=== PATIENT | female | born 1945 | race Caucasian/White ===

== ENCOUNTER 2022-07-05 17:54 | Emergency (ER) | payer MEDICARE, OTHER ==
[2022-07-05 18:08] VITALS: PULSE 96; RESP 18; TEMP 97.8
[2022-07-05] MEDS ORDERED: LORazepam 2 MG/ML INJ IV STA (18:43)
[2022-07-05 18:49] LABS: Appearance,Urine Clear (Clear); Bacteria,Urine Few /hpf; Bilirubin,Urine Negative (Negative); Blood,Urine Negative (Negative); Color,Urine Colorless; Glucose,Urine (UA) Negative (Negative); Ketones,Urine 1+ (Negative); Leukocyte Esterase,Urine Small (Negative); Mucus,Urine Rare /hpf; Nitrite,Urine Negative (Negative); Protein,Urine Negative (Negative); RBC,Urine 1 /hpf (0-5); Specific Gravity,Urine 1.003 (1.001-1.035); Urobilinogen,Urine <2.0 mg/dL (<2.0); WBC,Urine 6 /hpf (0-5)
[2022-07-05 19:01] LABS: Amphetamine Screen,Urine Not Detected (NotDetected); Barbiturate Screen,Urine Not Detected (NotDetected); Benzodiazepines Screen,Urine Detected (NotDetected); Cocaine Screen,Urine Not Detected (NotDetected); Methadone Screen, Urine Not Detected (NotDetected); Opiate Screen,Urine Not Detected (NotDetected); Oxycodone Screen, Urine Not Detected (NotDetected); Phencyclidine Screen,Urine Not Detected (NotDetected); Tricyclic Antidepressant,Urine Not Detected (NotDetected); Urn Cannabinoid Scrn Not Detected (NotDetected)
--- NOTE | 2022-07-05 19:28 | XR ---
EXAMINATION TYPE: XR ankle complete LT DATE OF EXAM: 07/05/2022 COMPARISON: NONE HISTORY: Pain TECHNIQUE: 3 views FINDINGS: Ankle mortise is anatomic. There is a single screw fusing the subtalar joint. There is mild soft tissue swelling over the lateral malleolus. There is plantar calcaneal spurring. IMPRESSION: Lateral soft tissue swelling. No fracture.
--- NOTE | 2022-07-05 19:28 | XR ---
EXAMINATION TYPE: XR foot complete LT DATE OF EXAM: 07/05/2022 COMPARISON: NONE HISTORY: Pain TECHNIQUE: 3 views FINDINGS: There is a single screw fusing the subtalar joint. Metatarsals are intact. There is narrowi ng and spurring at the first MP joint. No fracture nor dislocation. There is plantar calcaneal spurri ng. IMPRESSION: No acute abnormality of the left foot. No fracture.
--- NOTE | 2022-07-05 19:29 | XR ---
EXAMINATION TYPE: XR tibia fibula LT DATE OF EXAM: 07/05/2022 COMPARISON: NONE HISTORY: Pain TECHNIQUE: 3 views FINDINGS: The tibia and fibula appear intact. There is left knee prosthesis. Components appear in angelique tomic position. There is some mild vascular calcification. IMPRESSION: No acute abnormality of the left tibia and fibula.
--- NOTE | 2022-07-05 20:07 | ED ---
Overdose HPI - General Chief Complaint: Overdose Stated Complaint: overdose Time Seen by Provider: 07/05/22 18:00 Source: EMS Mode of arrival: EMS Limitations: no limitations - History of Present Illness Initial Comments: 77-year-old female past medical history of hypertension who presents to the emergency department reporting overdosed on the medication. Patient reports that she has been having some left leg pain since she sustained a fall last week. She was supposed to see her primary care and have an x-ray performed today. She was having pain in the lower extremity and therefore she took her tramadol. She thought she was due for another dose however ended up taking two 50 mg tramadol only 3 hours apart instead of 6 hours apart. Patient arrives extremely anxious. She takes 1 mg of Xanax 3 times daily however has been out for the past 4 days because the pharmacy has been out of the medication. was able to successfully picker / packer the medication today however patient called EMS for her symptoms prior to him coming. No reported confusion. She denies chest pain or shortness of breath. No numbness, tingling or weakness in her arteries. No alleviating, precipitating or modifying factors - Related Data Allergies Allergy/AdvReac Type Severity Reaction Status Date / Time Unable to Assess Allergy Verified 07/05/22 18:09 Review of Systems ROS Statement: Those systems with pertinent positive or pertinent negative responses have been documented in the HPI. ROS Other: All systems not noted in ROS Statement are negative. Past Medical History Past Medical History: Hypertension, Thyroid Disorder Additional Past Medical History / Comment(s): "smell disorder" (unknown name) Smoking Status: Former smoker Past Alcohol Use History: None Reported Past Drug Use History: None Reported General Exam Limitations: no limitations General appearance: alert, anxious Head exam: Present: atraumatic, normocephalic, normal inspection Eye exam: Present: normal appearance, PERRL, EOMI. Absent: scleral icterus, conjunctival injection, periorbital swelling ENT exam: Present: normal exam, mucous membranes moist Neck exam: Present: normal inspection. Absent: tenderness, meningismus, lymphadenopathy Respiratory exam: Present: normal lung sounds bilaterally. Absent: respiratory distress, wheezes, rales, rhonchi, stridor Cardiovascular Exam: Present: regular rate, normal rhythm, normal heart sounds. Absent: systolic murmur, diastolic murmur, rubs, gallop, clicks GI/Abdominal exam: Present: soft, normal bowel sounds. Absent: distended, tenderness, guarding, rebound, rigid Extremities exam: Present: normal inspection, full ROM, normal capillary refill. Absent: tenderness, pedal edema, joint swelling, calf tenderness Back exam: Present: normal inspection Neurological exam: Present: alert, oriented X3, CN II-XII intact Psychiatric exam: Present: normal affect, normal mood Skin exam: Present: warm, dry, intact, normal color. Absent: rash Course Vital Signs 07/05/22 07/05/22 17:58 20:29 Temperature 97.8 F Pulse Rate 96 96 Respiratory 18 18 Rate Blood Pressure 126/75 138/81 O2 Sat by Pulse 98 98 Oximetry Medical Decision Making - Medical Decision Making Was pt. sent in by a medical professional or institution (GILMER Yoder, [employer] M[employer]ING [employer]IVER, urgent care, hospital, or assisted...) When possible be specific @ -No Did you speak to anyone other than the patient for history (EMS, parent, family, police, friend...)? What history was obtained from this source @ -EMS Did you review nursing and triage notes (agree or disagree)? Why? @ -I reviewed and agree with nursing and triage notes Were old charts reviewed (outside hosp., previous admission, EMS record, old EKG, old radiological studies, urgent care reports/EKG's, assisted records)? Report findings @ -No old charts were reviewed Differential Diagnosis (chest pain, altered mental status, abdominal pain women, abdominal pain men, vaginal bleeding, weakness, fever, dyspnea, syncope, headache, dizziness, GI bleed, back pain, seizure, CVA, palpatations, mental health, musculoskeletal)? @ -anxiety attack, SVT, ACS EKG interpreted by me (3pts min.). @ -yes X-rays interpreted by me (1pt min.). @ -yes CT interpreted by me (1pt min.). @ -None done U/S interpreted by me (1pt. min.). @ -None done What testing was considered but not performed or refused? (CT, X-rays, U/S, labs)? Why? @ -None What meds were considered but not given or refused? Why? @ -No Did you discuss the management of the patient with other professionals (professionals i.e. GILMER Yoder, B[employer] MIXING TRUCK DRIVER, lab, RT, psych nurse, social media coordinator, gate manager, teacher, financial compliance officer, casework specialist)? Give summary @ -No Was smoking cessation discussed for >3mins.? @ -No Was critical care preformed (if so, how long)? @ -No Were there social determinants of health that impacted care today? How? (Homelessness, low income, unemployed, alcoholism, drug addiction, transportation, low edu. Level, literacy, decrease access to med. care, custodial, rehab)? @ -None Was there de-escalation of care discussed even if they declined (Discuss DNR or withdrawal of care, Hospice)? DNR status @ -No What co-morbidities impacted this encounter? (DM, HTN, Smoking, COPD, CAD, C ancer, CVA, ARF, Chemo, Hep., AIDS, mental health diagnosis, sleep apnea, morbid obesity)? @ -anxiety Was patient admitted / discharged? Hospital course, mention meds given and route, prescriptions, significant lab abnormalities, going to OR and other pertinent info. @ -Upon arrival patient placed in room 23. Thorough history and physical exam was performed. Patient is provided with a dose of Ativan as there is concern for benzo withdrawal at this time. She is sent for x-ray of her left foot, ankle and tib-fib which demonstrates no acute fractures. Patient resting more comfortably in bed. Discussed diagnosis, differential treatment options. Patient stable for discharge home at this time and instructed to follow up with primary care doctor. Resume taking her pain and anxiety medications as directed. Return for new symptoms. Patient discharged home in stable condition Undiagnosed new problem with uncertain prognosis? @ -yes Drug Therapy requiring intensive monitoring for toxicity (Heparin, Nitro, Insulin, Cardizem)? @ -No Were any procedures done? @ -No Diagnosis/symptom? @ -acute anxiety, benzo withdrawal, left leg pain Acute, or Chronic, or Acute on Chronic? @ -default Uncomplicated (without systemic symptoms) or Complicated (systemic symptoms)? @ -complicated Side effects of treatment? @ -No Exacerbation, Progression, or Severe Exacerbation? @ -No Poses a threat to life or bodily function? How? (Chest pain, [place], [place], pneumonia, PE, COPD, DKA, ARF, appy, cholecystitis, CVA, Diverticulitis, Homicidal, Suicidal, threat to staff... and all critical care pts) @ -yes - Lab Data Lab Results 07/05/22 Range/Units 18:13 Urine Color Colorless Urine Appearance Clear (Clear) Urine pH 7.0 (5.0-8.0) Ur Specific [place] 1.003 (1.001-1.035) Urine Protein Negative (Negative) Urine Glucose (UA) Negative (Negative) Urine Ketones 1+ H (Negative) Urine Blood Negative (Negative) Urine Nitrite Negative (Negative) Urine Bilirubin Negative (Negative) Urine Urobilinogen <2.0 (<2.0) mg/dL Ur Leukocyte Esterase Small H (Negative) Urine RBC 1 (0-5) /hpf Urine WBC 6 H (0-5) /hpf Urine Bacteria Few H (None) /hpf Urine Mucus Rare H (None) /hpf Urine Opiates Screen Not Detected (NotDetected) Ur Oxycodone Screen Not Detected (NotDetected) Urine Methadone Screen Not Detected (NotDetected) Ur Propoxyphene Screen Not Detected (NotDetected) Ur Barbiturates Screen Not Detected (NotDetected) U Tricyclic Antidepress Not Detected (NotDetected) Ur Phencyclidine Scrn Not Detected (NotDetected) Ur Amphetamines Screen Not Detected (NotDetected) U Methamphetamines Scrn Not Detected (NotDetected) U Benzodiazepines Scrn Detected H (NotDetected) Urine Cocaine Screen Not Detected (NotDetected) U Marijuana (THC) Screen Not Detected (NotDetected) - EKG Data EKG Comments: EKG demonstrates sinus rhythm with a rate of 82. OH interval 181. QRS 82. QTC of 408. No acute ST segment elevations or depressions Disposition Clinical Impression: Misuse of medication, Benzodiazepine withdrawal, Leg pain Disposition: HOME SELF-CARE Condition: Stable Instructions (If sedation given, give patient instructions): Leg Pain (ED) Additional Instructions: Begin taking your medications as directed. You can take another dose of your Xanax tonight. Follow-up with your doctor and return for any new or worsening symptoms Is patient prescribed a controlled substance at d/c from ED?: No Referrals: Curt Glass DO [Primary Care Provider] - 1-2 days Madi Selby MD [STAFF PHYSICIAN] - 1-2 days Time of Disposition: 20:06
[2022-07-05 20:31] VITALS: BP 138/81
== END 2022-07-05 20:39 | disposition home or self-care (01) ==
LOC: EC 17:54
DX: T40.421A Poisoning by tramadol, accidental (unintentional), initial encounter (principal); F13.239 Sedative, hypnotic or anxiolytic dependence with withdrawal, unspecified; M79.605 Pain in left leg; I10 Essential (primary) hypertension; Z87.891 Personal history of nicotine dependence; W19.XXXA Unspecified fall, initial encounter
CPT/HCPCS: 93005; 81001; 80306; 73590; 73610; 73630; 99285; 96374; J2060

== ENCOUNTER → 2023-03-13 | Outpatient (CLI) | payer MEDICARE, OTHER ==
--- NOTE | 2023-03-15 16:21 | CT ---
EXAMINATION TYPE: CT chest wo con DATE OF EXAM: 03/13/2023 COMPARISON: None available HISTORY: 78-year-old female S25.41, pain, sprain of ribs, fall TECHNIQUE: Contiguous axial scanning of the chest without IV contrast. Coronal/sagittal reconstructio ns performed. CT DLP: 393mGycm. Automatic exposure control utilized for a dose reduction. FINDINGS: There are asymmetrically increased densities along the upper outer quadrant right breast extending in to the right axilla. Suspect some surgical clips in the left breast. The heart is upper limits of normal in size without pericardial effusion. Scattered three-vessel ronel nary calcifications are present. Aorta normal caliber with mild atherosclerotic calcifications and conventional arch vessel branching anatomy. No thoracic lymphadenopathy by CT size criteria. Borderline caliber to the main right and left pulmonary arteries measuring up to 2.5 cm may reflect u nderlying pulmonary hypertension. Minimal emphysematous change. Some strandy atelectasis at the left base. No consolidation or pleural effusion. Visualized upper abdomen shows nephrolithiasis bilaterally measuring up to 1.7 cm. Accentuated mid thoracic kyphosis and moderate degenerative disc disease. No acute rib fracture ident ified. IMPRESSION: 1. COPD with minimal emphysema. 2. Coronary artery disease with scattered three-vessel coronary artery calcifications. 3. Asymmetrically increased densities along the upper outer quadrant of the right breast extending in to the right axilla. Unclear if this represents injury and bruising related to the patient's reported fall or if there was previous surgery/post treatment change here. Clinically correlate as to the nee d for further diagnostic mammogram and ultrasound evaluation. 4. There appears to be some surgical clips in the left breast. Again, clinically correlate.
== END | disposition home or self-care (01) ==
LOC: RADCTMAIN 12:23
PROVIDERS: ATTEND Internal Medicine
DX: S23.41XA Sprain of ribs, initial encounter (principal); J43.9 Emphysema, unspecified; J44.9 Chronic obstructive pulmonary disease, unspecified; J98.4 Other disorders of lung
CPT/HCPCS: 71250

== ENCOUNTER → 2023-04-26 | Outpatient (CLI) | payer MEDICARE, OTHER ==
--- NOTE | 2023-04-26 14:33 | MM ---
Reason for Exam: Additional evaluation requested from prior study. Last mammogram was performed 1 year(s) and 6 month(s) ago. Patient History: Menarche at age 9. First Full-Term at age 32. Late child-bearing (after 30). Left ovary removed at age 43. Right ovary removed at age 43. Hysterectomy at age 43. Postmenopausal. Breast cancer, left, under age 50. Breast cancer, right, at or over age 50. Maternal cousin had ovarian cancer under age 50. Sister had breast cancer, bilateral, under age 50. Prior Study Comparison: 06/30/2019 Bilateral Diagnostic Mammogram, [facility]. 07/22/2020 Bilateral Diagnostic Mammogram, [facility]. 11/16/2021 Bilateral Screening Mammogram, [facility]. Tissue Density: The breast tissue is heterogeneously dense. This may lower the sensitivity of mammography. Findings: Analyzed By CAD. Pattern appears stable. Multiple surgical clips are within the left breast. Some breast distortion is on the right or prior scar marker. Benign vascular calcifications on the right. No suspicious groups of microcalcifications, spiculated or lobular masses, architectural distortion or other secondary signs of malignancy are mammographically apparent. Overall Assessment: Benign, BI-RAD 2 Management: Diagnostic Mammogram of both breasts in 1 year. A negative mammogram report should not preclude additional follow up of suspicious palpable abnormalities. Patient should continue monthly self breast exam. A clinical breast exam by your physician is recommended on an annual basis and results should be correlated with mammographic findings. Electronically signed and approved by: Kirt Jeter D.O. Radiologis
--- NOTE | 2023-04-26 17:42 | USB ---
Reason for Exam: Follow-up at short interval from prior study. Patient History: Menarche at age 9. First Full-Term at age 32. Late child-bearing (after 28). Left ovary removed at age 43. Right ovary removed at age 43. Hysterectomy at age 43. Postmenopausal. Breast cancer, left, under age 50. Breast cancer, right, at or over age 50. Maternal cousin had ovarian cancer under age 50. Sister had breast cancer, bilateral, under age 50. Technique: Method: Targeted. Prior Study Comparison: 06/30/2019 Bilateral Diagnostic Mammogram, [facility]. 07/22/2020 Bilateral [facility] M[facility], [facility]. 07/22/2020 Right Diagnostic Ultrasound, [facility]. 11/16/2021 Bilateral Screening Mammogram, [facility]. 11/16/2021 Right Diagnostic Ultrasound, [facility]. Findings: The axilla of the right breast was scanned. No solid or cystic masses are identified.. Right axilla appears unremarkable. Overall Assessment: Negative, BI-RAD 1 Management: Diagnostic Mammogram of both breasts in 1 year. A clinical breast exam by your physician is recommended on an annual basis and results should be correlated with mammographic findings. This exam should not preclude additional follow-up of suspicious palpable abnormalities. Results were given to the patient verbally at the time of exam. Electronically signed and approved by: Kirt Jeter D.O. Radiologis
== END | disposition home or self-care (01) ==
LOC: RADMAMWWP 13:45
PROVIDERS: ATTEND Internal Medicine
DX: C50.919 Malignant neoplasm of unspecified site of unspecified female breast (principal); R92.333 Mammographic heterogeneous density, bilateral breasts; Z80.3 Family history of malignant neoplasm of breast; Z78.0 Asymptomatic menopausal state
CPT/HCPCS: 77066; 76642; G0279; 77062

== ENCOUNTER → 2023-05-18 | Outpatient (CLI) | payer MEDICARE, OTHER ==
--- NOTE | 2023-05-18 16:20 | CT ---
EXAMINATION TYPE: CT abdomen pelvis wo con DATE OF EXAM: 05/18/2023 COMPARISON: None HISTORY: left flank pain CT DLP: 361.9 mGycm Automated exposure control for dose reduction was used. TECHNIQUE: Helical acquisition of images was performed from the lung bases through the pelvis. FINDINGS: Lung bases are clear. There are 3 nonobstructing calcifications in the right kidney the largest of which measures 6.3 mm. T here are multiple clusters of calcifications in the left kidney which appears moderately atrophic. Th e largest cluster of calcifications in the left upper pole and measures 19 mm. There is no definite h ydronephrosis but the proximal ureter is mildly dilated and there is a 5 mm calculus in the proximal left ureter. Caliber of the abdominal aorta is normal and there is no retroperitoneal adenopathy. Gallbladder is normal. There is no biliary ductal dilatation. There is no organomegaly of the solid v isceral organs of the upper abdomen. The bowel loops are normal and there is no obstruction or inflammation. There is no free intraperiton eal air-fluid. There is no pelvic mass or adenopathy. The osseous structures are intact. IMPRESSION: 1. Multiple large clusters of calcifications within the left kidney which appears moderately atrophic . There is no dilatation of the pelvicalyceal system but the proximal left ureter is mildly dilated a nd there is a 5 mm proximal left ureteral calculus. 2. 3 nonobstructing calcifications the right kidney the largest of which is 6.2 mm.
== END | disposition home or self-care (01) ==
LOC: RADCTMAIN 13:58
PROVIDERS: ATTEND Urology
DX: N20.2 Calculus of kidney with calculus of ureter (principal); N28.89 Other specified disorders of kidney and ureter
CPT/HCPCS: 74176

== ENCOUNTER 2023-10-26 19:05 | Emergency (ER) | payer MEDICARE, OTHER ==
[2023-10-26 19:15] VITALS: BP 140/81; PULSE 66; RESP 18; TEMP 97.9
--- NOTE | 2023-10-26 19:35 | ED ---
General Adult HPI - General Chief complaint: Recheck/Abnormal Lab/Rx Stated complaint: Allergic Reaction Time Seen by Provider: 10/26/23 19:19 Source: patient, EMS Mode of arrival: EMS - History of Present Illness Initial comments: 78-year-old female presenting with chief complaint of burning in the nose and mouth. Patient reports that she is very sensitive to scents. She had someone come over today to help her clean who was wearing perfume. Since then she has had worsening burning in the nose and mouth. She is having no difficulty breathing or swallowing. No nausea vomiting or abdominal pain. No swelling of the lips or face. - Related Data Home Medications Medication Instructions Recorded Confirmed ALPRAZolam [Xanax] 1 mg PO BID 06/15/23 06/19/23 Atorvastatin [Lipitor] 40 mg PO HS 06/15/23 06/19/23 Cyanocobalamin [Vitamin B-12] 500 mcg PO DAILY 06/15/23 06/15/23 Ezetimibe [Zetia] 10 mg PO 1600 06/15/23 06/19/23 Levocetirizine Dihydrochloride 5 mg PO QAM 06/15/23 06/19/23 [Xyzal] Levothyroxine Sodium [Synthroid] 25 mcg PO DAILY 06/15/23 06/19/23 Losartan Potassium 50 mg PO 1600 06/15/23 06/19/23 Magnesium Oxide [Mag-Ox] 500 mg PO HS 06/15/23 06/15/23 Pyridoxine [Vitamin B-6] 25 mg PO QAM 06/15/23 06/15/23 Tromethamine Unknown Dose 1 dose PO Q10D 06/15/23 06/19/23 Venlafaxine HCl [Effexor] 37.5 mg PO QAM 06/15/23 06/19/23 atenoloL [Tenormin] 25 mg PO BID 06/15/23 06/19/23 cefUROXime axetiL [Ceftin] 500 mg PO BID 06/18/23 06/19/23 traMADol HCl [Ultram] 50 mg PO BID PRN 06/18/23 06/19/23 Previous Rx's Medication Instructions Recorded Ketorolac [Toradol] 10 mg PO Q6HR PRN #15 tab 06/19/23 Allergies Allergy/AdvReac Type Severity Reaction Status Date / Time amoxicillin AdvReac "I had Verified 10/26/23 19:16 diarrheafor 4 days." Review of Systems ROS Statement: Those systems with pertinent positive or pertinent negative responses have been documented in the HPI. ROS Other: All systems not noted in ROS Statement are negative. Past Medical History Past Medical History: Hypertension, Thyroid Disorder Additional Past Medical History / Comment(s): "smell disorder" (unknown name) History of Any Multi-Drug Resistant Organisms: None Reported Additional Past Surgical History / Comment(s): Lt breast mastectomy, lt and rt breast bx. "Blocked small intestine 2 years ago.", kidney stones removed 08/2023 Past Anesthesia/Blood Transfusion Reactions: No Reported Reaction Past Psychological History: Anxiety Smoking Status: Former smoker Past Alcohol Use History: None Reported Past Drug Use History: None Reported - Past Family History Mother Family Medical History: No Reported History General Exam General appearance: alert, in no apparent distress Head exam: Present: atraumatic, normocephalic Eye exam: Present: normal appearance, EOMI. Absent: periorbital swelling ENT exam: Present: normal oropharynx, mucous membranes moist Expanded Mouth exam: Present: normal external inspection Neck exam: Present: normal inspection. Absent: meningismus Respiratory exam: Present: normal lung sounds bilaterally. Absent: respiratory distress, wheezes, rales, rhonchi, stridor Cardiovascular Exam: Present: regular rate, normal rhythm, normal heart sounds. Absent: systolic murmur, diastolic murmur, rubs, gallop, clicks Neurological exam: Present: alert, oriented X3 Psychiatric exam: Present: normal affect, normal mood Skin exam: Present: warm, dry Course Vital Signs 10/26/23 19:07 Temperature 97.9 F Pulse Rate 66 Respiratory 18 Rate Blood Pressure 140/81 O2 Sat by Pulse 99 Oximetry Medical Decision Making - Medical Decision Making Was pt. sent in by a medical professional or institution (, PA, NO EXPERIENCE, urgent care, hospital, or longterm...) When possible be specific @ -No Did you speak to anyone other than the patient for history (EMS, parent, family, police, friend...)? What history was obtained from this source @ -No Did you review nursing and triage notes (agree or disagree)? Why? @ -I reviewed and agree with nursing and triage notes Were old charts reviewed (outside hosp., previous admission, EMS record, old EKG, old radiological studies, urgent care reports/EKG's, longterm records)? Report findings @ -No old charts were reviewed Differential Diagnosis (chest pain, altered mental status, abdominal pain women, abdominal pain men, vaginal bleeding, weakness, fever, dyspnea, syncope, headache, dizziness, GI bleed, back pain, seizure, CVA, palpatations, mental health, musculoskeletal)? @ -Differential includes general allergic reaction, anaphylaxis, general irritation, this is not an all-inclusive list EKG interpreted by me (3pts min.). @ -As above X-rays interpreted by me (1pt min.). @ -None done CT interpreted by me (1pt min.). @ -None done U/S interpreted by me (1pt. min.). @ -None done What testing was considered but not performed or refused? (CT, X-rays, U/S, labs )? Why? @ -None What meds were considered but not given or refused? Why? @ -None Did you discuss the management of the patient with other professionals (professionals i.e. , PA, NO EXPERIENCE, lab, RT, psych nurse, health care social worker, release and technical records clerk, teacher, court collections officer, outsole caser)? Give summary @ -No Was smoking cessation discussed for >3mins.? @ -No Was critical care preformed (if so, how long)? @ -No Were there social determinants of health that impacted care today? How? (Homelessness, low income, unemployed, alcoholism, drug addiction, transportation, low edu. Level, literacy, decrease access to med. care, correction, rehab)? @ -No Was there de-escalation of care discussed even if they declined (Discuss DNR or withdrawal of care, Hospice)? DNR status @ -No What co-morbidities impacted this encounter? (DM, HTN, Smoking, COPD, CAD, Cancer, CVA, ARF, Chemo, Hep., AIDS, mental health diagnosis, sleep apnea, morbid obesity)? @ -None Was patient admitted / discharged? Hospital course, mention meds given and route, prescriptions, significant lab abnormalities, going to OR and other pertinent info. @ -78-year-old female presenting with chief complaint of burning in the nose and mouth after smelling perfume while at home. States that she is very sensitive to strong scents. On exam there are no signs of angioedema, heart and lungs are clear to auscultation. She shows no acute signs of distress. She is treated with hydroxyzine and Pepcid. On reassessment she does report some continued burning in the nostrils. Patient previously denied abdominal pain, now is complaining of burning abdominal pain. States that she regularly has this after taking her Lipitor and has been ongoing for several weeks. No changes. No nausea or vomiting. No chest pain or difficulty breathing. Basic labs were obtained which show no leukocytosis or anemia. Amylase and lipase are WNL. AST 38. Patient was given a GI cocktail. She is resting showing no acute signs of distress. Considering symptoms have been ongoing for quite some time she may follow-up with her PCP. Discharged home. Follow-up with PCP. Report back to ER with any new or worsening symptoms. Discussed return parameters and answered all questions. Patient conveyed verbal understanding and agreed to the plan. I discussed this case in detail with my attending Dr. Prieto Undiagnosed new problem with uncertain prognosis? @ -No Drug Therapy requiring intensive monitoring for toxicity (Heparin, Nitro, Insulin, Cardizem)? @ -No Were any procedures done? @ -No Diagnosis/symptom? @ -Increase sensitivity to smell, gastritis Acute, or Chronic, or Acute on Chronic? @ -Acute Uncomplicated (without systemic symptoms) or Complicated (systemic symptoms)? @ -Uncomplicated Side effects of treatment? @ -No Exacerbation, Progression, or Severe Exacerbation? @ -No Poses a threat to life or bodily function? How? (Chest pain, [place], [place], pneumonia, PE, COPD, DKA, ARF, appy, cholecystitis, CVA, Diverticulitis, Homicidal, Suici cecy, threat to staff... and all critical care pts) @ -Low likelihood - Lab Data Result diagrams: 10/26/23 22:22 10/26/23 22:22 Lab Results 10/26/23 10/26/23 Range/Units 22:22 22:22 WBC 7.9 (3.8-10.6) k/uL RBC 4.48 (3.80-5.40) m/uL Hgb 13.7 (11.4-16.0) gm/dL Hct 42.8 (34.0-46.0) % MCV 95.5 (80.0-100.0) fL MCH 30.5 (25.0-35.0) pg MCHC 31.9 (31.0-37.0) g/dL RDW 12.3 (11.5-15.5) % Plt Count 197 (150-450) k/uL MPV 8.4 Neutrophils % 54 % Lymphocytes % 36 % Monocytes % 5 % Eosinophils % 3 % Basophils % 0 % Neutrophils # 4.2 (1.3-7.7) k/uL Lymphocytes # 2.8 (1.0-4.8) k/uL Monocytes # 0.4 (0-1.0) k/uL Eosinophils # 0.2 (0-0.7) k/uL Basophils # 0.0 (0-0.2) k/uL Sodium 141 (137-145) mmol/L Potassium 4.0 (3.5-5.1) mmol/L Chloride 111 H (98-107) mmol/L Carbon Dioxide 23 (22-30) mmol/L Anion Gap 7 mmol/L BUN 10 (7-17) mg/dL Creatinine 0.54 (0.52-1.04) mg/dL Est GFR (CKD-EPI)AfAm >90 (>60 ml/min/1.73 sqM) Est GFR (CKD-EPI)NonAf 89 (>60 ml/min/1.73 sqM) Glucose 97 (74-99) mg/dL Calcium 9.5 (8.4-10.2) mg/dL Total Bilirubin 1.1 (0.2-1.3) mg/dL AST 38 H (14-36) U/L ALT 26 (4-34) U/L Alkaline Phosphatase 81 (38-126) U/L Total Protein 7.3 (6.3-8.2) g/dL Albumin 4.7 (3.5-5.0) g/dL Amylase 39 (30-110) U/L Lipase 261 (23-300) U/L Disposition Clinical Impression: Increased sensitivity of smell, Gastritis Disposition: HOME SELF-CARE Condition: Fair Instructions (If sedation given, give patient instructions): Gastritis (ED) Additional Instructions: Follow-up with your PCP. Report back to ER with any new or worsening symptoms. Is patient prescribed a controlled substance at d/c from ED?: No Referrals: Khushboo Mtz MD [Primary Care Provider] - 1-2 days Time of Disposition: 23:02
[2023-10-26] MEDS: hydrOXYzine pamoate 25 MG CAP PO STA (20:07)
[2023-10-26] MEDS: FAMOTIDINE 20 MG TAB PO STA (20:08)
[2023-10-26] MEDS: MAG HYDROX/AL HYDROX/SIMETH 30 ML, HYOSCYAMINE ELIXIR 10 ML, LIDOCAINE VISCOUS 2% 10 ML PO STA (21:46)
[2023-10-26] MEDS: FAMOTIDINE 20 MG/2 ML VIAL IV STA (22:19)
[2023-10-26 22:38] LABS: Basophils % (A) 0 %; Eosinophils # (A) 0.2 k/uL (0-0.7); Eosinophils % (A) 3 %; HCT 42.8 % (34.0-46.0); HGB 13.7 gm/dL (11.4-16.0); Lymphocytes # (A) 2.8 k/uL (1.0-4.8); Lymphocytes % (A) 36 %; MCH 30.5 pg (25.0-35.0); MCHC 31.9 g/dL (31.0-37.0); MCV 95.5 fL (80.0-100.0); Mean Platelet Volume 8.4; Monocytes # (A) 0.4 k/uL (0-1.0); Monocytes % (A) 5 %; Neutrophils # (A) 4.2 k/uL (1.3-7.7); Neutrophils % (A) 54 %; Platelet Count 197 k/uL (150-450); RBC 4.48 m/uL (3.80-5.40); RDW 12.3 % (11.5-15.5); WBC 7.9 k/uL (3.8-10.6)
[2023-10-26 22:51] LABS: ALT 26 U/L (4-34); AST 38 U/L (14-36); African American GFR (CKD) >90 (>60 ml/min/1.73 sqM); Albumin 4.7 g/dL (3.5-5.0); Alkaline Phosphatase 81 U/L (38-126); Amylase 39 U/L (30-110); Anion Gap 7 mmol/L; Blood Urea Nitrogen 10 mg/dL (7-17); Calcium 9.5 mg/dL (8.4-10.2); Carbon Dioxide 23 mmol/L (22-30); Chloride 111 mmol/L (98-107); Glucose 97 mg/dL (74-99); Lipase 261 U/L (23-300); Non-African American GFR(CKD) 89 (>60 ml/min/1.73 sqM); Sodium 141 mmol/L (137-145); Total Bilirubin 1.1 mg/dL (0.2-1.3); Total Protein 7.3 g/dL (6.3-8.2)
== END 2023-10-26 23:09 | disposition home or self-care (01) ==
LOC: EC 19:05 → SUPCPDRO 19:05 → EC 23:09
DX: K29.70 Gastritis, unspecified, without bleeding (principal); R43.8 Other disturbances of smell and taste; Z88.0 Allergy status to penicillin; Z87.891 Personal history of nicotine dependence
CPT/HCPCS: 36415; 80053; 82150; 83690; 85025; 99283

== ENCOUNTER 2023-12-26 17:07 | Emergency (ER) | payer MEDICARE, OTHER ==
--- NOTE | 2023-12-26 18:08 | ED ---
General Adult HPI - General Chief complaint: Fall Stated complaint: Abdominal Pain Time Seen by Provider: 12/26/23 17:25 Source: patient, RN notes reviewed, old records reviewed Mode of arrival: ambulatory Limitations: no limitations - History of Present Illness Initial comments: This an 78-year-old female who presents to the emergency department stating that 2 weeks ago she fell down the bleachers and hit her right side on the bleacher steps also hit her head right side of the head on a pole. Patient states she did not lose consciousness and was not dazed. Patient denies any neck pain. Patient complains of right flank pain and right proximal humerus pain. Patient also complains of a mild headache. Patient denies any lower extremity pain pa tient has any hip pain. Patient denies abdominal pain. - Related Data Home Medications Medication Instructions Recorded Confirmed ALPRAZolam [Xanax] 1 mg PO BID 06/15/23 06/19/23 Atorvastatin [Lipitor] 40 mg PO HS 06/15/23 06/19/23 Cyanocobalamin [Vitamin B-12] 500 mcg PO DAILY 06/15/23 06/15/23 Ezetimibe [Zetia] 10 mg PO 1600 06/15/23 06/19/23 Levocetirizine Dihydrochloride 5 mg PO QAM 06/15/23 06/19/23 [Xyzal] Levothyroxine Sodium [Synthroid] 25 mcg PO DAILY 06/15/23 06/19/23 Losartan Potassium 50 mg PO 1600 06/15/23 06/19/23 Magnesium Oxide [Mag-Ox] 500 mg PO HS 06/15/23 06/15/23 Pyridoxine [Vitamin B-6] 25 mg PO QAM 06/15/23 06/15/23 Tromethamine Unknown Dose 1 dose PO Q10D 06/15/23 06/19/23 Venlafaxine HCl [Effexor] 37.5 mg PO QAM 06/15/23 06/19/23 atenoloL [Tenormin] 25 mg PO BID 06/15/23 06/19/23 cefUROXime axetiL [Ceftin] 500 mg PO BID 06/18/23 06/19/23 traMADol HCl [Ultram] 50 mg PO BID PRN 06/18/23 06/19/23 Previous Rx's Medication Instructions Recorded Ketorolac [Toradol] 10 mg PO Q6HR PRN #15 tab 06/19/23 Ketorolac [Toradol] 10 mg PO Q8HR #15 tab 12/26/23 Nitrofurantoin Monohyd/M-Cryst 100 mg PO Q12HR #14 cap 12/26/23 [Macrobid] Allergies Allergy/AdvReac Type Severity Reaction Status Date / Time amoxicillin AdvReac "I had Verified 12/26/23 17:24 diarrheafor 4 days." Review of Systems ROS Statement: Those systems with pertinent positive or pertinent negative responses have been documented in the HPI. ROS Other: All systems not noted in ROS Statement are negative. Past Medical History Past Medical History: Hypertension, Thyroid Disorder Additional Past Medical History / Comment(s): "smell disorder" (unknown name) History of Any Multi-Drug Resistant Organisms: None Reported Additional Past Surgical History / Comment(s): Lt breast mastectomy, lt and rt breast bx. "Blocked small intestine 2 years ago.", kidney stones removed 08/2023 Past Anesthesia/Blood Transfusion Reactions: No Reported Reaction Past Psychological History: Anxiety Smoking Status: Former smoker Past Alcohol Use History: None Reported Past Drug Use History: None Reported - Past Family History Mother Family Medical History: No Reported History General Exam - General Exam Comments Initial Comments: GENERAL: Patient is well-developed and well-nourished. Patient is nontoxic and well- hydrated and is in mild distress. ENT: Neck is soft and supple. No significant lymphadenopathy is noted. Oropharynx is clear. Moist mucous membranes. Neck has full range of motion without eliciting any pain. EYES: The sclera were anicteric and conjunctiva were pink and moist. Extraocular movements were intact and pupils were equal round and reactive to light. Eyelids were unremarkable. PULMONARY: Unlabored respirations. Good breath sounds bilaterally. No audible rales rhonchi or wheezing was noted. CARDIOVASCULAR: There is a regular rate and rhythm without any murmurs gallops or rubs. Patient's right lateral ribs are tender to palpation and right anterior ribs are tender as well. No no sternal tenderness ABDOMEN: Soft and nontender with normal bowel sounds. SKIN: Skin is clear with no lesions or rashes and otherwise unremarkable. NEUROLOGIC: Patient is alert and oriented x3. Cranial nerves II through XII are grossly intact. Motor and sensory are also intact. Normal speech, volume and content. Symmetrical smile. MUSCULOSKELETAL: Normal extremities with adequate strength and full range of motion. LYMPHATICS: No significant lymphadenopathy is noted PSYCHIATRIC: Normal psychiatric evaluation. Limitations: no limitations Course Vital Signs 12/26/23 17:21 Temperature 98.5 F Pulse Rate 74 Respiratory 18 Rate Blood Pressure 153/94 O2 Sat by Pulse 99 Oximetry Medical Decision Making - Medical Decision Making Was pt. sent in by a medical professional or institution (, GILMER, CUTTER OPERATOR HELPER, urgent care, hospital, or detention...) When possible be specific @ -No Did you speak to anyone other than the patient for history (EMS, parent, family, police, friend...)? What history was obtained from this source @ -No Did you review nursing and triage notes (agree or disagree)? Why? @ -I reviewed and agree with nursing and triage notes Were old charts reviewed (outside hosp., previous admission, EMS record, old EKG, old radiological studies, urgent care reports/EKG's, detention records)? Report findings @ -No old charts were reviewed Differential Diagnosis? @ -Differential Musculoskeletal Muscular strain, contusion, ligament sprain, fracture, arthritis, septic arthritis, bursitis, cellulitis, muscle spasm, nerve compression, DVT, arterial occlusion, herpes zoster, electrolyte abnormality, tumor.... This is not meant to be in all inclusive list EKG interpreted by me (3pts min.). @ -As above X-rays interpreted by me (1pt min.). @ -Chest x-ray shows no rib fractures no pneumothorax. X-ray of the humerus shows no fracture CT interpreted by me (1pt min.). @ -CT of the brain shows no acute abnormality U/S interpreted by me (1pt. min.). @ -None done What testing was considered but not performed or refused? (CT, X-rays, U/S, labs)? Why? @ -None What meds were considered but not given or refused? Why? @ -None Did you discuss the management of the patient with other professionals (professionals i.e. GILMER Yoder, CUTTER OPERATOR HELPER, lab, RT, psych nurse, social media marketing specialist, well puller, teacher, senior compliance officer, caser shoe parts)? Give summary @ -No Was smoking cessation discussed for >3mins.? @ -No Was critical care preformed (if so, how long)? @ -No Were there social determinants of health that impacted care today? How? (Homelessness, low income, unemployed, alcoholism, drug addiction, transportation, low edu. Level, literacy, decrease access to med. care, detention, rehab)? @ -No Was there de-escalation of care discussed even if they declined (Discuss DNR or withdrawal of care, Hospice)? DNR status @ -No What co-morbidities impacted this encounter? (DM, HTN, Smoking, COPD, CAD, Cancer, CVA, ARF, Chemo, Hep., AIDS, mental health diagnosis, sleep apnea, morbid obesity)? @ -None Was patient admitted / discharged? Hospital course, mention meds given and route, prescriptions, significant lab abnormalities, going to OR and other pertinent info. @ -Patient's x-rays and CAT scan showed no acute abnormality. Patient was complaining of dysuria so urine was sent patient's urine did show an infection patient was given a gram of Rocephin IM and will be sent home on antibiotics Undiagnosed new problem with uncertain prognosis? @ -No Drug Therapy requiring intensive monitoring for toxicity (Heparin, Nitro, Insulin, Cardizem)? @ -No Were any procedures done? @ -No Diagnosis/symptom? @ -Urinary tract infection Acute, or Chronic, or Acute on Chronic? @ -Acute Uncomplicated (without systemic symptoms) or Complicated (systemic symptoms)? @ -Acute uncomplicated Side effects of treatment? @ -No Exacerbation, Progression, or Severe Exacerbation? @ -No Poses a threat to life or bodily function? How? (Chest pain, [place], [place], pneumonia, PE, COPD, DKA, ARF, appy, cholecystitis, CVA, Diverticulitis, Homicidal, Suicidal, threat to staff... and all critical care pts) @ -No Diagnosis/symptom? @ -Chest contusion right-sided Acute, or Chronic, or Acute on Chronic? @ -Acute Uncomplicated (without systemic symptoms) or Complicated (systemic symptoms)? @ -Uncomplicated Side effects of treatment? @ -None Exacerbation, Progression, or Severe Exacerbation] @ -No Poses a threat to life or bodily function? @ -No Diagnosis/symptom? @ -Arm contusion Acute, or Chronic, or Acute on Chronic? @ -Acute Uncomplicated (without systemic symptoms) or Complicated (systemic symptoms)? @ -Uncomplicated Side effects of treatment? @ -None Exacerbation, Progression, or Severe Exacerbation] @ -No Poses a threat to life or bodily function? @ -No - Lab Data Lab Results 12/26/23 Range/Units 18:57 Urine Color Colorless Urine Appearance Clear (Clear) Urine pH 6.5 (5.0-8.0) Ur Specific [place] 1.006 (1.001-1.035) Urine Protein Negative (Negative) Urine Glucose (UA) Negative (Negative) Urine Ketones Negative (Negative) Urine Blood Trace H (Negative) Urine Nitrite Negative (Negative) Urine Bilirubin Negative (Negative) Urine Urobilinogen <2.0 (<2.0) mg/dL Ur Leukocyte Esterase Large H (Negative) Urine RBC 2 (0-5) /hpf Urine WBC 113 H (0-5) /hpf Ur Squamous Epith Cells <1 (0-4) /hpf Urine Bacteria Many H (None) /hpf Urine Mucus Rare H (None) /hpf Disposition Clinical Impression: Contusion of arm, Fall, Chest wall contusion, Urinary tract infection Disposition: HOME SELF-CARE Condition: Good Instructions (If sedation given, give patient instructions): Fall Prevention for Older Adults (ED), Urinary Tract Infection in Women (ED) Prescriptions: Nitrofurantoin Monohyd/M-Cryst [Macrobid] 100 mg PO Q12HR #14 cap Ketorolac [Toradol] 10 mg PO Q8HR #15 tab Is patient prescribed a controlled substance at d/c from ED?: No Referrals: Khushboo Mtz MD [Primary Care Provider] - 1-2 days Time of Disposition: 19:39
--- NOTE | 2023-12-26 18:20 | CT ---
EXAMINATION TYPE: CT brain wo con DATE OF EXAM: 12/26/2023 COMPARISON: INDICATION: fall, dizziness DLP: 1168.5 mGycm, Automated exposure control for dose reduction was used. CONTRAST: None CT of the brain is performed utilizing 3 mm thick sections through the posterior fossa and 3 mm thick sections through the remaining calvarium. Study is performed within 24 hours of arrival to the hosp ital. No abnormal hyperdensity is present to suggest an acute intracranial hemorrhage. No mass lesion is evident. No acute infarcts are evident. There is some hypodensity adjacent to the right caudate head in the an terior right basal ganglia. Chronic white matter ischemic change could be considered. Indeterminant a ge Lacunar infarct is within the differential. Severe follow-up with MRI. There is additional perive ntricular white matter and deep white matter hypodensity likely on the basis of chronic white matter ischemic changes. Ventricles and sulci are prominent for the patient age. Paranasal sinuses and mastoid air cells within the [id number] are clear. IMPRESSION: 1. Periventricular white matter ischemic type changes with some age-related atrophy. 2. Some focal hypodensity is within the anterior right basal ganglion. Lacunar infarct of indetermin ate age could be present. This could be related to chronic white matter ischemic change. Consider fol low-up with MRI.
[2023-12-26] MEDS: HYDROmorphone 0.5 MG/0.5 ML SYRINGE IM STA (18:21)
--- NOTE | 2023-12-26 18:22 | XR ---
EXAMINATION TYPE: XR chest 2V DATE OF EXAM: 12/26/2023 COMPARISON: None INDICATION: Trauma, pain, fall TECHNIQUE: Frontal and lateral views of the chest are obtained. FINDINGS: The heart size is normal. The pulmonary vasculature is normal. The lungs are clear. No pneumothorax is evident. No displaced rib fractures are identified. IMPRESSION: 1. No acute pulmonary process. 2. No acute posttraumatic changes.
--- NOTE | 2023-12-26 18:22 | XR ---
EXAMINATION TYPE: XR humerus RT DATE OF EXAM: 12/26/2023 COMPARISON: None HISTORY: Trauma, pain, fall TECHNIQUE: 2 view right humerus FINDINGS: No acute fracture evident. Humeral head articulates with the glenoid. Acromioclavicular magaly ction is upper limit for normal without displacement. Follow-up can be performed 7-10 days from acute trauma for continued pain. IMPRESSION: 1. No acute osseous abnormality. Follow-up as clinically indicated.
[2023-12-26 19:28] LABS: Appearance,Urine Clear (Clear); Bacteria,Urine Many /hpf; Bilirubin,Urine Negative (Negative); Blood,Urine Trace (Negative); Color,Urine Colorless; Glucose,Urine (UA) Negative (Negative); Ketones,Urine Negative (Negative); Leukocyte Esterase,Urine Large (Negative); Mucus,Urine Rare /hpf; Nitrite,Urine Negative (Negative); PH, Urine 6.5 (5.0-8.0); Protein,Urine Negative (Negative); RBC,Urine 2 /hpf (0-5); Specific Gravity,Urine 1.006 (1.001-1.035); Squamous Epithelial Cell,Urine <1 /hpf (0-4); Urobilinogen,Urine <2.0 mg/dL (<2.0); WBC,Urine 113 /hpf (0-5)
[2023-12-26] MEDS: ACET/COD 300 MG/30 MG STARTER PACK 6 TAB BTL PO STA (19:54)
[2023-12-26] MEDS: cefTRIAXone 1,000 MG VIAL (IM USE) IM STA (19:58)
[2023-12-26 20:05] VITALS: BP 143/72; PULSE 52; RESP 16; TEMP 98
== END 2023-12-26 20:05 | disposition home or self-care (01) ==
LOC: EC 17:07
CPT/HCPCS: 70450; 71046; 81001; 96372; 99284

== ENCOUNTER → 2024-01-02 | Outpatient (CLI) | payer MEDICARE, OTHER ==
--- NOTE | 2024-01-02 08:31 | MM ---
Reason for Exam: Clinical finding. Last screening mammogram was performed 8 month(s) ago. Indicated Problems: Lump or thickening of the left side for 2 Month(s). Patient History: Menarche at age 9. First Full-Term at age 32. Late child-bearing (after 28). Left ovary removed at age 43. Right ovary removed at age 43. Hysterectomy at age 43. Postmenopausal. Breast cancer, left, under age 50. Breast cancer, right, at or over age 50. Previous chest radiation therapy. Maternal cousin had ovarian cancer under age 50. Sister had breast cancer, bilateral, under age 50. Prior Study Comparison: 06/30/2019 Bilateral Diagnostic Mammogram, [facility]an[facility]reet[facility]. 07/22/2020 Bilateral Diagnostic Mammogram, [facility]anPreet[facility]. 11/16/2021 Bilateral Screening Mammogram, [facility] Preeti. 04/26/2023 Bilateral MG 3D diag mammo w/cad [facility], [facility]. Tissue Density: Left: There are scattered areas of fibroglandular density. Findings: Analyzed By CAD. At the site of clinical concern there is a 15 x 13 mm nodular density. Ultrasound is recommended. No additional masses seen. Overall Assessment: Incomplete: need additional imaging evaluation, BI-RAD 0 Management: Diagnostic Breast Ultrasound of the left breast. . Results were given to the patient verbally at the time of exam. Patient should continue monthly self-breast exams. A clinical breast exam by your physician is recommended on an annual basis. This exam should not preclude additional follow-up of suspicious palpable abnormalities. Note on Jasmyn scores and lifetime risk: 1. A Jasmyn score greater than 3% is considered moderate risk. If this is the case, consider specialist referral to assess eligibility for a risk reducing agent. 2. If overall lifetime risk for the development of breast cancer is 20% or higher, the patient may qualify for future screening with alternating mammogram and breast MRI. Electronically signed and approved by: Dipesh Hansen M.D. Radiologis
--- NOTE | 2024-01-02 08:47 | USB ---
Reason for Exam: Clinical finding. Patient History: Menarche at age 9. First Full-Term at age 32. Late child-bearing (after 30). Left ovary removed at age 43. Right ovary removed at age 43. Hysterectomy at age 43. Postmenopausal. Breast cancer, left, under age 50. Breast cancer, right, at or over age 50. Previous chest radiation therapy. Maternal cousin had ovarian cancer under age 50. Sister had breast cancer, bilateral, under age 50. Technique: Method: Targeted. Prior Study Comparison: 07/22/2020 Bilateral Diagnostic Mammogram, [facility]. 11/16/2021 Bilateral Screening Mammogram, [facility]. 04/26/2023 Bilateral MG 3D diag mammo w/cad ARRON, [facility]. Findings: The upper outer quadrant of the left breast, the area of palpable concern of the left breast, the axilla of the left breast and the retroareolar of the left breast were scanned. Ultrasound of the site of clinical concern as well as the left axilla was normal. There is a spiculated mass with posterior acoustic shadowing which is taller than wide and measures 1.6 x 1.0 cm at the left 2:00 position 3 cm from the nipple. The findings are highly suggestive of malignancy. The left axilla is free of adenopathy. Overall Assessment: Highly suggestive of malignancy, BI-RAD 5 Management: Ultrasound Core Biopsy of the left breast. A clinical breast exam by your physician is recommended on an annual basis and results should be correlated with mammographic findings. This exam should not preclude additional follow-up of suspicious palpable abnormalities. Results were given to the patient verbally at the time of exam. Electronically signed and approved by: Dipesh Hansen M.D. Radiologis
== END | disposition home or self-care (01) ==
LOC: RADMAMWWP 07:53
PROVIDERS: ATTEND Internal Medicine
DX: N63.21 Unspecified lump in the left breast, upper outer quadrant
CPT/HCPCS: 77061; 77065

== ENCOUNTER → 2024-01-17 | Day surgery (SDC) | payer MEDICARE, OTHER ==
--- NOTE | 2024-01-20 07:35 | MM ---
Reason for Exam: Post Procedure Mammogram. Last screening mammogram was performed 8 month(s) ago. Patient History: Menarche at age 9. First Full-Term at age 32. Late child-bearing (after 30). Left ovary removed at age 43. Right ovary removed at age 43. Hysterectomy at age 43. Postmenopausal. Breast cancer, left, under age 50. Breast cancer, right, at or over age 50. Previous chest radiation therapy. Maternal cousin had ovarian cancer under age 50. Sister had breast cancer, bilateral, under age 50. Tissue Density: Left: There are scattered areas of fibroglandular density. Findings: Pattern appears stable Multiple surgical clips are present. Biopsy clip is at a nodular density within the upper outer left breast. Overall Assessment: Probably benign, BI-RAD 3 Management: Diagnostic Mammogram of the left breast in 3 months. Screening Mammogram of the right breast in 3 months. A negative mammogram report should not preclude additional follow up of suspicious palpable abnormalities. Patient should continue monthly self breast exam. A clinical breast exam by your physician is recommended on an annual basis and results should be correlated with mammographic findings. Note on Jasmyn scores and lifetime risk: 1. A Jasmyn score greater than 3% is considered moderate risk. If this is the case, consider specialist referral to assess eligibility for a risk reducing agent. 2. If overall lifetime risk for the development of breast cancer is 20% or higher, the patient may qualify for future screening with alternating mammogram and breast MRI. [facility], , 01/20/2024 7:32 AM. Electronically signed and approved by: Kirt Jeter D.O. Radiologis
--- NOTE | 2024-01-25 12:49 | USB ---
Prior Study Comparison: 11/16/2021 Bilateral Screening Mammogram, [facility]. 04/26/2023 Bilateral MG 3D diag mammo w/cad ARRON, [facility]. 01/02/2024 Left MG 3D diag mammo w/cad LT, [facility]. Pathology Description: Location: 2 o'clock. Marker Left Behind. Needle Type: Mammotome Cores: 4 Skin Nicks: 1 Gauge: 13 The procedure of ultrasound guided core biopsy was explained to the patient. Benefits, alternatives, and risks were discussed. An informed consent was then obtained. A timeout was performed. The patient was placed in supine positioning for imaging and for the procedure. The overlying skin was prepped and draped in usual sterile fashion. Lidocaine was used as anesthetic into the skin and subcutaneous tissue up to area of concern in the left breast. A small skin lionel was made with surgical scalpel. Under ultrasound guidance, a 12-gauge vacuum assisted biopsy gun device was used to obtain 4 core samples. A biopsy clip was left in lesion. Hydromark butterfly core marker was placed. The patient tolerated the procedure well without any immediate complication. The patient was kept in the radiology department for short stay after the procedure and then discharged home in stable condition. Postprocedure mammogram: The patient was transferred to mammography for physician ordered post procedure mammogram for clip placement verification. Clip appears appropriate for the biopsy site. Impression: Successful ultrasound guided core biopsy of area of concern in the left breast, full pathology results to follow. Recommendations: 1. Recommendations are pending pathology results. [facility], , 01/18/2024 4:10 PM. Pathology Results: Result: Malignant, Invasive ductal carcinoma. Pathology and radiology were reviewed. Findings are concordant. LEFT BREAST, 2:00, ULTRASOUND GUIDED CORE BIOPSY: Invasive ductal carcinoma, preliminarily Grade 1 (see Surgical Pathology Cancer Case Summary and comment). Overall Assessment: Malignant Management: Surgical Consultation of the left breast. Electronically signed and approved by: Kirt Jeter D.O. Radiologis
== END ==
LOC: RADUSWWP 12:40
PROVIDERS: ATTEND Surgery
DX: R92.8 Other abnormal and inconclusive findings on diagnostic imaging of breast
CPT/HCPCS: 77065; 88305; 88341; 88342

== ENCOUNTER → 2024-02-21 | Outpatient (CLI) | payer MEDICARE, OTHER ==
--- NOTE | 2024-02-21 08:13 | MM ---
Reason for Exam: Clinical finding. Last screening mammogram was performed 9 month(s) ago. Indicated Problems: Other indicated problem of the right side. Patient History: Menarche at age 9. First Full-Term at age 32. Late child-bearing (after 30). Left ovary removed at age 43. Right ovary removed at age 43. Hysterectomy at age 43. Postmenopausal. Breast cancer, left, under age 50. Breast cancer, right, at or over age 50. Breast cancer, left, age 78. Previous chest radiation therapy. 01/17/2024, Malignant US biopsy breast VAD LT on the left side. Maternal cousin had ovarian cancer under age 50. Sister had breast cancer, bilateral, under age 50. Prior Study Comparison: 04/26/2023 Bilateral MG 3D diag mammo w/cad ARRON, [facility]. 01/02/2024 Left MG 3D diag mammo w/cad LT, [facility]. 01/17/2024 Left MG diagnostic mammo LT wo CAD., [facility]. Tissue Density: Right: The breasts are heterogeneously dense, which may obscure small masses. Findings: Analyzed By CAD. Postsurgical and posttreatment changes right breast. Benign vascular and a couple tiny round calcifications redemonstrated. Lateral central asymmetric density on the CC view has been variably seen on prior studies. On spot compression, the area spreads out compatible with superimposition shadow and/or scar. No significant change. Overall Assessment: Incomplete: need additional imaging evaluation, BI-RAD 0 Management: Diagnostic Breast Ultrasound of the right breast. As ordered. [facility], , 02/21/2024 8:09 AM. Electronically signed and approved by: Lilo Crowder M.D. Radiologist
--- NOTE | 2024-02-21 08:15 | USB ---
Reason for Exam: Clinical finding. Patient History: Menarche at age 9. First Full-Term at age 32. Late child-bearing (after 30). Left ovary removed at age 43. Right ovary removed at age 43. Hysterectomy at age 43. Postmenopausal. Breast cancer, left, under age 50. Breast cancer, right, at or over age 50. Breast cancer, left, age 78. Previous chest radiation therapy. 01/17/2024, Malignant US biopsy breast VAD LT on the left side. Maternal cousin had ovarian cancer under age 50. Sister had breast cancer, bilateral, under age 50. Technique: Method: Whole Breast Handheld. Prior Study Comparison: 04/26/2023 Bilateral MG 3D diag mammo w/cad ARRON, [facility]. 01/02/2024 Left MG 3D diag mammo w/cad LT, [facility]. 01/17/2024 Left MG diagnostic mammo LT wo CAD., [facility]. Findings: The whole breast of the right breast, the axilla of the right breast and the retroareolar of the right breast were scanned. A complete US of all four quadrants of the breast, axilla, and retro-areolar region were reviewed. Postsurgical scar noted at the 10:00 position, 4 cm from the nipple. No solid or cystic masses are identified. No axillary lymphadenopathy. Overall Assessment: Known biopsy proven malignancy, BI-RAD 6 Management: Surgical Consultation of the left breast. Appropriate surgical and oncologic management for biopsy-proven left breast cancer. Results were given to the patient verbally at the time of exam. Results were given to the patient verbally at the time of exam. [facility], , 02/21/2024 8:12 AM. Electronically signed and approved by: Lilo Crowder M.D. Radiologist
== END | disposition home or self-care (01) ==
LOC: RADMAMWWP 06:53
PROVIDERS: ATTEND Surgery
CPT/HCPCS: 77061; 77065

== ENCOUNTER 2024-03-31 09:56 | Day surgery (SDC) | payer MEDICARE, OTHER ==
[~2024-03-31 09:56] MED LIST: fentaNYL (PF) 50 MCG/ML 2 ML AMP IV PRN
[2024-03-31] MEDS: IV FLUID CONTINUATION 1,000 ML IV ONE (10:22)
[2024-03-31] MEDS: LACTATED RINGERS 1,000 ML IV SCH (10:34)
[2024-03-31] MEDS: SODIUM BICARB 8.4% 10 ML VIAL (1 MEQ/ML) MISCELLANE ONE (11:46)
[2024-03-31] MEDS: LIDOCAINE 1% INJ 10MG/ML (20 ML MDV) SQ ONE (11:46)
[2024-03-31] MEDS: ACETAMINOPHEN TAB 500 MG TAB PO PRN (12:10)
[2024-03-31] MEDS: ONDANSETRON 4 MG/2 ML VIAL IVP ONE (12:12)
[2024-03-31] MEDS: HEPARIN SODIUM,PORCINE 5,000 UNIT/ML 1 ML VIAL SQ PRN (12:12)
[2024-03-31] MEDS: DEXAMETHASONE SOD PHOSPHATE 4 MG/ML 1 ML VIAL IV ONE (12:12)
[2024-03-31] MEDS ORDERED: PROPOFOL 10 MG/ML 20 ML VIAL IV ONE (13:15)
[2024-03-31] MEDS ORDERED: ePHEDrine 50 MG/ML 1 ML VIAL ONE (13:15)
[2024-03-31] MEDS ORDERED: SUCCINYLCHOLINE CHLORIDE 200 MG/10 ML VIAL IV ONE (13:15)
[2024-03-31] MEDS ORDERED: fentaNYL (PF) 50 MCG/ML 2 ML AMP ONE (13:15)
[2024-03-31] MEDS ORDERED: GLYCOPYRROLATE 0.2 MG/ML 2 ML VIAL ONE (13:15)
[2024-03-31] MEDS ORDERED: LIDOCAINE 1% INJ 10MG/ML (20 ML MDV) ONE (13:15)
[2024-03-31] MEDS: BUPIVACAINE (PF) 0.25% 30 ML VIAL SQ ONE (14:01)
--- NOTE | 2024-03-31 14:16 | P.NAPBC ---
NAPBC Queries - NAPBC Queries Was patient's case review presented at [facility] tumor board? If no, comment.: Yes Was patient's pathology reviewed at [facility]? If no, comment.: Yes Was breast conservation surgery offered? If no, comment.: Yes Was sentinel node biopsy offered? If no, comment.: Yes Was diagnosis confirmed by percutaneous core biopsy? If no, comment.: Yes Is patient mastectomy patient?: No Was a preop referral to reconstructive surgeon offered?: Yes Clinical Stage: 1
--- NOTE | 2024-03-31 14:19 | P.OP ---
Date of Procedure: 03/31/24 Procedure(s) Performed: PREOPERATIVE DIAGNOSIS: Left breast cancer POSTOPERATIVE DIAGNOSIS: Same PROCEDURE: Left breast wire localization lumpectomy SURGEON: Coby EBL: 5 cc ANESTHESIA: General COMPLICATIONS: None OPERATIVE PROCEDURE: Patient was placed on the operating room table in the supine position. The breast was prepped and draped in usual sterile fashion. The wire entrance site was then addressed. This was present at the 2:00 location. A curvilinear incision was made adjacent to the wire entrance site. I followed the wire down into the breast tissue. An adequate lumpectomy specimen then took place around the wire. Margins of 1.5-2 cm worth attempted to be achieved. The patient's cancer was palpable. The dissection took place very closely anteriorly just beneath the dermis. The anterior margin was painted later during the procedure however if the margin is positive would require excising the skin in that area. The specimen was then painted the appropriate 6 colors. Clips were used to identify the lumpectomy cavity. It should be noted that prior clips were noted from a previous biopsy deep in the breast close to the chest wall. The clip was confirmed to be within the lumpectomy specimen by radiology. The subcutaneous tissues were closed using 3- 0 Vicryl sutures. The skin was closed using a running 4-0 Monocryl stitch. Skin glue and sterile dressings was then applied. DISPOSITION: Stable to recovery room
[2024-03-31 14:20] VITALS: RESP 16; TEMP 97.1
[2024-03-31] MEDS: Acetaminophen-Codeine 300-30mg TAB PO STA (15:01)
[2024-03-31 15:12] VITALS: BP 125/79; PULSE 74
[2024-03-31] MEDS ORDERED: ACETAMINOPHEN TAB 325 MG TAB PO SCH (18:00)
[2024-04-02] MEDS ORDERED: MELOXICAM 7.5 MG TAB PO SCH (09:00)
--- NOTE | 2024-04-09 08:38 | MM ---
Pathology Description: Approach: Lateral to Medial Needle Type: 5 cm Kopan The needle localization procedure with wire placement for surgical excision was explained to the patient. Benefits, alternatives, and risks were discussed. An informed consent was then obtained. A timeout was performed. The overlying skin was prepped in usual sterile fashion. Lidocaine was used as anesthetic into the skin and subcutaneous tissue up to the level of area of concern. A 5 cm needle was used. It was placed using a lateral approach under mammographic guidance. Subsequent 90 degrees mammogram show the needle to be in satisfactory position relative to the targeted area. The wire was placed and the needle was withdrawn. The wire was fixed to patient's skin. Images were marked for surgeon. The patient tolerated the procedure well without any immediate complication. The patient was kept in the radiology department for short stay after the procedure and then taken to surgery for surgical excision. Specimen: Biopsy marker, targeted density and wire are identified in specimen mammogram. Impression: 1. Successful needle localization with wire placement and surgical excision of biopsy marker. [facility], Workstation: [id number], 03/31/2024 4:03 PM. Pathology Results: Result: Malignant, Invasive ductal carcinoma. Pathology and radiology were reviewed. Findings are concordant. LEFT BREAST, LUMPECTOMY: Invasive ductal carcinoma, Grade 1, with focal ductal carcinoma in situ (DCIS). See Surgical Pathology Cancer Case Summary and Comment. All margins negative for in situ and invasive carcinoma. Overall Assessment: Malignant Management: Diagnostic Mammogram of the left breast in 6 months. Surgical Consultation of the left breast. Electronically signed and approved by: Kirt Jeter D.O. Radiologis
== END 2024-03-31 15:32 | disposition home or self-care (01) ==
LOC: OR 09:56
PROVIDERS: ATTEND Surgery
DX: D05.12 Intraductal carcinoma in situ of left breast (principal); I10 Essential (primary) hypertension; E78.5 Hyperlipidemia, unspecified; E07.9 Disorder of thyroid, unspecified; M19.90 Unspecified osteoarthritis, unspecified site; F41.9 Anxiety disorder, unspecified; F32.A Depression, unspecified; K21.9 Gastro-esophageal reflux disease without esophagitis; Z85.3 Personal history of malignant neoplasm of breast; Z88.5 Allergy status to narcotic agent; Z79.890 Hormone replacement therapy; Z79.899 Other long term (current) drug therapy
CPT/HCPCS: 19301; 88307; 76098; 19281; C1819; J0330; J1644; J1100; J0690; J2405; J2003; J3010; J2704; J0665; J1596

== ENCOUNTER → 2024-05-27 | Outpatient (CLI) | payer MEDICARE, OTHER ==
--- NOTE | 2024-05-27 11:21 | XR ---
EXAMINATION TYPE: XR abdomen 2V DATE OF EXAM: 05/27/2024 10:56 AM COMPARISON: 06/19/2023 CLINICAL INDICATION: Female, 79 years old with history of R1084 GEN ABD PAIN; [facility] TECHNIQUE: Two views of the abdomen were obtained. FINDINGS: Moderate amount stool throughout the colon. The bowel gas pattern is nonspecific without di lated loops of small or large bowel. There is no evidence for organomegaly or pneumoperitoneum. The osseous structures are intact. No abnormal calcifications are present. Fecal material and gas are de monstrated throughout the colon and rectum. Multiple bilateral renal calculi.r measuring up to 14 mm in the left and 5 mm on the right. IMPRESSION: 1. Nonspecific bowel gas pattern without radiographic evidence for acute process. 2. Bilateral renal calculi. [facility], , 05/27/2024 11:19 AM
== END | disposition home or self-care (01) ==
LOC: RADXRYALE 10:41
PROVIDERS: ATTEND Internal Medicine
DX: N20.0 Calculus of kidney (principal)
CPT/HCPCS: 74019

== ENCOUNTER → 2024-07-10 | Outpatient (CLI) | payer MEDICARE, OTHER ==
--- NOTE | 2024-07-10 10:05 | XR ---
EXAMINATION TYPE: XR abdomen 2V DATE OF EXAM: 07/10/2024 9:49 AM COMPARISON: None. CLINICAL INDICATION: Female, 79 years old with history of R10.9 Abdominal discomfort, TECHNIQUE: Single view of the abdomen. FINDINGS: Small bowel demonstrates no evidence for dilatation or air fluid levels. Gas and fecal material is seen in non-distended colon. No convincing evidence for pneumoperitoneum. Multiple radiopaque calcific densities overlie the left kidney which may reflect underlying nephrolit hiasis. Postoperative changes left upper quadrant. The lung bases are clear. The osseous structures are intact. IMPRESSION: 1. Overall nonobstructive bowel gas pattern. [facility], , 07/10/2024 10:03 AM
== END | disposition home or self-care (01) ==
LOC: RADXRMAIN 09:26
PROVIDERS: ATTEND Internal Medicine
DX: R10.9 Unspecified abdominal pain (principal)
CPT/HCPCS: 74019

== ENCOUNTER → 2024-07-29 | Outpatient (CLI) | payer MEDICARE, OTHER ==
--- NOTE | 2024-07-29 12:14 | XR ---
EXAMINATION TYPE: XR foot complete LT DATE OF EXAM: 07/29/2024 CLINICAL INDICATION: Female, 79 years old with history of M79.672 PAIN IN LEFT FOOT, pain TECHNIQUE: Frontal, lateral, and oblique images of the left foot are obtained. COMPARISON: Prior left foot x-ray July 05, 2022 FINDINGS: Demineralization is redemonstrated. There is no acute fracture/dislocation evident in the left foot. Persistent moderate to severe narrowing and moderate spurring at the first metatarsophalan geal joint. Persistent flexion in varus positioning of the distal fourth and fifth toes. Persistent t alocalcaneal surgical change and ossific fusion. Moderate size inferior calcaneal spur redemonstrated . Mild to moderate hindfoot and midfoot spurring again seen. Overlying soft tissue is unremarkable. IMPRESSION: As above. No significant change from prior. [facility], , 07/29/2024 12:12 PM
== END | disposition home or self-care (01) ==
LOC: RADXRMAIN 11:48
PROVIDERS: ATTEND Internal Medicine
DX: M77.32 Calcaneal spur, left foot (principal); M19.072 Primary osteoarthritis, left ankle and foot

== ENCOUNTER 2024-09-29 12:59 | Emergency (ER) | payer MEDICARE, OTHER ==
--- NOTE | 2024-09-29 13:53 | ED ---
General Adult HPI - General Chief complaint: Recheck/Abnormal Lab/Rx Stated complaint: Medication RXN Time Seen by Provider: 09/29/24 13:31 Source: patient Mode of arrival: wheelchair Limitations: no limitations - History of Present Illness Initial comments: Dictation was produced using [employer] dictation software. please excuse any grammatical, word or spelling errors. Chief Complaint: 79-year-old female presents with anxiolytic medication discrepancy History of Present Illness: Patient is 79-year-old female presents to the emergency department for medication discrepancy. She was prescribed her usual alprazolam medication which is 1 mg. She states that she took 1 yesterday and felt like the pills were off. States that the label did not seem to be like her usual medications. States that her stool was orange. Patient otherwise has no other complaints. The ROS documented in this emergency department record has been reviewed and confirmed by me. Those systems with pertinent positive or negative responses have been documented in the HPI. All other systems are other negative and/or noncontributory. - Related Data Home Medications Medication Instructions Recorded Confirmed ALPRAZolam [Xanax] 1 mg PO BID 06/15/23 03/31/24 Atorvastatin [Lipitor] 40 mg PO HS 06/15/23 03/31/24 Cyanocobalamin [Vitamin B-12] 500 mcg PO DAILY 06/15/23 03/27/24 Ezetimibe [Zetia] 10 mg PO HS 06/15/23 03/31/24 Levothyroxine Sodium [Synthroid] 25 mcg PO DAILY 06/15/23 03/31/24 Losartan Potassium 50 mg PO DAILY 06/15/23 03/31/24 Venlafaxine HCl [Effexor] 37.5 mg PO QAM 06/15/23 03/31/24 atenoloL [Tenormin] 50 mg PO DAILY 06/15/23 03/31/24 Otc Nexium 1 tab PO DIRECTED PRN 03/27/24 03/27/24 atenoloL [Atenolol] 25 mg PO HS 03/27/24 03/31/24 Previous Rx's Medication Instructions Recorded Acetaminophen-Codeine 300-30mg 1 tab PO Q4H PRN 3 Days #6 tablet 03/31/24 [Tylenol w/codeine #3] ALPRAZolam [Xanax] 1 mg PO BID 3 Days #6 tab 09/29/24 Allergies Allergy/AdvReac Type Severity Reaction Status Date / Time morphine AdvReac Nausea & Verified 09/29/24 13:29 Vomiting Review of Systems ROS Statement: Those systems with pertinent positive or pertinent negative responses have been documented in the HPI. ROS Other: All systems not noted in ROS Statement are negative. Past Medical History Past Medical History: Cancer, Hyperlipidemia, Hypertension, Thyroid Disorder Additional Past Medical History / Comment(s): "smell disorder" (unknown name), cant tolerate string smells. Bilat Breast cancer, Right 1998, Radiation. Left 2012 ?, surgery done, no other treatment, pt declined tx History of Any Multi-Drug Resistant Organisms: None Reported Past Surgical History: Breast Surgery Additional Past Surgical History / Comment(s): "Blocked small intestine 2 years ago.", kidney stones removed 08/2023, multiple lithotripsy procedures. Bilat breast cancer lumpectomy. Past Anesthesia/Blood Transfusion Reactions: No Reported Reaction Additional Past Anesthesia/Blood Transfusion Reaction / Comment(s): heart stopped during kidney surgery- had kidney infection Past Psychological History: Anxiety, Depression Smoking Status: Former smoker - Past Family History Mother Family Medical History: No Reported History Father Family Medical History: Cancer, Myocardial Infarction ([place]) Additional Family Medical History / Comment(s): pancreatic cancer General Exam - General Exam Comments Initial Comments: General: Well-appearing, nontoxic, no acute distress. Head: Normocephalic, atraumatic Eyes: PERRLA, EOMI ENT: Airway patent Chest: Nonlabored breathing Skin: No visual rash, normal skin tone Neuro: Alert and oriented 3 Musculoskeletal: No gross abnormalities Limitations: no limitations Course Vital Signs 09/29/24 13:20 Temperature 98.1 F Pulse Rate 67 Respiratory 17 Rate Blood Pressure 153/82 O2 Sat by Pulse 99 Oximetry Medical Decision Making - Medical Decision Making Was pt. sent in by a medical professional or institution (, PA, EMERGENCY MEDICINE PHYSICIAN ASSISTANT, urgent care, hospital, or senior care...) When possible be specific @ -No Did you speak to anyone other than the patient for history (EMS, parent, family, police, friend...)? What history was obtained from this source @ -No Did you review nursing and triage notes (agree or disagree)? Why? @ -I reviewed and agree with nursing and triage notes Were old charts reviewed (outside hosp., previous admission, EMS record, old EKG, old radiological studies, urgent care reports/EKG's, senior care records)? Report findings @ -No old charts were reviewed Differential Diagnosis (chest pain, altered mental status, abdominal pain women, abdominal pain men, vaginal bleeding, musculoskeletal, weakness, fever, dyspnea, syncope, headache, dizziness, GI bleed, back pain, seizure, CVA, palpatations, mental health)? @ -Not applicable EKG interpreted by me (3pts min.). @ -None done X-rays interpreted by me (1pt min.). @ -None done CT interpreted by me (1pt min.). @ -None done U/S interpreted by me (1pt. min.). @ -None done What testing was considered but not performed or refused? (CT, X-rays, U/S, labs)? Why? @ -None What meds were considered but not given or refused? Why? @ -None Was smoking cessation discussed for >3mins.? @ -No Were there social determinants of health that impacted care today? How? (Homelessness, low income, unemployed, alcoholism, drug addiction, transportation, low edu. Level, literacy, decrease access to med. care, skilled nursing, rehab)? @ -No Was there de-escalation of care discussed even if they declined (Discuss DNR or withdrawal of care, Hospice)? DNR status @ -No What co-morbidities impacted this encounter? (DM, HTN, Smoking, COPD, CAD, Cancer, CVA, ARF, Chemo, Hep., AIDS, mental health diagnosis, sleep apnea, morbid obesity)? @ -None Was patient admitted / discharged? Hospital course, mention meds given and route, prescriptions, significant lab abnormalities, going to OR and other pertinent info. @ -79-year-old female concerned about her alprazolam prescription. Vital signs stable. Patient a little anxious. Physical examination otherwise benign. I did have hospital pharmacy technician review patient's medications and apparently it is Xanax however it is from a different manufacture according to medication index. Patient feels that she is having a reaction to the ones that she was recently prescribed which were from the mechanical systems control engineer [employer]. Patient given 2-day prescription for Xanax made by mechanical systems control engineer [employer] which she states is her usual medication Did you discuss the management of the patient with other professionals (professionals i.e. , PA, EMERGENCY MEDICINE PHYSICIAN ASSISTANT, lab, RT, psych nurse, social media assistant, sign erector, teacher, staff electronic warfare officer, patient case manager)? Give summary @ -No Was critical care preformed (if so, how long)? @ -No Undiagnosed new problem with uncertain prognosis? @ -No Drug Therapy requiring intensive monitoring for toxicity (Heparin, Nitro, Insulin, Cardizem)? @ -No Were any procedures done? @ -No Diagnosis/symptom? Acute, or Chronic, or Acute on Chronic? Uncomplicated (without systemic symptoms) or Complicated (systemic symptoms)? @ -Medication discrepancy Side effects of treatment? @ -No Exacerbation, Progression, or Severe Exacerbation? @ -No Poses a threat to life or bodily function? How? (Chest pain, [place], [place], pneumonia, PE, COPD, DKA, ARF, appy, cholecystitis, CVA, Diverticulitis, Homicidal, Suicidal, threat to staff... and all critical care pts) @ -No Disposition Clinical Impression: Encounter for medication refill Disposition: HOME SELF-CARE Condition: Fair Instructions (If sedation given, give patient instructions): Anxiety (ED) Prescriptions: ALPRAZolam [Xanax] 1 mg PO BID 3 Days #6 tab Is patient prescribed a controlled substance at d/c from ED?: No Referrals: Khushboo Mtz MD [Primary Care Provider] - 1-2 days Time of Disposition: 14:21
[2024-09-29 14:42] VITALS: BP 148/76; PULSE 62; RESP 18; TEMP 98
== END 2024-09-29 14:41 | disposition home or self-care (01) ==
LOC: EC 12:59
DX: Z76.0 Encounter for issue of repeat prescription (principal); Z87.891 Personal history of nicotine dependence; Z88.5 Allergy status to narcotic agent
CPT/HCPCS: 99281

== ENCOUNTER 2024-10-04 19:19 | Emergency (ER) | payer MEDICARE, OTHER ==
[2024-10-04] MEDS: DEXAMETHASONE SOD PHOSPHATE 10 MG/ML 1 ML VIAL IM STA (20:12)
--- NOTE | 2024-10-04 21:29 | ED ---
Allergic Reaction HPI - General Chief complaint: Allergic Reaction Stated complaint: Numb Legs/Allergic Reaction? Time Seen by Provider: 10/04/24 20:20 Source: patient, family, RN notes reviewed Mode of arrival: wheelchair - History of Present Illness Initial Comments: 79-year-old female presenting for dry mouth. States she believes she had an allergic reaction to her Flonase today. She was prescribed Flonase and an antihistamine by her PCP for upper respiratory symptoms. States she took the Flonase for the first time this morning as well as the antihistamine and shortly after began to experience dry mouth and difficulty swallowing. States she drank water and symptoms resolved. States after she took her nighttime medications, she experienced a dry mouth again and a brief episode of left lower extremity swelling that is now resolved. No difficulty breathing or swallowing. No lip or tongue swelling. No chest pain or shortness of breath. No vision changes or focal deficits. - Related Data Home Medications Medication Instructions Recorded Confirmed ALPRAZolam [Xanax] 1 mg PO BID 06/15/23 03/31/24 Atorvastatin [Lipitor] 40 mg PO HS 06/15/23 03/31/24 Cyanocobalamin [Vitamin B-12] 500 mcg PO DAILY 06/15/23 03/27/24 Ezetimibe [Zetia] 10 mg PO HS 06/15/23 03/31/24 Levothyroxine Sodium [Synthroid] 25 mcg PO DAILY 06/15/23 03/31/24 Losartan Potassium 50 mg PO DAILY 06/15/23 03/31/24 Venlafaxine HCl [Effexor] 37.5 mg PO QAM 06/15/23 03/31/24 atenoloL [Tenormin] 50 mg PO DAILY 06/15/23 03/31/24 Otc Nexium 1 tab PO DIRECTED PRN 03/27/24 03/27/24 atenoloL [Atenolol] 25 mg PO HS 03/27/24 03/31/24 Previous Rx's Medication Instructions Recorded Acetaminophen-Codeine 300-30mg 1 tab PO Q4H PRN 3 Days #6 tablet 03/31/24 [Tylenol w/codeine #3] ALPRAZolam [Xanax] 1 mg PO BID 3 Days #6 tab 09/29/24 Allergies Allergy/AdvReac Type Severity Reaction Status Date / Time morphine AdvReac Nausea & Verified 09/29/24 13:29 Vomiting Review of Systems ROS Statement: Those systems with pertinent positive or pertinent negative responses have been documented in the HPI. ROS Other: All systems not noted in ROS Statement are negative. Past Medical History Past Medical History: Cancer, Hyperlipidemia, Hypertension, Thyroid Disorder Additional Past Medical History / Comment(s): "smell disorder" (unknown name), cant tolerate string smells. Bilat Breast cancer, Right 1998, Radiation. Left 2012 ?, surgery done, no other treatment, pt declined tx History of Any Multi-Drug Resistant Organisms: None Reported Past Surgical History: Breast Surgery Additional Past Surgical History / Comment(s): "Blocked small intestine 2 years ago.", kidney stones removed 08/2023, multiple lithotripsy procedures. Bilat breast cancer lumpectomy. Past Anesthesia/Blood Transfusion Reactions: No Reported Reaction Additional Past Anesthesia/Blood Transfusion Reaction / Comment(s): heart stopped during kidney surgery- had kidney infection Past Psychological History: Anxiety, Depression Smoking Status: Former smoker - Past Family History Mother Family Medical History: No Reported History Father Family Medical History: Cancer, Myocardial Infarction ([place]) Additional Family Medical History / Comment(s): pancreatic cancer General Exam General appearance: alert, in no apparent distress Head exam: Present: atraumatic, normocephalic, normal inspection Eye exam: Present: normal appearance, PERRL, EOMI. Absent: scleral icterus, conjunctival injection, periorbital swelling ENT exam: Present: normal exam, normal oropharynx (No lip or tongue swelling), mucous membranes moist Neck exam: Present: normal inspection. Absent: tenderness, meningismus, lymphadenopathy Respiratory exam: Present: normal lung sounds bilaterally. Absent: respiratory distress, wheezes, rales, rhonchi, stridor, accessory muscle use Cardiovascular Exam: Present: regular rate, normal rhythm, normal heart sounds. Absent: systolic murmur, diastolic murmur, rubs, gallop, clicks GI/Abdominal exam: Present: soft, normal bowel sounds. Absent: distended, tenderness, guarding, rebound, rigid Neurological exam: Present: alert, oriented X3, CN II-XII intact Psychiatric exam: Present: normal affect, normal mood Skin exam: Present: warm, dry, intact, normal color. Absent: rash Course Vital Signs 10/04/24 10/04/24 10/04/24 19:35 19:57 21:37 Temperature 98.1 F 97.9 F Pulse Rate 81 70 Respiratory 20 20 16 Rate Blood Pressure 115/83 136/76 O2 Sat by Pulse 96 98 Oximetry Medical Decision Making - Medical Decision Making Was pt. sent in by a medical professional or institution (GILMER Yoder, SOFTWARE CONFIGURATION ENGINEER, urgent care, hospital, or longterm...) When possible be specific @ -No Did you speak to anyone other than the patient for history (EMS, parent, family, police, friend...)? What history was obtained from this source @ -No Did you review nursing and triage notes (agree or disagree)? Why? @ -I reviewed and agree with nursing and triage notes Were old charts reviewed (outside hosp., previous admission, EMS record, old EKG, old radiological studies, urgent care reports/EKG's, longterm records)? Report findings @ -No old charts were reviewed Differential Diagnosis (chest pain, altered mental status, abdominal pain women, abdominal pain men, vaginal bleeding, weakness, fever, dyspnea, syncope, headache, dizziness, GI bleed, back pain, seizure, CVA, palpatations, mental health, musculoskeletal)? @ -Allergic reaction, medication side effect, angioedema, anaphylaxis EKG interpreted by me (3pts min.). @ -None X-rays interpreted by me (1pt min.). @ -None done CT interpreted by me (1pt min.). @ -None done U/S interpreted by me (1pt. min.). @ -None done What testing was considered but not performed or refused? (CT, X-rays, U/S, labs)? Why? @ -None What meds were considered but not given or refused? Why? @ -None Did you discuss the management of the patient with other professionals (professionals i.e. GILMER Yoder, SOFTWARE CONFIGURATION ENGINEER, lab, RT, psych nurse, protective services social worker, automotive glass technician, teacher, investment officer, case planner)? Give summary @ -No Was smoking cessation discussed for >3mins.? @ -No Was critical care preformed (if so, how long)? @ -No Were there social determinants of health that impacted care today? How? (Homelessness, low income, unemployed, alcoholism, drug addiction, transportation, low edu. Level, literacy, decrease access to med. care, [facility], rehab)? @ -No Was there de-escalation of care discussed even if they declined (Discuss DNR or withdrawal of care, Hospice)? DNR status @ -No What co-morbidities impacted this encounter? (DM, HTN, Smoking, COPD, CAD, Cancer, CVA, ARF, Chemo, Hep., AIDS, mental health diagnosis, sleep apnea, morbid obesity)? @ -None Was patient admitted / discharged? Hospital course, mention meds given and route, prescriptions, significant lab abnormalities, going to OR and other pertinent info. @ -Discharge. 79-year-old female presenting for dry mouth. Patient believes she had an allergic reaction after taking Flonase and antihistamine. Symptoms have since improved. Vital signs are within acceptable limits. No difficulty breathing or swallowing. No lip or tongue swelling. Patient is well-appearing, no acute distress. Provided with dose of steroid. Patient was observed in the ER for approximately 2 hours and is asymptomatic at time of reevaluation. Patient can be safely discharged home with strict return precautions and close outpatient follow-up. Patient is agreeable to plan. Case was discussed with my ED attending Dr. Singh. Undiagnosed new problem with uncertain prognosis? @ -No Drug Therapy requiring intensive monitoring for toxicity (Heparin, Nitro, Insulin, Cardizem)? @ -No Were any procedures done? @ -No Diagnosis/symptom? @ -Allergic reaction Acute, or Chronic, or Acute on Chronic? @ -Acute Uncomplicated (without systemic symptoms) or Complicated (systemic symptoms)? @ -Complicated Side effects of treatment? @ -No Exacerbation, Progression, or Severe Exacerbation? @ -No Poses a threat to life or bodily function? How? (Chest pain, [place], [place], pneumonia, PE, COPD, DKA, ARF, appy, cholecystitis, CVA, Diverticulitis, Homicidal, Suicidal, threat to staff... and all critical care pts) @ -Unlikely at this time Disposition Clinical Impression: Allergic reaction Disposition: HOME SELF-CARE Condition: Stable Additional Instructions: Discontinue Flonase and antihistamines as I believe it is causing your dry throat. Please return to the Emergency Department if symptoms worsen or any other concerns. Is patient prescribed a controlled substance at d/c from ED?: No Referrals: Khushboo Mtz MD [Primary Care Provider] - 1-2 days Time of Disposition: 21:29
[2024-10-04 21:46] VITALS: BP 136/76; PULSE 70; RESP 16; TEMP 97.9
== END 2024-10-04 21:37 | disposition home or self-care (01) ==
LOC: EC 19:19
DX: R20.0 Anesthesia of skin (principal); M79.89 Other specified soft tissue disorders; R68.2 Dry mouth, unspecified; T43.655A Adverse effect of methamphetamines, initial encounter; Z87.891 Personal history of nicotine dependence; Z88.5 Allergy status to narcotic agent
CPT/HCPCS: 99283 ×2; 96372 ×2; J1100

== ENCOUNTER 2024-10-05 19:46 | Emergency (ER) | payer MEDICARE, OTHER ==
[2024-10-05 19:53] VITALS: RESP 18; TEMP 97.5
--- NOTE | 2024-10-05 20:24 | ED ---
Allergic Reaction HPI - General Chief complaint: Allergic Reaction Stated complaint: ears ringing, dizziness Time Seen by Provider: 10/05/24 20:02 Source: patient, RN notes reviewed Mode of arrival: ambulatory Limitations: no limitations - History of Present Illness Initial Comments: This is an 79-year-old female with history of "smell disorder" presenting for reaction/edema following exposure to an odor earlier today. Patient states her son and family was over at her house today today for Father's Day when she was exposed to an odor/fragrance as they were leaving which caused the reaction that she claims is causing swelling in her legs, abdomen and left breast starting today. Patient endorses use of Xyzal with no relief. Also endorses dry throat and left wrist pain when holding a cold water bottle. Patient also expresses concern of her Xanax tablets having a different number on them than she is accustomed to. Denies swelling of her lips, tongue, throat, dyspnea/SOB, chest pain, rash, nausea/vomiting, dizziness. MD Complaint: allergic reaction Onset/Timin -: days(s) Exposure: other (Powder/fragrance) Symptoms: other (Lower extremity and torso edema, dry mouth/throat) Treatment Prior to Arrival: other (Xyzal) Previous Allergy History: prior ED visit(s) - Related Data Home Medications Medication Instructions Recorded Confirmed ALPRAZolam [Xanax] 1 mg PO BID 06/15/23 03/31/24 Atorvastatin [Lipitor] 40 mg PO HS 06/15/23 03/31/24 Cyanocobalamin [Vitamin B-12] 500 mcg PO DAILY 06/15/23 03/27/24 Ezetimibe [Zetia] 10 mg PO HS 06/15/23 03/31/24 Levothyroxine Sodium [Synthroid] 25 mcg PO DAILY 06/15/23 03/31/24 Losartan Potassium 50 mg PO DAILY 06/15/23 03/31/24 Venlafaxine HCl [Effexor] 37.5 mg PO QAM 06/15/23 03/31/24 atenoloL [Tenormin] 50 mg PO DAILY 06/15/23 03/31/24 Otc Nexium 1 tab PO DIRECTED PRN 03/27/24 03/27/24 atenoloL [Atenolol] 25 mg PO HS 03/27/24 03/31/24 Previous Rx's Medication Instructions Recorded Acetaminophen-Codeine 300-30mg 1 tab PO Q4H PRN 3 Days #6 tablet 03/31/24 [Tylenol w/codeine #3] ALPRAZolam [Xanax] 1 mg PO BID 3 Days #6 tab 09/29/24 Allergies Allergy/AdvReac Type Severity Reaction Status Date / Time morphine AdvReac Nausea & Verified 10/05/24 19:53 Vomiting Review of Systems ROS Statement: Those systems with pertinent positive or pertinent negative responses have been documented in the HPI. ROS Other: All systems not noted in ROS Statement are negative. Past Medical History Past Medical History: Cancer, Hyperlipidemia, Hypertension, Thyroid Disorder Additional Past Medical History / Comment(s): "smell disorder" (unknown name), cant tolerate string smells. Bilat Breast cancer, Right 1998, Radiation. Left 2012 ?, surgery done, no other treatment, pt declined tx History of Any Multi-Drug Resistant Organisms: None Reported Past Surgical History: Breast Surgery Additional Past Surgical History / Comment(s): "Blocked small intestine 2 years ago.", kidney stones removed 08/2023, multiple lithotripsy procedures. Bilat breast cancer lumpectomy. Past Anesthesia/Blood Transfusion Reactions: No Reported Reaction Additional Past Anesthesia/Blood Transfusion Reaction / Comment(s): heart stopped during kidney surgery- had kidney infection Past Psychological History: Anxiety, Depression Smoking Status: Former smoker Past Alcohol Use History: None Reported Past Drug Use History: None Reported - Past Family History Mother Family Medical History: No Reported History Father Family Medical History: Cancer, Myocardial Infarction ([place]) Additional Family Medical History / Comment(s): pancreatic cancer General Exam Limitations: no limitations General appearance: alert, anxious (Patient appears pressured and anxious) Head exam: Present: atraumatic, normocephalic, normal inspection Eye exam: Present: normal appearance, PERRL, EOMI. Absent: scleral icterus, conjunctival injection, periorbital swelling ENT exam: Present: normal oropharynx (Negative oropharyngeal or glossal edema), mucous membranes dry, TM's normal bilaterally (Positive bilateral TM opacity without bulging and air-fluid levels), other Neck exam: Present: normal inspection. Absent: tenderness, meningismus, lymphadenopathy Respiratory exam: Present: normal lung sounds bilaterally. Absent: respiratory distress, wheezes, rales, rhonchi, stridor, accessory muscle use, decreased breath sounds, prolonged expiratory Cardiovascular Exam: Present: regular rate, normal rhythm, normal heart sounds. Absent: systolic murmur, diastolic murmur, rubs, gallop, clicks GI/Abdominal exam: Present: soft, normal bowel sounds. Absent: distended, tenderness, guarding, rebound, rigid Extremities exam: Present: normal inspection, full ROM, normal capillary refill, pedal edema (Positive BLE pitting edema, left worse than right.), other (BLE distal neurovascular and motor function intact. Dorsalis pedis pulse +2). Absent: tenderness, joint swelling, calf tenderness Back exam: Present: normal inspection Neurological exam: Present: alert, oriented X3, CN II-XII intact Psychiatric exam: Present: normal affect, anxious Skin exam: Present: warm, dry, intact, normal color. Absent: rash Course Vital Signs 10/05/24 10/05/24 19:47 21:00 Temperature 97.5 F L Pulse Rate 77 82 Respiratory 18 18 Rate Blood Pressure 151/88 144/82 O2 Sat by Pulse 100 96 Oximetry Medical Decision Making - Medical Decision Making Was pt. sent in by a medical professional or institution (, PA, SUB ARC OPERATOR, urgent care, hospital, or correction...) When possible be specific @ -No Did you speak to anyone other than the patient for history (EMS, parent, family, police, friend...)? What history was obtained from this source @ -No Did you review nursing and triage notes (agree or disagree)? Why? @ -I reviewed and agree with nursing and triage notes Were old charts reviewed (outside hosp., previous admission, EMS record, old EKG, old radiological studies, urgent care reports/EKG's, correction records)? Report findings @ -Chart from ER visit on 10/04/2024 reviewed, indicating patient being seen due to suspected reaction to Flonase nasal spray, being provided IM Decadron prior to discharge. Differential Diagnosis (chest pain, altered mental status, abdominal pain women, abdominal pain men, vaginal bleeding, weakness, fever, dyspnea, syncope, headache, dizziness, GI bleed, back pain, seizure, CVA, palpatations, mental health, musculoskeletal)? @ -Differential Dyspnea: Coronary syndrome, arrhythmia, tamponade, asthma, COPD, pulmonary embolism, pneumonia, pneumothorax, pulmonary effusion, anaphylaxis, diabetic ketoacidosis, flailed chest, pulmonary contusion, diaphragmatic rupture, anemia, neuromuscular, this is not meant to be an all-inclusive list. EKG interpreted by me (3pts min.). @ -Not done X-rays interpreted by me (1pt min.). @ -None done CT interpreted by me (1pt min.). @ -None done U/S interpreted by me (1pt. min.). @ -None done What testing was considered but not performed or refused? (CT, X-rays, U/S, labs)? Why? @ -None What meds were considered but not given or refused? Why? @ -Patient offered diazepam for anxiety but declined. Did you discuss the management of the patient with other professionals (professionals i.e. , PA, SUB ARC OPERATOR, lab, RT, psych nurse, social work associate, internal affairs commander, teacher, commercial escrow officer, trimming caser)? Give summary @ -No Was smoking cessation discussed for >3mins.? @ -No Was critical care preformed (if so, how long)? @ -No Were there social determinants of health that impacted care today? How? (Homelessness, low income, unemployed, alcoholism, drug addiction, transportation, low edu. Level, literacy, decrease access to med. care, halfway, rehab)? @ -No Was there de-escalation of care discussed even if they declined (Discuss DNR or withdrawal of care, Hospice)? DNR status @ -No What co-morbidities impacted this encounter? (DM, HTN, Smoking, COPD, CAD, Cancer, CVA, ARF, Chemo, Hep., AIDS, mental health diagnosis, sleep apnea, morbid obesity)? @ -None Was patient admitted / discharged? Hospital course, mention meds given and route, prescriptions, significant lab abnormalities, going to OR and other per tinent info. @ -Patient provided IM Decadron. Advised follow-up with PCP for ongoing management of edema and fragrance reactions. Discussed patient with Dr. Singh. Undiagnosed new problem with uncertain prognosis? @ -No Drug Therapy requiring intensive monitoring for toxicity (Heparin, Nitro, Insulin, Cardizem)? @ -No Were any procedures done? @ -No Diagnosis/symptom? @ -Reaction to fragrance, anxiety Acute, or Chronic, or Acute on Chronic? @ -Acute Uncomplicated (without systemic symptoms) or Complicated (systemic symptoms)? @ -Uncomplicated Side effects of treatment? @ -No Exacerbation, Progression, or Severe Exacerbation? @ -No Poses a threat to life or bodily function? How? (Chest pain, [place], [place], pneumonia, PE, COPD, DKA, ARF, appy, cholecystitis, CVA, Diverticulitis, Homicidal, Juliette cidal, threat to staff... and all critical care pts) @ -No Disposition Clinical Impression: Allergic reaction, Anxiety Disposition: HOME SELF-CARE Condition: Fair Instructions (If sedation given, give patient instructions): Allergies (ED) Additional Instructions: Follow-up with PCP for ongoing evaluation management of allergic reactions and swelling. Is patient prescribed a controlled substance at d/c from ED?: No Referrals: Khushboo Mtz MD [Primary Care Provider] - 1-2 days Time of Disposition: 20:24
[2024-10-05] MEDS: DEXAMETHASONE SOD PHOSPHATE 10 MG/ML 1 ML VIAL IM STA (20:48)
[2024-10-05 21:02] VITALS: BP 144/82; PULSE 82
== END 2024-10-05 21:00 | disposition home or self-care (01) ==
LOC: EC 19:46
DX: T78.49XA Other allergy, initial encounter (principal); F41.9 Anxiety disorder, unspecified; Z87.891 Personal history of nicotine dependence; Z88.5 Allergy status to narcotic agent
CPT/HCPCS: 99282; 96372; J1100

== ENCOUNTER 2024-10-07 01:46 | Emergency (ER) | payer MEDICARE, OTHER ==
[2024-10-07] MEDS: SODIUM CHLORIDE 0.9% 1,000 ML IV ONE (02:49)
[2024-10-07] MEDS: ONDANSETRON 4 MG/2 ML VIAL IVP STA (02:52)
--- NOTE | 2024-10-07 03:21 | ED ---
Abdominal Pain HPI - General Chief Complaint: Abdominal Pain Stated Complaint: pain in rib cage, constipation Time Seen by Provider: 10/07/24 01:55 Source: patient Mode of arrival: ambulatory Limitations: no limitations - History of Present Illness Initial Comments: 79-year-old female presenting with chief complaint of abdominal pain. She states that it started this evening after eating dinner. She reports that she has not had a bowel movement in over a week. States that she is having pain in her upper abdomen underneath her ribs. She reports that this feels similar to having a previous "blockage". She denies nausea or vomiting but states that her mouth feels very dry and her tongue is burning. She denies any chest pain or difficulty breathing. No fever or chills. No urinary symptoms. She is still passing gas. She was able to eat soup tonight. - Related Data Home Medications Medication Instructions Recorded Confirmed ALPRAZolam [Xanax] 1 mg PO BID 06/15/23 03/31/24 Atorvastatin [Lipitor] 40 mg PO HS 06/15/23 03/31/24 Cyanocobalamin [Vitamin B-12] 500 mcg PO DAILY 06/15/23 03/27/24 Ezetimibe [Zetia] 10 mg PO HS 06/15/23 03/31/24 Levothyroxine Sodium [Synthroid] 25 mcg PO DAILY 06/15/23 03/31/24 Losartan Potassium 50 mg PO DAILY 06/15/23 03/31/24 Venlafaxine HCl [Effexor] 37.5 mg PO QAM 06/15/23 03/31/24 atenoloL [Tenormin] 50 mg PO DAILY 06/15/23 03/31/24 Otc Nexium 1 tab PO DIRECTED PRN 03/27/24 03/27/24 atenoloL [Atenolol] 25 mg PO HS 03/27/24 03/31/24 Previous Rx's Medication Instructions Recorded Acetaminophen-Codeine 300-30mg 1 tab PO Q4H PRN 3 Days #6 tablet 03/31/24 [Tylenol w/codeine #3] ALPRAZolam [Xanax] 1 mg PO BID 3 Days #6 tab 09/29/24 Cephalexin [Keflex] 500 mg PO Q6HR #40 cap 10/08/24 Allergies Allergy/AdvReac Type Severity Reaction Status Date / Time morphine AdvReac Nausea & Verified 10/08/24 13:22 Vomiting Review of Systems ROS Statement: Those systems with pertinent positive or pertinent negative responses have been documented in the HPI. ROS Other: All systems not noted in ROS Statement are negative. Past Medical History Past Medical History: Cancer, Hyperlipidemia, Hypertension, Thyroid Disorder Additional Past Medical History / Comment(s): "smell disorder" (unknown name), cant tolerate string smells. Bilat Breast cancer, Right 1998, Radiation. Left 2012 ?, surgery done, no other treatment, pt declined tx History of Any Multi-Drug Resistant Organisms: None Reported Past Surgical History: Breast Surgery Additional Past Surgical History / Comment(s): "Blocked small intestine 2 years ago.", kidney stones removed 08/2023, multiple lithotripsy procedures. Bilat breast cancer lumpectomy. Past Anesthesia/Blood Transfusion Reactions: No Reported Reaction Additional Past Anesthesia/Blood Transfusion Reaction / Comment(s): heart stopped during kidney surgery- had kidney infection Past Psychological History: Anxiety, Depression Smoking Status: Former smoker Past Alcohol Use History: None Reported Past Drug Use History: None Reported - Past Family History Mother Family Medical History: No Reported History Father Family Medical History: Cancer, Myocardial Infarction ([place]) Additional Family Medical History / Comment(s): pancreatic cancer General Exam Limitations: no limitations General appearance: alert, in no apparent distress Head exam: Present: atraumatic, normocephalic, normal inspection Eye exam: Present: normal appearance, EOMI. Absent: periorbital swelling Neck exam: Present: normal inspection. Absent: meningismus Respiratory exam: Present: normal lung sounds bilaterally. Absent: respiratory distress, wheezes, rales, rhonchi, stridor Cardiovascular Exam: Present: regular rate, normal rhythm, normal heart sounds. Absent: systolic murmur, diastolic murmur, rubs, gallop, clicks GI/Abdominal exam: Present: soft. Absent: distended, tenderness, guarding, rebound, rigid Neurological exam: Present: alert, oriented X3 Psychiatric exam: Present: normal affect, normal mood Skin exam: Present: warm, dry, normal color Course Vital Signs 10/07/24 10/07/24 01:47 04:00 Temperature 98.3 F 98.1 F Pulse Rate 64 59 L Respiratory 18 20 Rate Blood Pressure 143/82 143/77 O2 Sat by Pulse 99 98 Oximetry Medical Decision Making - Medical Decision Making Was pt. sent in by a medical professional or institution (GILMER Yoder, BODY BUILDER, urgent care, hospital, or jail...) When possible be specific @ -No Did you speak to anyone other than the patient for history (EMS, parent, family, police, friend...)? What history was obtained from this source @ -No Did you review nursing and triage notes (agree or disagree)? Why? @ -I reviewed and agree with nursing and triage notes Were old charts reviewed (outside hosp., previous admission, EMS record, old EKG, old radiological studies, urgent care reports/EKG's, jail records)? Report findings @ -No old charts were reviewed Differential Diagnosis (chest pain, altered mental status, abdominal pain women, abdominal pain men, vaginal bleeding, weakness, fever, dyspnea, syncope, headache, dizziness, GI bleed, back pain, seizure, CVA, palpatations, mental health, musculoskeletal)? @ -MDM Differential Abdominal Pain Women: Appendicitis, Cholecystitis, diverticulosis, ischemic bowel, pancreatitis, hepatitis, UTI, gastroenteritis, AAA, incarcerated hernia, bowel obstruction, constipation, inflammatory bowel, hepatitis, peptic ulcer disease, splenic infarction, perforated viscus, vulvitis, ovarian torsion, PID, kidney stone, placenta abruption... This is not meant to be an all-inclusive list EKG interpreted by me (3pts min.). @ -As above X-rays interpreted by me (1pt min.). @ -KUB shows nonspecific nonobstructive bowel gas pattern. No significant stool burden. No pneumoperitoneum. Progressive scattered calcifications presumed throughout the left kidney CT interpreted by me (1pt min.). @ -None done U/S interpreted by me (1pt. min.). @ -None done What testing was considered but not performed or refused? (CT, X-rays, U/S, labs)? Why? @ -None What meds were considered but not given or refused? Why? @ -Patient offered an enema, patient refused Did you discuss the management of the patient with other professionals (professionals i.e. GILMER Yoder, BODY BUILDER, lab, RT, psych nurse, addiction social worker, beater dumper, teacher, immigration services officer, case management specialist)? Give summary @ -No Was smoking cessation discussed for >3mins.? @ -No Was critical care preformed (if so, how long)? @ -No Were there social determinants of health that impacted care today? How? (Homelessness, low income, unemployed, alcoholism, drug addiction, transportation, low edu. Level, literacy, decrease access to med. care, nursing home, rehab)? @ -No Was there de-escalation of care discussed even if they declined (Discuss DNR or withdrawal of care, Hospice)? DNR status @ -No What co-morbidities impacted this encounter? (DM, HTN, Smoking, COPD, CAD, Cancer, CVA, ARF, Chemo, Hep., AIDS, mental health diagnosis, sleep apnea, mo rbid obesity)? @ -None Was patient admitted / discharged? Hospital course, mention meds given and route, prescriptions, significant lab abnormalities, going to OR and other pertinent info. @ -79-year-old female presenting with chief complaint of abdominal discomfort. Patient has not had a bowel movement in over 1 week. No nausea or vomiting. KUB x-ray was obtained which shows no obstructive pattern. Patient was offered an enema, the patient refused and states that she wants to leave at this time. Vital signs are stable and patient is showing no signs of distress. Discharged. Follow-up with PCP. Report back to ER with any new or worsening symptoms. Discussed return parameters and answered all questions. Patient conveyed verbal understanding and agreed to the plan. I discussed this case in detail with my attending Dr. Avalos Undiagnosed new problem with uncertain prognosis? @ -No Drug Therapy requiring intensive monitoring for toxicity (Heparin, Nitro, Insulin, Cardizem)? @ -No Were any procedures done? @ -No Diagnosis/symptom? @ -constipation Acute, or Chronic, or Acute on Chronic? @ -Acute Uncomplicated (without systemic symptoms) or Complicated (systemic symptoms)? @ -Uncomplicated Side effects of treatment? @ -No Exacerbation, Progression, or Severe Exacerbation? @ -No Disposition Clinical Impression: Constipation Disposition: HOME SELF-CARE Condition: Good Instructions (If sedation given, give patient instructions): Constipation (ED), High Fiber Diet (ED) Additional Instructions: Follow-up with PCP. Report back to ER with any new or worsening symptoms. Is patient prescribed a controlled substance at d/c from ED?: No Referrals: Khushboo Mtz MD [Primary Care Provider] - 1-2 days Time of Disposition: 04:16
[2024-10-07] MEDS: HYDROmorphone 1 MG/ML 1 ML SYRINGE IVP STA (04:19)
[2024-10-07 04:38] VITALS: BP 143/77; PULSE 59; RESP 20; TEMP 98.1
--- NOTE | 2024-10-07 04:55 | XR ---
EXAM: XR Abdomen, 1 View CLINICAL HISTORY: Abdominal pain TECHNIQUE: Frontal upright e view of the abdomen/pelvis. COMPARISON: Abdomen two views dated 07/10/2024 FINDINGS: Lower thorax: Stable surgical clips in the presumed soft tissues of the left breast overlying the left upper abdomen. Intraperitoneal space: No pneumoperitoneum underlying the hemidiaphragms. Gastrointestinal tract: Unremarkable. No dilation. Organs: Scattered calcifications overlying the left renal contour. Bones/joints: Unremarkable. No acute fracture. Other findings: No significant stool burden. IMPRESSION: 1. Nonspecific, nonobstructive bowel gas pattern. No significant stool burden. No pneumoperitoneum. 2. Progressive scattered calcifications presumed throughout the left kidney.
== END 2024-10-07 04:38 | disposition home or self-care (01) ==
LOC: EC 01:46
DX: K59.00 Constipation, unspecified (principal); Z88.5 Allergy status to narcotic agent; Z87.891 Personal history of nicotine dependence
CPT/HCPCS: 93005; 74018; 99284; 96374; 96361; J2405

== ENCOUNTER 2024-10-08 13:16 | Emergency (ER) | payer MEDICARE, OTHER ==
--- NOTE | 2024-10-08 14:33 | ED ---
General Adult HPI - General Chief complaint: Recheck/Abnormal Lab/Rx Stated complaint: trouble swallowing, JIMMIE Time Seen by Provider: 10/08/24 13:22 Source: patient, RN notes reviewed Mode of arrival: wheelchair Limitations: no limitations - History of Present Illness Initial comments: 79-year-old female presenting to emergency department with complaints. She believes that she may be having an allergic reaction to the medication Xanax that she has been on for multiple years. She states that she spoke to her primary care provider where she requested that she would like to be weaned off this medication. She was concerned that this morning she felt like she was having a hard time breathing, her body was swelling and she called her primary care provider's office. They instructed her to take the Xanax that she normally does and however she has presented to the emergency department here. Patient is also been complaining of flank pain. Patient denies however lip swelling, urticaria. States that she has also been taking a other new anxiety medication and thinks that this may be causing a allergic reaction as well. - Related Data Home Medications Medication Instructions Recorded Confirmed ALPRAZolam [Xanax] 1 mg PO BID 06/15/23 03/31/24 Atorvastatin [Lipitor] 40 mg PO HS 06/15/23 03/31/24 Cyanocobalamin [Vitamin B-12] 500 mcg PO DAILY 06/15/23 03/27/24 Ezetimibe [Zetia] 10 mg PO HS 06/15/23 03/31/24 Levothyroxine Sodium [Synthroid] 25 mcg PO DAILY 06/15/23 03/31/24 Losartan Potassium 50 mg PO DAILY 06/15/23 03/31/24 Venlafaxine HCl [Effexor] 37.5 mg PO QAM 06/15/23 03/31/24 atenoloL [Tenormin] 50 mg PO DAILY 06/15/23 03/31/24 Otc Nexium 1 tab PO DIRECTED PRN 03/27/24 03/27/24 atenoloL [Atenolol] 25 mg PO HS 03/27/24 03/31/24 Previous Rx's Medication Instructions Recorded Acetaminophen-Codeine 300-30mg 1 tab PO Q4H PRN 3 Days #6 tablet 03/31/24 [Tylenol w/codeine #3] ALPRAZolam [Xanax] 1 mg PO BID 3 Days #6 tab 09/29/24 Cephalexin [Keflex] 500 mg PO Q6HR #40 cap 10/08/24 Allergies Allergy/AdvReac Type Severity Reaction Status Date / Time morphine AdvReac Nausea & Verified 10/08/24 13:22 Vomiting Review of Systems ROS Statement: Those systems with pertinent positive or pertinent negative responses have been documented in the HPI. ROS Other: All systems not noted in ROS Statement are negative. Past Medical History Past Medical History: Cancer, Hyperlipidemia, Hypertension, Thyroid Disorder Additional Past Medical History / Comment(s): "smell disorder" (unknown name), cant tolerate string smells. Bilat Breast cancer, Right 1998, Radiation. Left 2012 ?, surgery done, no other treatment, pt declined tx History of Any Multi-Drug Resistant Organisms: None Reported Past Surgical History: Breast Surgery Additional Past Surgical History / Comment(s): "Blocked small intestine 2 years ago.", kidney stones removed 08/2023, multiple lithotripsy procedures. Bilat breast cancer lumpectomy. Past Anesthesia/Blood Transfusion Reactions: No Reported Reaction Additional Past Anesthesia/Blood Transfusion Reaction / Comment(s): heart stopped during kidney surgery- had kidney infection Past Psychological History: Anxiety, Depression Smoking Status: Former smoker Past Alcohol Use History: None Reported Past Drug Use History: None Reported - Past Family History Mother Family Medical History: No Reported History Father Family Medical History: Cancer, Myocardial Infarction ([place]) Additional Family Medical History / Comment(s): pancreatic cancer General Exam Limitations: no limitations General appearance: alert, in no apparent distress ENT exam: Present: normal exam, mucous membranes moist Neck exam: Present: normal inspection. Absent: tenderness, meningismus, lymphadenopathy Respiratory exam: Present: normal lung sounds bilaterally. Absent: respiratory distress, wheezes, rales, rhonchi, stridor Cardiovascular Exam: Present: regular rate, normal rhythm, normal heart sounds. Absent: systolic murmur, diastolic murmur, rubs, gallop, clicks GI/Abdominal exam: Present: soft, normal bowel sounds. Absent: distended, tenderness, guarding, rebound, rigid Psychiatric exam: Present: anxious. Absent: flat affect, homicidal ideation, suicidal ideation Course Vital Signs 10/08/24 10/08/24 10/08/24 13:17 13:21 15:53 Temperature 98.3 F 98.5 F Pulse Rate 69 66 Respiratory 17 20 19 Rate Blood Pressure 153/74 126/73 O2 Sat by Pulse 97 97 Oximetry Medical Decision Making - Medical Decision Making Was pt. sent in by a medical professional or institution (GILMER Yoder, IMPROVEMENT NURSE, urgent care, hospital, or jail...) When possible be specific @ -No Did you speak to anyone other than the patient for history (EMS, parent, family, police, friend...)? What history was obtained from this source @ -No Did you review nursing and triage notes (agree or disagree)? Why? @ -I reviewed and agree with nursing and triage notes Were old charts reviewed (outside hosp., previous admission, EMS record, old EKG, old radiological studies, urgent care reports/EKG's, jail records)? Report findings @ -No old charts were reviewed Differential Diagnosis (chest pain, altered mental status, abdominal pain women, abdominal pain men, vaginal bleeding, weakness, fever, dyspnea, syncope, headache, dizziness, GI bleed, back pain, seizure, CVA, palpatations, mental health, musculoskeletal)? @ -Differential Dyspnea: Coronary syndrome, arrhythmia, tamponade, asthma, COPD, pulmonary embolism, pneumonia, pneumothorax, pulmonary effusion, anaphylaxis, diabetic ketoacidosis, flailed chest, pulmonary contusion, diaphragmatic rupture, anemia, neuromuscular, this is not meant to be an all-inclusive list. EKG interpreted by me (3pts min.). @ -none X-rays interpreted by me (1pt min.). @ -X-ray KUB reveals nonspecific bowel gas pattern with no evidence for acute process CT interpreted by me (1pt min.). @ -None done U/S interpreted by me (1pt. min.). @ -None done What testing was considered but not performed or refused? (CT, X-rays, U/S, la bs)? Why? @ -None What meds were considered but not given or refused? Why? @ -None Did you discuss the management of the patient with other professionals (professionals i.e. GILMER Yoder, IMPROVEMENT NURSE, lab, RT, psych nurse, psychologist social, asbestos abatement technician, teacher, correction officer penitentiary, nurse case management)? Give summary @ -No Was smoking cessation discussed for >3mins.? @ -No Was critical care preformed (if so, how long)? @ -No Were there social determinants of health that impacted care today? How? (Homelessness, low income, unemployed, alcoholism, drug addiction, transportation, low edu. Level, literacy, decrease access to med. care, alf, rehab)? @ -No Was there de-escalation of care discussed even if they declined (Discuss DNR or withdrawal of care, Hospice)? DNR status @ -No What co-morbidities impacted this encounter? (DM, HTN, Smoking, COPD, CAD, Cancer, CVA, ARF, Chemo, Hep., AIDS, mental health diagnosis, sleep apnea, morbid obesity)? @ -None Was patient admitted / discharged? Hospital course, mention meds given and route, prescriptions, significant lab abnormalities, going to OR and other pertinent info. @ -Discharge. 79-year-old female sent emergency room for concerns for potential allergic reaction. Overall patient is well-appearing in no signs respiratory distress initial vitals are stable. Patient appears to be quite anxious on discussion shaking and reading from a handwritten note that she made at home. Patient will be evaluated via laboratory testing and x-ray KUB to evaluate for flank pain. CBC and CMP is unremarkable. Urinalysis is concerning for infection with white blood cells white blood cell clumps, large leukocyte esterase and many bacteria. X-ray KUB is unremarkable. Patient will be treated for pyelonephritis with IV push of Rocephin outpatient prescription for Keflex. Patient is advised to. Ensure patient that she is not exhibiting signs of allergic reaction or anaphylaxis and is stable for discharge. Case discussed with Dr. benton Undiagnosed new problem with uncertain prognosis? @ -No Drug Therapy requiring intensive monitoring for toxicity (Heparin, Nitro, Insulin, Cardizem)? @ -No Were any procedures done? @ -No Diagnosis/symptom? @ -pyelonephritis, generalized anxiety Acute, or Chronic, or Acute on Chronic? @ -acute Uncomplicated (without systemic symptoms) or Complicated (systemic symptoms)? @ -uncomplicated Side effects of treatment? @ -No Exacerbation, Progression, or Severe Exacerbation? @ -No Poses a threat to life or bodily function? How? (Chest pain, USA, CT, pneumonia, PE, COPD, DKA, ARF, appy, cholecystitis, CVA, Diverticulitis, Homicidal, Suicidal, threat to staff... and all critical care pts) @ -No - Lab Data Result diagrams: 10/08/24 14:32 10/08/24 14:32 Lab Results 10/08/24 10/08/24 10/08/24 Range/Units 14:20 14:32 14:32 WBC 6.90 (4.50-10.00) 10*3/uL RBC 3.68 L (4.10-5.20) 10*6/uL Hgb 11.6 L (12.0-15.0) g/dL Hct 34.7 L (37.2-46.3) % MCV 94.3 (80.0-97.0) fL MCH 31.5 (27.0-32.0) pg MCHC 33.4 (32.0-37.0) g/dL Plt Count 176 (140-440) 10*3/uL MPV 9.5 (9.5-12.2) fL Immature Gran % (Auto) 0.3 % Neutrophils % 69.4 % Lymphocytes % 19.7 % Monocytes % 9.7 % Eosinophils % 0.6 % Basophils % 0.3 % Immature Gran # 0.02 (0.00-0.04) 10*3/uL Neutrophils # 4.79 (1.80-7.70) 10*3/uL Lymphocytes # 1.36 (0.90-5.00) 10*3/uL Monocytes # 0.67 (0.20-1.00) 10*3/uL Eosinophils # 0.04 (0.04-0.35) 10*3/uL Basophils # 0.02 (0.00-0.10) 10*3/uL Sodium 133 L (137-145) mmol/L Potassium 3.4 L (3.5-5.1) mmol/L Chloride 102 (98-107) mmol/L Carbon Dioxide 22 (22-30) mmol/L Anion Gap 9 mmol/L BUN 14 (7-17) mg/dL Creatinine 0.68 (0.52-1.04) mg/dL Est GFR (CKD-EPI)AfAm >90 (>60 ml/min/1.73 sqM) Est GFR (CKD-EPI)NonAf 82 (>60 ml/min/1.73 sqM) Glucose 80 (74-99) mg/dL Calcium 9.1 (8.4-10.2) mg/dL Total Bilirubin 1.1 (0.2-1.3) mg/dL AST 41 H (14-36) U/L ALT 34 (4-34) U/L Alkaline Phosphatase 76 (38-126) U/L Total Protein 6.4 (6.3-8.2) g/dL Albumin 4.0 (3.5-5.0) g/dL Urine Color Colorless Urine Appearance Cloudy H (Clear) Urine pH 6.0 (5.0-8.0) Ur Specific Dustin 1.004 (1.001-1.035) Urine Protein Negative (Negative) Urine Glucose (UA) Negative (Negative) Urine Ketones Negative (Negative) Urine Blood Trace H (Negative) Urine Nitrite Negative (Negative) Urine Bilirubin Negative (Negative) Urine Urobilinogen <2.0 (<2.0) mg/dL Ur Leukocyte Esterase Large H (Negative) Urine RBC 2 (0-5) /hpf Urine WBC 153 H (0-5) /hpf Urine WBC Clumps Moderate H (None) /hpf Ur Squamous Epith Cells <1 (0-4) /hpf Urine Bacteria Many H (None) /hpf Disposition Clinical Impression: Pyelonephritis Disposition: HOME SELF-CARE Condition: Stable Instructions (If sedation given, give patient instructions): Kidney Infection (ED), Urinary Tract Infection in Older Adults (ED) Additional Instructions: Please return to the Emergency Department if symptoms worsen or any other concerns. Prescriptions: Cephalexin [Keflex] 500 mg PO Q6HR #40 cap Is patient prescribed a controlled substance at d/c from ED?: No Referrals: Khushboo Mzt MD [Primary Care Provider] - 1-2 days Time of Disposition: 15:30
[2024-10-08 14:38] LABS: Basophils # (A) 0.02 10*3/uL (0.00-0.10); Basophils % (A) 0.3 %; Eosinophils # (A) 0.04 10*3/uL (0.04-0.35); Eosinophils % (A) 0.6 %; HCT 34.7 % (37.2-46.3); HGB 11.6 g/dL (12.0-15.0); Lymphocytes # (A) 1.36 10*3/uL (0.90-5.00); Lymphocytes % (A) 19.7 %; MCH 31.5 pg (27.0-32.0); MCHC 33.4 g/dL (32.0-37.0); MCV 94.3 fL (80.0-97.0); Mean Platelet Volume 9.5 fL (9.5-12.2); Monocytes # (A) 0.67 10*3/uL (0.20-1.00); Monocytes % (A) 9.7 %; Neutrophils # (A) 4.79 10*3/uL (1.80-7.70); Neutrophils % (A) 69.4 %; Platelet Count 176 10*3/uL (140-440); RBC 3.68 10*6/uL (4.10-5.20); RDW 12.3 % (11.5-14.5)
[2024-10-08 14:47] LABS: Appearance,Urine Cloudy (Clear); Bacteria,Urine Many /hpf; Bilirubin,Urine Negative (Negative); Blood,Urine Trace (Negative); Color,Urine Colorless; Glucose,Urine (UA) Negative (Negative); Ketones,Urine Negative (Negative); Leukocyte Esterase,Urine Large (Negative); Nitrite,Urine Negative (Negative); Protein,Urine Negative (Negative); RBC,Urine 2 /hpf (0-5); Specific Gravity,Urine 1.004 (1.001-1.035); Squamous Epithelial Cell,Urine <1 /hpf (0-4); Urobilinogen,Urine <2.0 mg/dL (<2.0); WBC,Urine 153 /hpf (0-5)
[2024-10-08 14:49] LABS: ALT 34 U/L (4-34); AST 41 U/L (14-36); African American GFR (CKD) >90 (>60 ml/min/1.73 sqM); Alkaline Phosphatase 76 U/L (38-126); Anion Gap 9 mmol/L; Blood Urea Nitrogen 14 mg/dL (7-17); Calcium 9.1 mg/dL (8.4-10.2); Carbon Dioxide 22 mmol/L (22-30); Chloride 102 mmol/L (98-107); Glucose 80 mg/dL (74-99); Non-African American GFR(CKD) 82 (>60 ml/min/1.73 sqM); Potassium 3.4 mmol/L (3.5-5.1); Sodium 133 mmol/L (137-145); Total Bilirubin 1.1 mg/dL (0.2-1.3); Total Protein 6.4 g/dL (6.3-8.2)
[2024-10-08] MEDS: ONDANSETRON 4 MG/2 ML VIAL IVP STA (15:21)
--- NOTE | 2024-10-08 15:21 | XR ---
EXAMINATION TYPE: XR KUB DATE OF EXAM: 10/08/2024 2:43 PM COMPARISON: 10/07/2024. CLINICAL INDICATION: Female, 79 years old with history of flank pain, hx stones; [facility] TECHNIQUE: One radiographic view of the abdomen was obtained. FINDINGS: The bowel gas pattern is nonspecific without dilated loops of small or large bowel. . Fecal material and gas are demonstrated throughout the colon and rectum. There is no evidence for organome bhaskar or pneumoperitoneum. Degeneration changes of the spine. No acute osseous process. No abnormal calcifications are present. Similar calcification projecting over the right obturator foramen. IMPRESSION: Nonspecific bowel gas pattern without radiographic evidence for acute process. [facility], , 10/08/2024 3:19 PM
[2024-10-08] MEDS: cefTRIAXone IN SWFI 1,000 MG/10 ML SYRINGE IVP STA (15:47)
[2024-10-08 15:54] VITALS: BP 126/73; PULSE 66; RESP 19; TEMP 98.5
== END 2024-10-08 15:59 | disposition home or self-care (01) ==
LOC: EC 13:16
DX: N12 Tubulo-interstitial nephritis, not specified as acute or chronic (principal); Z87.891 Personal history of nicotine dependence; Z88.5 Allergy status to narcotic agent
CPT/HCPCS: 36415; 80053; 85025; 81001; 87086; 74018; 99285; 96374; 96375; J2405; J0696

== ENCOUNTER 2024-10-22 07:36 | Emergency (ER) | payer MEDICARE, OTHER ==
--- NOTE | 2024-10-22 07:55 | ED ---
General Adult HPI - General Chief complaint: Abdominal Pain Stated complaint: Abd Pain Time Seen by Provider: 10/22/24 07:40 Source: patient, RN notes reviewed, old records reviewed Mode of arrival: ambulatory Limitations: no limitations - History of Present Illness Initial comments: This is an 79-year-old female who presents to the emergency department complaining of bilateral CVA tenderness. Patient states this is indicative of a urinary tract infection which she has had many of. Patient denies any hematuria or urinary frequency. Patient denies any dysuria. Patient denies any abdominal pain. Patient states it does not feel like one of her kidney stones for which she has had 100s. Patient denies any fever or chills. Patient also thinks she is withdrawing from her Xanax that she was taking and stopped 2 weeks ago but she has been put on another antianxiety medication - Related Data Home Medications Medication Instructions Recorded Confirmed ALPRAZolam [Xanax] 1 mg PO BID 06/15/23 03/31/24 Atorvastatin [Lipitor] 40 mg PO HS 06/15/23 03/31/24 Cyanocobalamin [Vitamin B-12] 500 mcg PO DAILY 06/15/23 03/27/24 Ezetimibe [Zetia] 10 mg PO HS 06/15/23 03/31/24 Levothyroxine Sodium [Synthroid] 25 mcg PO DAILY 06/15/23 03/31/24 Losartan Potassium 50 mg PO DAILY 06/15/23 03/31/24 Venlafaxine HCl [Effexor] 37.5 mg PO QAM 06/15/23 03/31/24 atenoloL [Tenormin] 50 mg PO DAILY 06/15/23 03/31/24 Otc Nexium 1 tab PO DIRECTED PRN 03/27/24 03/27/24 atenoloL [Atenolol] 25 mg PO HS 03/27/24 03/31/24 Previous Rx's Medication Instructions Recorded Acetaminophen-Codeine 300-30mg 1 tab PO Q4H PRN 3 Days #6 tablet 03/31/24 [Tylenol w/codeine #3] ALPRAZolam [Xanax] 1 mg PO BID 3 Days #6 tab 09/29/24 Cephalexin [Keflex] 500 mg PO Q6HR #40 cap 10/08/24 Nitrofurantoin Monohyd/M-Cryst 100 mg PO Q12HR #14 cap 10/22/24 [Macrobid] Allergies Allergy/AdvReac Type Severity Reaction Status Date / Time morphine AdvReac Nausea & Verified 10/22/24 07:40 Vomiting Review of Systems ROS Statement: Those systems with pertinent positive or pertinent negative responses have been documented in the HPI. ROS Other: All systems not noted in ROS Statement are negative. Past Medical History Past Medical History: Cancer, Hyperlipidemia, Hypertension, Thyroid Disorder Additional Past Medical History / Comment(s): "smell disorder" (unknown name), cant tolerate string smells. Bilat Breast cancer, Right 1998, Radiation. Left 2012 ?, surgery done, no other treatment, pt declined tx History of Any Multi-Drug Resistant Organisms: None Reported Past Surgical History: Breast Surgery Additional Past Surgical History / Comment(s): "Blocked small intestine 2 years ago.", kidney stones removed 08/2023, multiple lithotripsy procedures. Bilat breast cancer lumpectomy. Past Anesthesia/Blood Transfusion Reactions: No Reported Reaction Additional Past Anesthesia/Blood Transfusion Reaction / Comment(s): heart stopped during kidney surgery- had kidney infection Past Psychological History: Anxiety, Depression Smoking Status: Former smoker Past Alcohol Use History: None Reported Past Drug Use History: None Reported - Past Family History Mother Family Medical History: No Reported History Father Family Medical History: Cancer, Myocardial Infarction ([place]) Additional Family Medical History / Comment(s): pancreatic cancer General Exam - General Exam Comments Initial Comments: GENERAL: Patient is well-developed and well-nourished. Patient is nontoxic and well- hydrated and is in mild distress. ENT: Neck is soft and supple. No significant lymphadenopathy is noted. Oropharynx is clear. Moist mucous membranes. Neck has full range of motion without eliciting any pain. EYES: The sclera were anicteric and conjunctiva were pink and moist. Extraocular movements were intact and pupils were equal round and reactive to light. Eyelids were unremarkable. PULMONARY: Unlabored respirations. Good breath sounds bilaterally. No audible rales rhonchi or wheezing was noted. CARDIOVASCULAR: There is a regular rate and rhythm without any murmurs gallops or rubs. ABDOMEN: Soft and nontender with normal bowel sounds. No palpable organomegaly was noted. There is no palpable pulsatile mass. Mild CVA tenderness SKIN: Skin is clear with no lesions or rashes and otherwise unremarkable. NEUROLOGIC: Patient is alert and oriented x3. Cranial nerves II through XII are grossly intact. Motor and sensory are also intact. Normal speech, volume and content. Symmetrical smile. MUSCULOSKELETAL: Normal extremities with adequate strength and full range of motion. No lower extremity swelling or edema. No calf tenderness. LYMPHATICS: No significant lymphadenopathy is noted PSYCHIATRIC: Patient is highly anxious Limitations: no limitations Course Vital Signs 10/22/24 10/22/24 07:37 08:54 Temperature 98 F Pulse Rate 66 53 L Respiratory 18 16 Rate Blood Pressure 150/75 146/71 O2 Sat by Pulse 98 99 Oximetry Medical Decision Making - Medical Decision Making EKG is interpreted by myself and EKG shows sinus rhythm at 61 bpm MA 131 QRS of 79 QT was 408 QTc is 411. Patient's EKG shows no ST segment elevations or depr ession. Was pt. sent in by a medical professional or institution (, PA, SOILS ENGINEER, urgent care, hospital, or long-term...) When possible be specific @ -No Did you speak to anyone other than the patient for history (EMS, parent, family, police, friend...)? What history was obtained from this source @ -No Did you review nursing and triage notes (agree or disagree)? Why? @ -I reviewed and agree with nursing and triage notes Were old charts reviewed (outside hosp., previous admission, EMS record, old EKG, old radiological studies, urgent care reports/EKG's, long-term records)? Report findings @ -No old charts were reviewed Differential Diagnosis? @ -Differential Back Pain: Strain, zoster, cauda equina syndrome, epidural abscess, vertebral osteomyelitis, discitis, fracture, subluxation, disc herniation, DJD, spinal stenosis, dissection, AAA, pancreatitis, peptic ulcer disease, pyelonephritis, kidney stone, this is not meant to be an all-inclusive list. EKG interpreted by me (3pts min.). @ -As above X-rays interpreted by me (1pt min.). @ -None done CT interpreted by me (1pt min.). @ -None done U/S interpreted by me (1pt. min.). @ -None done What testing was considered but not performed or refused? (CT, X-rays, U/S, labs)? Why? @ -None What meds were considered but not given or refused? Why? @ -None Did you discuss the management of the patient with other professionals (tejas serra i.e. , PA, SOILS ENGINEER, lab, RT, psych nurse, social worker clinical, weight clerk, teacher, banking officer, case repairer)? Give summary @ -No Was smoking cessation discussed for >3mins.? @ -No Was critical care preformed (if so, how long)? @ -No Were there social determinants of health that impacted care today? How? (Homelessness, low income, unemployed, alcoholism, drug addiction, transportation, low edu. Level, literacy, decrease access to med. care, penitentiary, rehab)? @ -No Was there de-escalation of care discussed even if they declined (Discuss DNR or withdrawal of care, Hospice)? DNR status @ -No What co-morbidities impacted this encounter? (DM, HTN, Smoking, COPD, CAD, Cancer, CVA, ARF, Chemo, Hep., AIDS, mental health diagnosis, sleep apnea, morbid obesity)? @ -None Was patient admitted / discharged? Hospital course, mention meds given and route, prescriptions, significant lab abnormalities, going to OR and other pertinent info. @ -Patient's urine came back and showed urinary tract infection. Patient was given 2 g of Rocephin and will be sent home on antibiotic. Undiagnosed new problem with uncertain prognosis? @ -No Drug Therapy requiring intensive monitoring for toxicity (Heparin, Nitro, Insulin, Cardizem)? @ -No Were any procedures done? @ -No Diagnosis/symptom? @ -Urinary tract infection Acute, or Chronic, or Acute on Chronic? @ -Acute Uncomplicated (without systemic symptoms) or Complicated (systemic symptoms)? @ -Complicated Side effects of treatment? @ -No Exacerbation, Progression, or Severe Exacerbation? @ -No Poses a threat to life or bodily function? How? (Chest pain, [place], [place], pneumonia, PE, COPD, DKA, ARF, appy, cholecystitis, CVA, Diverticulitis, Homicidal, Suicidal, threat to staff... and all critical care pts) @ -No - Lab Data Result diagrams: 10/22/24 08:43 10/22/24 08:43 Lab Results 10/22/24 10/22/24 10/22/24 Range/Units 08:29 08:43 08:43 WBC 4.05 L (4.50-10.00) 10*3/uL RBC 3.98 L (4.10-5.20) 10*6/uL Hgb 12.6 (12.0-15.0) g/dL Hct 38.2 (37.2-46.3) % MCV 96.0 (80.0-97.0) fL MCH 31.7 (27.0-32.0) pg MCHC 33.0 (32.0-37.0) g/dL Plt Count 178 (140-440) 10*3/uL MPV 9.9 (9.5-12.2) fL Immature Gran % (Auto) 0.5 % Neutrophils % 74.4 % Lymphocytes % 14.3 % Monocytes % 10.4 % Eosinophils % 0.2 % Basophils % 0.2 % Immature Gran # 0.02 (0.00-0.04) 10*3/uL Neutrophils # 3.01 (1.80-7.70) 10*3/uL Lymphocytes # 0.58 L (0.90-5.00) 10*3/uL Monocytes # 0.42 (0.20-1.00) 10*3/uL Eosinophils # 0.01 L (0.04-0.35) 10*3/uL Basophils # 0.01 (0.00-0.10) 10*3/uL Sodium 141 (137-145) mmol/L Potassium 4.1 (3.5-5.1) mmol/L Chloride 104 (98-107) mmol/L Carbon Dioxide 28 (22-30) mmol/L Anion Gap 9 mmol/L BUN 9 (7-17) mg/dL Creatinine 0.58 (0.52-1.04) mg/dL Est GFR (CKD-EPI)AfAm >90 (>60 ml/min/1.73 sqM) Est GFR (CKD-EPI)NonAf 87 (>60 ml/min/1.73 sqM) Glucose 114 H (74-99) mg/dL Calcium 9.8 (8.4-10.2) mg/dL Total Bilirubin 0.9 (0.2-1.3) mg/dL AST 33 (14-36) U/L ALT 27 (4-34) U/L Alkaline Phosphatase 82 (38-126) U/L Total Protein 6.5 (6.3-8.2) g/dL Albumin 4.1 (3.5-5.0) g/dL Amylase 32 (30-110) U/L Lipase 149 (23-300) U/L Urine Color Colorless Urine Appearance Cloudy H (Clear) Urine pH 6.5 (5.0-8.0) Ur Specific [place] 1.008 (1.001-1.035) Urine Protein Negative (Negative) Urine Glucose (UA) Negative (Negative) Urine Ketones Negative (Negative) Urine Blood Trace H (Negative) Urine Nitrite Negative (Negative) Urine Bilirubin Negative (Negative) Urine Urobilinogen <2.0 (<2.0) mg/dL Ur Leukocyte Esterase Large H (Negative) Urine RBC 6 H (0-5) /hpf Urine WBC >182 H (0-5) /hpf Urine WBC Clumps Few H (None) /hpf Ur Squamous Epith Cells 1 (0-4) /hpf Urine Bacteria Many H (None) /hpf Urine Mucus Rare H (None) /hpf Disposition Clinical Impression: Urinary tract infection Disposition: HOME SELF-CARE Condition: Good Prescriptions: Nitrofurantoin Monohyd/M-Cryst [Macrobid] 100 mg PO Q12HR #14 cap Is patient prescribed a controlled substance at d/c from ED?: No Referrals: Khushboo Mtz MD [Primary Care Provider] - 1-2 days Time of Disposition: 10:34
[2024-10-22 08:55] VITALS: RESP 16
[2024-10-22 09:03] LABS: Basophils # (A) 0.01 10*3/uL (0.00-0.10); Basophils % (A) 0.2 %; Eosinophils # (A) 0.01 10*3/uL (0.04-0.35); Eosinophils % (A) 0.2 %; HCT 38.2 % (37.2-46.3); HGB 12.6 g/dL (12.0-15.0); Lymphocytes # (A) 0.58 10*3/uL (0.90-5.00); Lymphocytes % (A) 14.3 %; MCH 31.7 pg (27.0-32.0); MCHC 33.0 g/dL (32.0-37.0); MCV 96.0 fL (80.0-97.0); Monocytes # (A) 0.42 10*3/uL (0.20-1.00); Monocytes % (A) 10.4 %; Neutrophils # (A) 3.01 10*3/uL (1.80-7.70); Neutrophils % (A) 74.4 %; Platelet Count 178 10*3/uL (140-440); RBC 3.98 10*6/uL (4.10-5.20); RDW 12.8 % (11.5-14.5); WBC 4.05 10*3/uL (4.50-10.00)
[2024-10-22] MEDS: LORazepam 1 MG/0.5 ML VIAL IV STA (09:16)
[2024-10-22] MEDS: KETOROLAC 15 MG/ML 1 ML VIAL IVP STA (09:16)
[2024-10-22 09:36] LABS: ALT 27 U/L (4-34); AST 33 U/L (14-36); African American GFR (CKD) >90 (>60 ml/min/1.73 sqM); Albumin 4.1 g/dL (3.5-5.0); Alkaline Phosphatase 82 U/L (38-126); Amylase 32 U/L (30-110); Anion Gap 9 mmol/L; Blood Urea Nitrogen 9 mg/dL (7-17); Calcium 9.8 mg/dL (8.4-10.2); Carbon Dioxide 28 mmol/L (22-30); Chloride 104 mmol/L (98-107); Glucose 114 mg/dL (74-99); Lipase 149 U/L (23-300); Non-African American GFR(CKD) 87 (>60 ml/min/1.73 sqM); Potassium 4.1 mmol/L (3.5-5.1); Sodium 141 mmol/L (137-145); Total Protein 6.5 g/dL (6.3-8.2)
[2024-10-22 09:55] LABS: Bacteria,Urine Many /hpf; Bilirubin,Urine Negative (Negative); Blood,Urine Trace (Negative); Color,Urine Colorless; Glucose,Urine (UA) Negative (Negative); Ketones,Urine Negative (Negative); Leukocyte Esterase,Urine Large (Negative); Mucus,Urine Rare /hpf; Nitrite,Urine Negative (Negative); PH, Urine 6.5 (5.0-8.0); Protein,Urine Negative (Negative); RBC,Urine 6 /hpf (0-5); Specific Gravity,Urine 1.008 (1.001-1.035); Squamous Epithelial Cell,Urine 1 /hpf (0-4); Urobilinogen,Urine <2.0 mg/dL (<2.0); WBC,Urine >182 /hpf (0-5)
[2024-10-22] MEDS: cefTRIAXone IN SWFI 1,000 MG/10 ML SYRINGE IVP STA (11:09)
[2024-10-22 11:11] VITALS: BP 129/65; PULSE 57; TEMP 97.6
== END 2024-10-22 11:24 | disposition home or self-care (01) ==
LOC: EC 07:36
DX: N39.0 Urinary tract infection, site not specified (principal); Z87.891 Personal history of nicotine dependence; Z88.5 Allergy status to narcotic agent
CPT/HCPCS: 36415; 93005; 80053; 82150; 83690; 85025; 81001; 87086; 99284; 96374; 96375; J2060; J0696; J1885; 99285

== ENCOUNTER 2024-10-25 16:11 | Emergency (ER) | payer MEDICARE, OTHER ==
--- NOTE | 2024-10-25 16:41 | ED ---
Abdominal Pain HPI - General Chief Complaint: Abdominal Pain Stated Complaint: Abd pain Time Seen by Provider: 10/25/24 16:22 Source: patient Mode of arrival: ambulatory Limitations: no limitations - History of Present Illness Initial Comments: 79-year-old female presenting with chief complaint of UTI. Patient states she was here few days ago complaining of UTI-like symptoms. She is having bilateral lower back pain as well as dysuria and cloudy urine. She was given Rocephin and started on Macrobid. States that the Macrobid is not working and she does not feel better. She believes that she has had a fever, has not checked her temperature. No nausea or vomiting. No hematuria. - Related Data Home Medications Medication Instructions Recorded Confirmed ALPRAZolam [Xanax] 1 mg PO BID 06/15/23 03/31/24 Atorvastatin [Lipitor] 40 mg PO HS 06/15/23 03/31/24 Cyanocobalamin [Vitamin B-12] 500 mcg PO DAILY 06/15/23 03/27/24 Ezetimibe [Zetia] 10 mg PO HS 06/15/23 03/31/24 Levothyroxine Sodium [Synthroid] 25 mcg PO DAILY 06/15/23 03/31/24 Losartan Potassium 50 mg PO DAILY 06/15/23 03/31/24 Venlafaxine HCl [Effexor] 37.5 mg PO QAM 06/15/23 03/31/24 atenoloL [Tenormin] 50 mg PO DAILY 06/15/23 03/31/24 Otc Nexium 1 tab PO DIRECTED PRN 03/27/24 03/27/24 atenoloL [Atenolol] 25 mg PO HS 03/27/24 03/31/24 Previous Rx's Medication Instructions Recorded Acetaminophen-Codeine 300-30mg 1 tab PO Q4H PRN 3 Days #6 tablet 03/31/24 [Tylenol w/codeine #3] ALPRAZolam [Xanax] 1 mg PO BID 3 Days #6 tab 09/29/24 Cephalexin [Keflex] 500 mg PO Q6HR #40 cap 10/08/24 Nitrofurantoin Monohyd/M-Cryst 100 mg PO Q12HR #14 cap 10/22/24 [Macrobid] Allergies Allergy/AdvReac Type Severity Reaction Status Date / Time gentamicin Allergy Anaphylaxis Verified 10/25/24 16:17 morphine AdvReac Nausea & Verified 10/25/24 16:17 Vomiting Review of Systems ROS Statement: Those systems with pertinent positive or pertinent negative responses have been documented in the HPI. ROS Other: All systems not noted in ROS Statement are negative. Past Medical History Past Medical History: Cancer, Hyperlipidemia, Hypertension, Thyroid Disorder Additional Past Medical History / Comment(s): "smell disorder" (unknown name), cant tolerate string smells. Bilat Breast cancer, Right 1998, Radiation. Left 2012 ?, surgery done, no other treatment, pt declined tx History of Any Multi-Drug Resistant Organisms: None Reported Past Surgical History: Breast Surgery Additional Past Surgical History / Comment(s): "Blocked small intestine 2 years ago.", kidney stones removed 08/2023, multiple lithotripsy procedures. Bilat breast cancer lumpectomy. Past Anesthesia/Blood Transfusion Reactions: No Reported Reaction Additional Past Anesthesia/Blood Transfusion Reaction / Comment(s): heart stopped during kidney surgery- had kidney infection Past Psychological History: Anxiety, Depression Smoking Status: Former smoker Past Alcohol Use History: None Reported Past Drug Use History: None Reported - Past Family History Mother Family Medical History: No Reported History Father Family Medical History: Cancer, Myocardial Infarction ([place]) Additional Family Medical History / Comment(s): pancreatic cancer General Exam Limitations: no limitations General appearance: alert, in no apparent distress Head exam: Present: atraumatic, normocephalic, normal inspection Eye exam: Present: normal appearance, EOMI Neck exam: Present: normal inspection. Absent: meningismus Respiratory exam: Present: normal lung sounds bilaterally. Absent: respiratory distress, wheezes, rales, rhonchi, stridor Cardiovascular Exam: Present: regular rate, normal rhythm, normal heart sounds. Absent: systolic murmur, diastolic murmur, rubs, gallop, clicks GI/Abdominal exam: Present: soft. Absent: distended, tenderness, guarding, rebound, rigid Back exam: Present: normal inspection. Absent: CVA tenderness (R), CVA tenderness (L) Neurological exam: Present: alert, oriented X3 Psychiatric exam: Present: normal affect, normal mood Skin exam: Present: warm, dry, normal color Course Vital Signs 10/25/24 10/25/24 16:14 17:50 Temperature 98.6 F 98.4 F Pulse Rate 75 72 Respiratory 18 20 Rate Blood Pressure 133/83 130/62 O2 Sat by Pulse 98 97 Oximetry Medical Decision Making - Medical Decision Making Was pt. sent in by a medical professional or institution (GILMER Yoder, AUTOMOTIVE INTERNET SALES CONSULTANT, urgent care, hospital, or fdc...) When possible be specific @ -No Did you speak to anyone other than the patient for history (EMS, parent, family, police, friend...)? What history was obtained from this source @ -No Did you review nursing and triage notes (agree or disagree)? Why? @ -I reviewed and agree with nursing and triage notes Were old charts reviewed (outside hosp., previous admission, EMS record, old EKG, old radiological studies, urgent care reports/EKG's, fdc records)? Report findings @ -Reviewed the patient's most recent visit and urine culture from that visit Differential Diagnosis (chest pain, altered mental status, abdominal pain women, abdominal pain men, vaginal bleeding, weakness, fever, dyspnea, syncope, headache, dizziness, GI bleed, back pain, seizure, CVA, palpatations, mental health, musculoskeletal)? @ -Differential includes UTI, kidney stone, chronic pain, not all-inclusive list EKG interpreted by me (3pts min.). @ -As above X-rays interpreted by me (1pt min.). @ -None done CT interpreted by me (1pt min.). @ -None done U/S interpreted by me (1pt. min.). @ -None done What testing was considered but not performed or refused? (CT, X-rays, U/S, labs)? Why? @ -None What meds were considered but not given or refused? Why? @ -None Did you discuss the management of the patient with other professionals (professionals i.e. GILMER Yoder, AUTOMOTIVE INTERNET SALES CONSULTANT, lab, RT, psych nurse, social insurance analyst, dispatcher bus and trolley, teacher, general service officer, case aide)? Give summary @ -No Was smoking cessation discussed for >3mins.? @ -No Was critical care preformed (if so, how long)? @ -No Were there social determinants of health that impacted care today? How? (Homelessness, low income, unemployed, alcoholism, drug addiction, transportation, low edu. Level, literacy, decrease access to med. care, senior living, rehab)? @ -No Was there de-escalation of care discussed even if they declined (Discuss DNR or withdrawal of care, Hospice)? DNR status @ -No What co-morbidities impacted this encounter? (DM, HTN, Smoking, COPD, CAD, Cancer, CVA, ARF, Chemo, Hep., AIDS, mental health diagnosis, sleep apnea, morbid obesity)? @ -None Was patient admitted / discharged? Hospital course, mention meds given and route, prescriptions, significant lab abnormalities, going to OR and other pertinent info. @ -79-year-old female presenting with chief complaint of "I have a UTI". She was seen here recently for UTI started on Macrobid and given a dose of Rocephin prior to discharge. She reports that she does not think the Macrobid is working. She admits to dysuria and bilateral lower back pain. No injury or trauma no red flag symptoms. Urine shows small leukocytes with 6 WBCs. Improved from her recent visit. Her culture from her most recent visit also shows that Macrobid is indeed sensitive. She later tells me that the Macrobid makes her nauseous, she is provided with Zofran for home. Instructed to continue taking her medication as prescribed. Patient is educated on today's findings. Discharged. Follow-up with PCP. Report back to ER with any new or worsening symptoms. Discussed return parameters and answered all questions. Patient conveyed verbal understanding and agreed to the plan. I discussed this case in detail with my attending Dr. Klein Undiagnosed new problem with uncertain prognosis? @ -No Drug Therapy requiring intensive monitoring for toxicity (Heparin, Nitro, Insulin, Cardizem)? @ -No Were any procedures done? @ -No Diagnosis/symptom? @ -UTI Acute, or Chronic, or Acute on Chronic? @ -Acute Uncomplicated (without systemic symptoms) or Complicated (systemic symptoms)? @ -Uncomplicated Side effects of treatment? @ -No Exacerbation, Progression, or Severe Exacerbation? @ -No Poses a threat to life or bodily function? How? (Chest pain, [place], [place], pneumonia, PE, COPD, DKA, ARF, appy, cholecystitis, CVA, Diverticulitis, Homicidal, Suicidal, threat to staff... and all critical care pts) @ -Unlikely - Lab Data Lab Results 10/25/24 Range/Units 16:32 Urine Color Colorless Urine Appearance Clear (Clear) Urine pH 6.5 (5.0-8.0) Ur Specific [place] 1.003 (1.001-1.035) Urine Protein Negative (Negative) Urine Glucose (UA) Negative (Negative) Urine Ketones Negative (Negative) Urine Blood Negative (Negative) Urine Nitrite Negative (Negative) Urine Bilirubin Negative (Negative) Urine Urobilinogen <2.0 (<2.0) mg/dL Ur Leukocyte Esterase Small H (Negative) Urine RBC <1 (0-5) /hpf Urine WBC 6 H (0-5) /hpf Ur Squamous Epith Cells <1 (0-4) /hpf Disposition Clinical Impression: UTI (urinary tract infection) Disposition: HOME SELF-CARE Condition: Good Instructions (If sedation given, give patient instructions): Urinary Tract Infection in Women (ED) Additional Instructions: Follow-up with your PCP. Report back to ER with any new or worsening symptoms. Continue taking your Macrobid as prescribed. Is patient prescribed a controlled substance at d/c from ED?: No Referrals: Khushboo Mtz MD [Primary Care Provider] - 1-2 days Time of Disposition: 17:28
[2024-10-25 16:49] LABS: Bilirubin,Urine Negative (Negative); Blood,Urine Negative (Negative); Color,Urine Colorless; Glucose,Urine (UA) Negative (Negative); Ketones,Urine Negative (Negative); Leukocyte Esterase,Urine Small (Negative); Nitrite,Urine Negative (Negative); PH, Urine 6.5 (5.0-8.0); Protein,Urine Negative (Negative); RBC,Urine <1 /hpf (0-5); Specific Gravity,Urine 1.003 (1.001-1.035); Squamous Epithelial Cell,Urine <1 /hpf (0-4); Urobilinogen,Urine <2.0 mg/dL (<2.0); WBC,Urine 6 /hpf (0-5)
[2024-10-25] MEDS: ONDANSETRON 4 MG ODT STARTER PACK 2 TAB BTL PO STA (17:50)
[2024-10-25 18:11] VITALS: BP 130/62; PULSE 72; RESP 20; TEMP 98.4
== END 2024-10-25 17:50 | disposition home or self-care (01) ==
LOC: EC 16:11
DX: N39.0 Urinary tract infection, site not specified (principal); Z88.1 Allergy status to other antibiotic agents; Z88.5 Allergy status to narcotic agent; Z87.891 Personal history of nicotine dependence
CPT/HCPCS: 99283; 81001; 99284; S0119

== ENCOUNTER 2024-10-28 15:23 | Observation (INO) | payer MEDICARE, OTHER ==
--- NOTE | 2024-10-28 17:32 | CT ---
EXAMINATION TYPE: CT brain cspine wo con CT DLP: 1426.5 mGycm, Automated exposure control for dose reduction was used. DATE OF EXAM: 10/28/2024 5:23 PM COMPARISON: None.. CLINICAL INDICATION:Female, 79 years old with history of pain; fell 1 month ago, neck pain. c/o crack ing to neck with movement., pain TECHNIQUE: Brain: Multiple axial CT images of the brain were obtained without IV contrast. Cspine: Axial CT images from the skull base to the inferior aspect of T2 we obtained without intraven ous contrast. Coronal and sagittal reformatted images were also reviewed. FINDINGS: Brain: Extra-axial spaces: No abnormal extra-axial fluid collections. Ventricular system: Within normal limits Cerebral parenchyma: Cerebral atrophy. No acute intraparenchymal hemorrhage or mass effect. The gonzales -white junction is well differentiated. Scattered hypoattenuating areas are seen within the periventr icular and subcortical white matter. Cerebellum: Unremarkable. Mass effect: No evidence of midline shift. Intracranial vasculature: Atherosclerotic calcifications of the intracranial vessels. Soft tissues: Normal. Calvarium/osseous structures: No depressed skull fracture. Paranasal sinuses and mastoid air cells: Clear. Visualized orbits: Bilateral aphakia Cervical spine: Fracture: None. Osseous structures: Multilevel degenerative disc disease changes with endplate spurring and disc oste ophyte complex's. Multilevel facet arthropathy. Vertebral alignment: Likely degenerative grade 1 anterolisthesis of C3 on C4. Spinal canal/Neural Foramina: Disc osteophyte complexes at C4-C5, C5-C6, C6-C7 with at least mild spi nal canal stenosis. Facet joint uncovertebral joint arthropathy scattered throughout the cervical spi ne with varying degrees of neural foraminal stenosis. Neck soft tissues: Prevertebral soft tissues are within normal limits. Other: The airway is patent. The lung apices are clear. IMPRESSION: 1. No acute intracranial process. 2. Nonspecific white matter changes, likely secondary to chronic small vessel ischemic disease. 3. No evidence of cervical spine fracture. 4. Mild to moderate multilevel degenerative disc disease. [facility], , 10/28/2024 5:30 PM
--- NOTE | 2024-10-28 18:03 | ED ---
General Adult HPI - General Source: patient, RN notes reviewed Mode of arrival: ambulatory Limitations: no limitations <Gabriela Andersen - Last Filed: 10/28/24 19:00> - General Source: patient, RN notes reviewed, old records reviewed Mode of arrival: ambulatory Limitations: no limitations, altered mental status, physical limitation - History of Present Illness Location: face Radiation: non-radiation Severity scale (1-10): 0 Consistency: constant Improves with: none Worsens with: none Associated Symptoms: confusion Treatments Prior to Arrival: none <Jim Singh - Last Filed: 10/28/24 22:52> - General Chief complaint: Neck Pain/Injury Stated complaint: cant swollow Time Seen by Provider: 10/28/24 16:23 - History of Present Illness Initial comments: 79-year-old female presents to the emergency department for evaluation of cracking in her neck. Patient states that she laid on her pillow yesterday and felt her neck crack. This concerned the patient. Patient also reports multiple other complaints including constipation. She states that she took a stool softener and prune juice yesterday. She does report having small bowel movement following this. Patient also endorses recurrent urinary tract infections. She does not have any symptoms at this time. Denies any recent fever, chills. She does note that she was recently taken off of her Xanax and started on lorazepam. She states that this medication causes her to be more anxious. (Gabriela Andersen) - Related Data Home Medications Medication Instructions Recorded Confirmed ALPRAZolam [Xanax] 1 mg PO BID 06/15/23 03/31/24 Atorvastatin [Lipitor] 40 mg PO HS 06/15/23 03/31/24 Cyanocobalamin [Vitamin B-12] 500 mcg PO DAILY 06/15/23 03/27/24 Ezetimibe [Zetia] 10 mg PO HS 06/15/23 03/31/24 Levothyroxine Sodium [Synthroid] 25 mcg PO DAILY 06/15/23 03/31/24 Losartan Potassium 50 mg PO DAILY 06/15/23 03/31/24 Venlafaxine HCl [Effexor] 37.5 mg PO QAM 06/15/23 03/31/24 atenoloL [Tenormin] 50 mg PO DAILY 06/15/23 03/31/24 Otc Nexium 1 tab PO DIRECTED PRN 03/27/24 03/27/24 atenoloL [Atenolol] 25 mg PO HS 03/27/24 03/31/24 Previous Rx's Medication Instructions Recorded Acetaminophen-Codeine 300-30mg 1 tab PO Q4H PRN 3 Days #6 tablet 03/31/24 [Tylenol w/codeine #3] ALPRAZolam [Xanax] 1 mg PO BID 3 Days #6 tab 09/29/24 Cephalexin [Keflex] 500 mg PO Q6HR #40 cap 10/08/24 Nitrofurantoin Monohyd/M-Cryst 100 mg PO Q12HR #14 cap 10/22/24 [Macrobid] Allergies Allergy/AdvReac Type Severity Reaction Status Date / Time gentamicin Allergy Anaphylaxis Verified 10/25/24 16:17 morphine AdvReac Nausea & Verified 10/25/24 16:17 Vomiting Review of Systems ROS Other: All systems not noted in ROS Statement are negative. <Gabriela Andersen - Last Filed: 10/28/24 19:00> ROS Other: All systems not noted in ROS Statement are negative. <Jim Singh - Last Filed: 10/28/24 22:52> ROS Statement: Those systems with pertinent positive or pertinent negative responses have been documented in the HPI. Past Medical History Past Medical History: Cancer, Hyperlipidemia, Hypertension, Thyroid Disorder Additional Past Medical History / Comment(s): "smell disorder" (unknown name), cant tolerate string smells. Bilat Breast cancer, Right 1998, Radiation. Left 2012 ?, surgery done, no other treatment, pt declined tx History of Any Multi-Drug Resistant Organisms: None Reported Past Surgical History: Breast Surgery Additional Past Surgical History / Comment(s): "Blocked small intestine 2 years ago.", kidney stones removed 08/2023, multiple lithotripsy procedures. Bilat breast cancer lumpectomy. Past Anesthesia/Blood Transfusion Reactions: No Reported Reaction Additional Past Anesthesia/Blood Transfusion Reaction / Comment(s): heart stopped during kidney surgery- had kidney infection Past Psychological History: Anxiety, Depression Smoking Status: Former smoker Past Alcohol Use History: None Reported Past Drug Use History: None Reported - Past Family History Mother Family Medical History: No Reported History Father Family Medical History: Cancer, Myocardial Infarction (ID) Additional Family Medical History / Comment(s): pancreatic cancer <Gabriela Andersen - Last Filed: 10/28/24 19:00> General Exam Limitations: no limitations General appearance: alert, in no apparent distress Head exam: Present: atraumatic, normocephalic, normal inspection Eye exam: Present: normal appearance, PERRL, EOMI. Absent: scleral icterus, conjunctival injection, periorbital swelling ENT exam: Present: normal exam, mucous membranes moist Neck exam: Present: normal inspection. Absent: tenderness, meningismus, lymphadenopathy Respiratory exam: Present: normal lung sounds bilaterally. Absent: respiratory distress, wheezes, rales, rhonchi, stridor Cardiovascular Exam: Present: regular rate, normal rhythm, normal heart sounds. Absent: systolic murmur, diastolic murmur, rubs, gallop, clicks GI/Abdominal exam: Present: soft. Absent: distended, tenderness, guarding, rebound, rigid Extremities exam: Present: normal inspection, full ROM, normal capillary refill. Absent: tenderness, pedal edema, joint swelling, calf tenderness Back exam: Present: normal inspection Neurological exam: Present: alert, oriented X3 Psychiatric exam: Present: normal affect, normal mood Skin exam: Present: warm, dry, intact, normal color. Absent: rash <Gabriela Andersen - Last Filed: 10/28/24 19:00> Limitations: altered mental status, physical limitation General appearance: alert, in no apparent distress, anxious Head exam: Present: atraumatic, normocephalic, normal inspection Eye exam: Present: normal appearance, PERRL, EOMI. Absent: scleral icterus, conjunctival injection, periorbital swelling ENT exam: Present: normal exam, mucous membranes moist Neck exam: Present: normal inspection. Absent: tenderness, meningismus, lymphadenopathy Respiratory exam: Present: normal lung sounds bilaterally. Absent: respiratory distress, wheezes, rales, rhonchi, stridor Cardiovascular Exam: Present: regular rate, normal rhythm, normal heart sounds. Absent: systolic murmur, diastolic murmur, rubs, gallop, clicks GI/Abdominal exam: Present: soft, normal bowel sounds. Absent: distended, tenderness, guarding, rebound, rigid Extremities exam: Present: normal inspection, full ROM, normal capillary refill. Absent: tenderness, pedal edema, joint swelling, calf tenderness Back exam: Present: normal inspection Neurological exam: Present: alert, oriented X3, CN II-XII intact Psychiatric exam: Present: normal affect, normal mood Skin exam: Present: warm, dry, intact, normal color. Absent: rash <Jim Singh - Last Filed: 10/28/24 22:52> Course <Jim Singh - Last Filed: 10/28/24 22:52> Vital Signs 10/28/24 10/28/24 16:18 20:53 Temperature 97.9 F Pulse Rate 72 63 Respiratory 20 18 Rate Blood Pressure 146/74 139/73 O2 Sat by Pulse 98 99 Oximetry - Reevaluation(s) Reevaluation #1: 10/28/24 22:51 Medical records reviewed (Jim Singh) Reevaluation #2: 10/28/24 22:51 Medically cleared for psychiatric evaluation (Jim Singh) Reevaluation #3: 10/28/24 22:51 Patient seen by psychiatry not candidate for inpatient psychiatric treatment (Jim Singh) - Consultations Consultation #1: Spoke with Dr. Bibi mack with concern about patient's mental status and will need place in observation for further treatment (Jim Singh) Medical Decision Making <Gabriela Andersen - Last Filed: 10/28/24 19:00> - Lab Data Result diagrams: 10/28/24 18:53 10/28/24 18:53 - Radiology Data Radiology results: report reviewed (CT brain and C-spine are negative for acute disease), image reviewed <Jim Singh - Last Filed: 10/28/24 22:52> - Medical Decision Making Was pt. sent in by a medical professional or institution (, PA, [facility], urgent care, hospital, or [place] [facility] facility...) When possible be specific @ -[No] Did you speak to anyone other than the patient for history (EMS, parent, family, police, friend...)? What history was obtained from this source @ -[No] Did you review nursing and triage notes (agree or disagree)? Why? @ -[I reviewed and agree with nursing and triage notes] Were old charts reviewed (outside hosp., previous admission, EMS record, old EKG, old radiological studies, urgent care reports/EKG's, [place] health care facility records)? Report findings @ -I did review charts for the patient's prior visits with various complaints o mireya the past 1 month.. Differential Diagnosis (chest pain, altered mental status, abdominal pain women, abdominal pain men, vaginal bleeding, weakness, fever, dyspnea, syncope, headache, dizziness, GI bleed, back pain, seizure, CVA, palpatations, mental health, musculoskeletal)? @ -Differential Back Pain: Strain, zoster, cauda equina syndrome, epidural abscess, vertebral osteomyelitis, discitis, fracture, subluxation, disc herniation, DJD, spinal stenosis, dissection, AAA, pancreatitis, peptic ulcer disease, pyelonephritis, kidney stone, this is not meant to be an all-inclusive list. Differential Mental Health Depression, anxiety, bipolar, psychosis, schizophrenia, borderline personality, situational depression, adjustment disorder, behavioral disorder, brain tumor, malingering, substance abuse, encephalopathy, medication reaction, dementia, hypothyroidism, degenerative neurologic disorder, lupus.... This is not meant to be all-inclusive list EKG interpreted by me (3pts min.). @ -None X-rays interpreted by me (1pt min.). @ -[None done] CT interpreted by me (1pt min.). @ -[None done] U/S interpreted by me (1pt. min.). @ -[None done] What testing was considered but not performed or refused? (CT, X-rays, U/S, labs)? Why? @ -[None] What meds were considered but not given or refused? Why? @ -[None] Did you discuss the management of the patient with other professionals (vania weiner i.e. , PA, [facility], lab, RT, psych nurse, social service agency director, master hearth technician, teacher, national insurance officer, caser up)? Give summary @ -[No] Was smoking cessation discussed for >3mins.? @ -[No] Was critical care preformed (if so, how long)? @ -[No] Were there social determinants of health that impacted care today? How? (Homelessness, low income, unemployed, alcoholism, drug addiction, transportation, low edu. Level, literacy, decrease access to med. care, detention, rehab)? @ -[No] Was there de-escalation of care discussed even if they declined (Discuss DNR or withdrawal of care, Hospice)? DNR status @ -[No] What co-morbidities impacted this encounter? (DM, HTN, Smoking, COPD, CAD, Cancer, CVA, ARF, Chemo, Hep., AIDS, mental health diagnosis, sleep apnea, morbid obesity)? @ -[None] Was patient admitted / discharged? Hospital course, mention meds given and route, prescriptions, significant lab abnormalities, going to OR and other pertinent info. @ -[hospital course] Undiagnosed new problem with uncertain prognosis? @ -[No] Drug Therapy requiring intensive monitoring for toxicity (Heparin, Nitro, Insulin, Cardizem)? @ -[No] Were any procedures done? @ -[No] Diagnosis/symptom? @ -[default] Acute, or Chronic, or Acute on Chronic? @ -[default] Uncomplicated (without systemic symptoms) or Complicated (systemic symptoms)? @ -[default] Side effects of treatment? @ -[No] Exacerbation, Progression, or Severe Exacerbation? @ -[No] Poses a threat to life or bodily function? How? (Chest pain, USA, ID, pneumonia, PE, COPD, DKA, ARF, appy, cholecystitis, CVA, Diverticulitis, Homicidal, Suicidal, threat to staff... and all critical care pts) @ -[No] (Gabriela Andersen) 79 female to the ER for evaluation patient will be admitted for psychiatric illness concern for altered mental status worsening, patient will admit for neuro and psychiatric consult regarding mental state (Jim Singh) - Lab Data Lab Results 10/28/24 10/28/24 10/28/24 Range/Units 18:53 18:53 18:53 WBC 5.81 (4.50-10.00) 10*3/uL RBC 4.18 (4.10-5.20) 10*6/uL Hgb 13.5 (12.0-15.0) g/dL Hct 40.3 (37.2-46.3) % MCV 96.4 (80.0-97.0) fL MCH 32.3 H (27.0-32.0) pg MCHC 33.5 (32.0-37.0) g/dL Plt Count 203 (140-440) 10*3/uL MPV 10.0 (9.5-12.2) fL Immature Gran % (Auto) 0.5 % Neutrophils % 66.5 % Lymphocytes % 23.4 % Monocytes % 8.8 % Eosinophils % 0.5 % Basophils % 0.3 % Immature Gran # 0.03 (0.00-0.04) 10*3/uL Neutrophils # 3.86 (1.80-7.70) 10*3/uL Lymphocytes # 1.36 (0.90-5.00) 10*3/uL Monocytes # 0.51 (0.20-1.00) 10*3/uL Eosinophils # 0.03 L (0.04-0.35) 10*3/uL Basophils # 0.02 (0.00-0.10) 10*3/uL Sodium (137-145) mmol/L Potassium (3.5-5.1) mmol/L Chloride (98-107) mmol/L Carbon Dioxide (22-30) mmol/L Anion Gap mmol/L BUN (7-17) mg/dL Creatinine (0.52-1.04) mg/dL Est GFR (CKD-EPI)AfAm (>60 ml/min/1.73 sqM) Est GFR (CKD-EPI)NonAf (>60 ml/min/1.73 sqM) Glucose (74-99) mg/dL Calcium (8.4-10.2) mg/dL Phosphorus (2.5-4.5) mg/dL Magnesium (1.6-2.3) mg/dL Total Bilirubin (0.2-1.3) mg/dL AST (14-36) U/L ALT (4-34) U/L Alkaline Phosphatase (38-126) U/L Troponin I (0.000-0.034) ng/mL Total Protein (6.3-8.2) g/dL Albumin (3.5-5.0) g/dL Urine Color Colorless Urine Appearance Clear (Clear) Urine pH 6.5 (5.0-8.0) Ur Specific [place] 1.002 (1.001-1.035) Urine Protein Negative (Negative) Urine Glucose (UA) Negative (Negative) Urine Ketones Negative (Negative) Urine Blood Negative (Negative) Urine Nitrite Negative (Negative) Urine Bilirubin Negative (Negative) Urine Urobilinogen <2.0 (<2.0) mg/dL Ur Leukocyte Esterase Trace H (Negative) Urine WBC 3 (0-5) /hpf Urine Bacteria Rare H (None) /hpf Salicylates mg/dL Urine Opiates Screen Not Detected (NotDetected) Ur Oxycodone Screen Not Detected (NotDetected) Urine Methadone Screen Not Detected (NotDetected) Acetaminophen ug/mL Ur Barbiturates Screen Not Detected (NotDetected) U Tricyclic Antidepress Not Detected (NotDetected) Ur Phencyclidine Scrn Not Detected (NotDetected) Ur Amphetamines Screen Not Detected (NotDetected) U Methamphetamines Scrn Not Detected (NotDetected) U Benzodiazepines Scrn Detected H (NotDetected) Urine Cocaine Screen Not Detected (NotDetected) U Marijuana (THC) Screen Not Detected (NotDetected) Serum Alcohol mg/dL 10/28/24 10/28/24 Range/Units 18:53 18:53 WBC (4.50-10.00) 10*3/uL RBC (4.10-5.20) 10*6/uL Hgb (12.0-15.0) g/dL Hct (37.2-46.3) % MCV (80.0-97.0) fL MCH (27.0-32.0) pg MCHC (32.0-37.0) g/dL Plt Count (140-440) 10*3/uL MPV (9.5-12.2) fL Immature Gran % (Auto) % Neutrophils % % Lymphocytes % % Monocytes % % Eosinophils % % Basophils % % Immature Gran # (0.00-0.04) 10*3/uL Neutrophils # (1.80-7.70) 10*3/uL Lymphocytes # (0.90-5.00) 10*3/uL Monocytes # (0.20-1.00) 10*3/uL Eosinophils # (0.04-0.35) 10*3/uL Basophils # (0.00-0.10) 10*3/uL Sodium 139 (137-145) mmol/L Potassium 4.0 (3.5-5.1) mmol/L Chloride 102 (98-107) mmol/L Carbon Dioxide 25 (22-30) mmol/L Anion Gap 12 mmol/L BUN 10 (7-17) mg/dL Creatinine 0.49 L (0.52-1.04) mg/dL Est GFR (CKD-EPI)AfAm >90 (>60 ml/min/1.73 sqM) Est GFR (CKD-EPI)NonAf >90 (>60 ml/min/1.73 sqM) Glucose 96 (74-99) mg/dL Calcium 9.9 (8.4-10.2) mg/dL Phosphorus 2.9 (2.5-4.5) mg/dL Magnesium 2.1 (1.6-2.3) mg/dL Total Bilirubin 1.2 (0.2-1.3) mg/dL AST 41 H (14-36) U/L ALT 28 (4-34) U/L Alkaline Phosphatase 104 (38-126) U/L Troponin I <0.012 (0.000-0.034) ng/mL Total Protein 7.4 (6.3-8.2) g/dL Albumin 4.7 (3.5-5.0) g/dL Urine Color Urine Appearance (Clear) Urine pH (5.0-8.0) Ur Specific [place] (1.001-1.035) Urine Protein (Negative) Urine Glucose (UA) (Negative) Urine Ketones (Negative) Urine Blood (Negative) Urine Nitrite (Negative) Urine Bilirubin (Negative) Urine Urobilinogen (<2.0) mg/dL Ur Leukocyte Esterase (Negative) Urine WBC (0-5) /hpf Urine Bacteria (None) /hpf Salicylates <1.0 mg/dL Urine Opiates Screen (NotDetected) Ur Oxycodone Screen (NotDetected) Urine Methadone Screen (NotDetected) Acetaminophen <10.0 ug/mL Ur Barbiturates Screen (NotDetected) U Tricyclic Antidepress (NotDetected) Ur Phencyclidine Scrn (NotDetected) Ur Amphetamines Screen (NotDetected) U Methamphetamines Scrn (NotDetected) U Benzodiazepines Scrn (NotDetected) Urine Cocaine Screen (NotDetected) U Marijuana (THC) Screen (NotDetected) Serum Alcohol <10 mg/dL Disposition <Gabriela Andersen - Last Filed: 10/28/24 19:00> Is patient prescribed a controlled substance at d/c from ED?: No Time of Disposition: 22:50 <Jim Singh - Last Filed: 10/28/24 22:52> Clinical Impression: Anxiety, Weakness, Altered mental status, Strain of neck muscle Disposition: ADMITTED IP TO THIS HOSP Condition: Fair Referrals: Khushboo Mtz MD [Primary Care Provider] - 1-2 days
[2024-10-28] MEDS: SODIUM CHLORIDE 0.9% 1,000 ML IV ONE (18:09)
[2024-10-28 19:06] LABS: Basophils # (A) 0.02 10*3/uL (0.00-0.10); Basophils % (A) 0.3 %; Eosinophils # (A) 0.03 10*3/uL (0.04-0.35); Eosinophils % (A) 0.5 %; HCT 40.3 % (37.2-46.3); HGB 13.5 g/dL (12.0-15.0); Lymphocytes # (A) 1.36 10*3/uL (0.90-5.00); Lymphocytes % (A) 23.4 %; MCH 32.3 pg (27.0-32.0); MCHC 33.5 g/dL (32.0-37.0); MCV 96.4 fL (80.0-97.0); Monocytes # (A) 0.51 10*3/uL (0.20-1.00); Monocytes % (A) 8.8 %; Neutrophils # (A) 3.86 10*3/uL (1.80-7.70); Neutrophils % (A) 66.5 %; Platelet Count 203 10*3/uL (140-440); RBC 4.18 10*6/uL (4.10-5.20); RDW 12.6 % (11.5-14.5); WBC 5.81 10*3/uL (4.50-10.00)
[2024-10-28 19:16] LABS: ALT 28 U/L (4-34); AST 41 U/L (14-36); Acetaminophen <10.0 ug/mL; African American GFR (CKD) >90 (>60 ml/min/1.73 sqM); Albumin 4.7 g/dL (3.5-5.0); Alkaline Phosphatase 104 U/L (38-126); Anion Gap 12 mmol/L; Blood Urea Nitrogen 10 mg/dL (7-17); Calcium 9.9 mg/dL (8.4-10.2); Carbon Dioxide 25 mmol/L (22-30); Chloride 102 mmol/L (98-107); Glucose 96 mg/dL (74-99); Magnesium 2.1 mg/dL (1.6-2.3); Non-African American GFR(CKD) >90 (>60 ml/min/1.73 sqM); Potassium 4.0 mmol/L (3.5-5.1); Salicylate <1.0 mg/dL; Sodium 139 mmol/L (137-145); Total Protein 7.4 g/dL (6.3-8.2)
[2024-10-28 19:18] LABS: Bacteria,Urine Rare /hpf; Barbiturate Screen,Urine Not Detected (NotDetected); Benzodiazepines Screen,Urine Detected (NotDetected); Bilirubin,Urine Negative (Negative); Blood,Urine Negative (Negative); Color,Urine Colorless; Glucose,Urine (UA) Negative (Negative); Ketones,Urine Negative (Negative); Leukocyte Esterase,Urine Trace (Negative); Nitrite,Urine Negative (Negative); Opiate Screen,Urine Not Detected (NotDetected); Oxycodone Screen, Urine Not Detected (NotDetected); PH, Urine 6.5 (5.0-8.0); Phencyclidine Screen,Urine Not Detected (NotDetected); Protein,Urine Negative (Negative); Specific Gravity,Urine 1.002 (1.001-1.035); Tricyclic Antidepressant,Urine Not Detected (NotDetected); Urn Cannabinoid Scrn Not Detected (NotDetected); Urobilinogen,Urine <2.0 mg/dL (<2.0); WBC,Urine 3 /hpf (0-5)
[2024-10-28] MEDS ORDERED: ONDANSETRON 4 MG/2 ML VIAL IVP PRN (22:48)
[2024-10-28] MEDS ORDERED: NALOXONE 0.4 MG/ML 1 ML VIAL IV PRN (22:48)
[2024-10-28] MEDS ORDERED: LORazepam 1 MG/0.5 ML VIAL IV PRN (22:49)
[2024-10-29] MEDS: LORazepam 1 MG/0.5 ML VIAL IV STA (02:10)
[2024-10-29 06:30] LABS: Basophils # (A) 0.02 10*3/uL (0.00-0.10); Basophils % (A) 0.4 %; Eosinophils # (A) 0.06 10*3/uL (0.04-0.35); Eosinophils % (A) 1.2 %; HCT 36.8 % (37.2-46.3); HGB 12.1 g/dL (12.0-15.0); Lymphocytes # (A) 1.24 10*3/uL (0.90-5.00); Lymphocytes % (A) 23.9 %; MCH 32.0 pg (27.0-32.0); MCHC 32.9 g/dL (32.0-37.0); MCV 97.4 fL (80.0-97.0); Monocytes # (A) 0.49 10*3/uL (0.20-1.00); Monocytes % (A) 9.4 %; Neutrophils # (A) 3.35 10*3/uL (1.80-7.70); Neutrophils % (A) 64.5 %; Platelet Count 193 10*3/uL (140-440); RBC 3.78 10*6/uL (4.10-5.20); RDW 12.8 % (11.5-14.5); WBC 5.19 10*3/uL (4.50-10.00)
[2024-10-29 06:39] LABS: ALT 26 U/L (4-34); AST 34 U/L (14-36); African American GFR (CKD) >90 (>60 ml/min/1.73 sqM); Albumin 3.9 g/dL (3.5-5.0); Alkaline Phosphatase 88 U/L (38-126); Anion Gap 6 mmol/L; Blood Urea Nitrogen 11 mg/dL (7-17); Calcium 9.1 mg/dL (8.4-10.2); Carbon Dioxide 27 mmol/L (22-30); Chloride 109 mmol/L (98-107); Glucose 104 mg/dL (74-99); Magnesium 2.2 mg/dL (1.6-2.3); Non-African American GFR(CKD) 89 (>60 ml/min/1.73 sqM); Potassium 3.8 mmol/L (3.5-5.1); Sodium 142 mmol/L (137-145); Total Protein 6.2 g/dL (6.3-8.2)
[2024-10-29] MEDS: SODIUM CHLORIDE 0.9% 1,000 ML IV SCH (10:18)
[2024-10-29] MEDS: ENOXAPARIN 40 MG/0.4 ML SYRINGE SQ SCH (10:19)
[2024-10-29] MEDS ORDERED: LORazepam 0.5 MG TAB PO PRN (10:27)
--- NOTE | 2024-10-29 14:32 | P.HPIM ---
History of Present Illness H&P Date: 10/29/24 Chief Complaint: Depression with psychotic features HISTORY OF PRESENT ILLNESS: This is an 79-year-old female patient of mine with a previous medical history significant for hypertension and hypertensive heart vascular disease, mixed hyperlipidemia, hypothyroidism, history of burning mouth syndrome, allergic rhinitis, vitamin D deficiency, bilateral tinnitus, anxiety and major depressive disorder, kidney stone, irritable bowel syndrome, history of malignant neoplasm of the left breast status post left lumpectomy in 1999 as well as right lumpectomy for breast cancer and radiation therapy back in 2016 and recent surgery with lumpectomy of the left breast in March 2024 due to her breast cancer as well, patient has been having issues with benzodiazepine w ithdrawal she was taken off Xanax and she was placed on the longer acting benzodiazepine in the form of Ativan 0.5 mg orally once every day as needed however the patient was not able to tolerate the medication very well, eventually she was taken off this medication, and then she has been having issu es with not sleeping well at night, she was having electricity going through her body, associated with a lot of psychotic symptoms, she had visited the emergency department numerous times over the last few weeks, to try to get some help, she ended up coming back to the office multiple times to try to get some help initially she was tried on top of her venlafaxine and Abilify that she could not take, she was offered Seroquel she refused to take, and the patient only takes venlafaxine 37.5 mg orally once every day patient son called yesterday and stated that his mother is not sleeping very well, and she is having issues at home, she was directed to go to the emergency department, I spoke with the emergency room physician stating that the patient will need some help with the mental health unit, I was surprised when he called me back and stated that the nurse did not feel the patient need to be admitted to the mental health unit at this point in time, medically she was stable, because of her presentation I kept her in the hospital and I recommended consultation by psychiatry for further evaluation recommendation for symptoms as the patient is not able to cope very well with her symptoms. REVIEW OF SYSTEMS: Constitutional: No documented fever, no chills, no night sweats. positive for weight change. No weakness, fatigue or lethargy. positive for daytime sleepiness.insomnia EENT: occasional headache. No blurred vision or double vision, no loss of vision. No loss of Hearing, no ringing in the ears, no dizziness. No nasal drainage or congestion. No epistaxis. No sore throat. Lungs: No shortness of breath, no cough, no sputum production. No wheezing. Reports dyspnea with activity. Cardiovascular: No chest pain, no lower extremity edema. No palpitations. No paroxysmal nocturnal dyspnea. No orthopnea. No lightheadedness or dizziness. No syncopal episodes. Abdominal: Reports no abdominal pain. occasional nausea, no vomiting. No diarrhea. No constipation. No bloody or tarry stools reports loss of appetite. Genitourinary: No dysuria, increased frequency, urgency. No urinary retention. Musculoskeletal: No myalgias. No muscle weakness, no gait dysfunction, no frequent falls. No back pain. No neck pain. Integumentary: No wounds, no lesions. No rash or pruritus. No unusual bruising. No change in hair or nails. Neurologic: No aphasia. No facial droop. No change in mentation. No head injury. No headache. No paralysis. No paresthesia. Psychiatric: positive for depression. positive for anxiety. positive for mood swings. Endocrine: No abnormal blood sugars. positive for weight change. PAST MEDICAL HISTORY: Hypertension and hypertensive cardiovascular disease. Mixed hyperlipidemia. Hypothyroidism. Burning mouth syndrome. Allergic rhinitis. Vitamin D deficiency. Tinnitus. Major depressive disorder with psychotic feature Anxiety. Irritable bowel syndrome with constipation Osteoarthritis of the knee. Malignant neoplasm of the left breast status post lumpectomy March 2024. PAST SURGICAL HISTORY: Bilateral cataract surgery. Tonsillectomy. Left lumpectomy for breast cancer 1999 Right lumpectomy for breast cancer with radiation 2016 Left lumpectomy for breast cancer March 2024 Complete hysterectomy due to endometriosis 1974 Colonoscopy 2020 Left arthroscopic knee surgery 2017 Left total knee arthroplasty 2019 Left ORIF of the left heel 2000 SOCIAL HISTORY: Patient used to smoke about a pack every day, she quit about 10 years ago, she denies any alcohol ingestion, she denies any drug use or abuse, she denies any marijuana use or abuse. She lives with her FAMILY HISTORY: Father at the age of 76 from pancreatic cancer mother at the age of 87 from [place] and coronary artery disease, patient had 1 sister who at the age of 59 from breast cancer patient has 1 son 44-year-old alive and well. PHYSICAL EXAMINATION: General: 79-year-old female laying down in bed in no distress HEENT: Head is atraumatic, normocephalic, pupils were equal round reactive to light and recommendation, extraocular muscle movement were intact, sclera nonicteric, conjunctivae were pale, mucous membranes of the mouth are somewhat dry. Neck: Supple, no JVP, normal carotid upstroke bilaterally, no lymphadenopathy. Chest: Decreased breath sounds at the bases, few rhonchi, no expiratory wheezes, no chest wall tenderness, no intercostal retractions. Heart: First heart sound is normal, second heart sounds normal there are systolic ejection murmur 2 over systolic in the left sternal border. Abdomen: Soft, nontender, nondistended, positive bowel sounds. Extremities: There is no edema no calf tenderness DP +2 bilaterally. Neurologic examination: Patient is awake alert and oriented x3, cranial nerves II-12 appear grossly intact, muscle power were 5 out of 5 in upper extremities and 5 out of 5 in bilateral lower extremities, deep tendon reflexes normal bilaterally. ASSESSMENT AND PLAN: 1. Major depressive disorder with psychotic features. Continue patient on venlafaxine 37.5 mg once every day, I will consult psychiatry for further recommendation and how to proceed with her care at this point in time. 2. Hypertension and hypertensive cardiovascular disease continue patient on losartan 25 mg orally once every day, continue atenolol 25 mg orally twice every day monitor the patient blood pressure very closely. 3. Mixed hyperlipidemia. Continue atorvastatin 40 mg once every day, Zetia 10 mg once every day, monitor lipid panel, keep LDL 55-70. 4. Hypothyroidism. Continue patient on levothyroxine 25 mcg orally once every day. 5. Allergic rhinitis. Continue patient on levocetirizine 5 mg at bedtime 6. GERD with esophagitis. Continue omeprazole 20 mg once every day as well as famotidine 20 mg at bedtime. 7. Osteoarthritis patient has been on meloxicam 15 mg orally once every day as needed. 8. Burning mouth syndrome. Continue venlafaxine 37.5 mg orally once every day. 9. Breast cancer status post left lumpectomy March 2024 stable at this time. 10. DVT prophylaxis. Continue patient on Lovenox 40 mg subcutaneously every 24 hours. 11. GI prophylaxis. Continue patient on PPI as well as Pepcid. 12. Admit as an observation. 13. Patient is a full code. Past Medical History Past Medical History: Cancer, Hyperlipidemia, Hypertension, Thyroid Disorder Additional Past Medical History / Comment(s): "smell disorder" (unknown name), cant tolerate string smells. Bilat Breast cancer, Right 1998, Radiation. Left 2012 ?, surgery done, no other treatment, pt declined tx History of Any Multi-Drug Resistant Organisms: None Reported Past Surgical History: Breast Surgery Additional Past Surgical History / Comment(s): "Blocked small intestine 2 years ago.", kidney stones removed 08/2023, multiple lithotripsy procedures. Bilat breast cancer lumpectomy. Past Anesthesia/Blood Transfusion Reactions: No Reported Reaction Additional Past Anesthesia/Blood Transfusion Reaction / Comment(s): heart stopped during kidney surgery- had kidney infection Past Psychological History: Anxiety, Depression Smoking Status: Former smoker Past Alcohol Use History: None Reported Past Drug Use History: None Reported - Past Family History Mother Family Medical History: No Reported History Father Family Medical History: Cancer, Myocardial Infarction ([place]) Additional Family Medical History / Comment(s): pancreatic cancer Medications and Allergies Home Medications Medication Instructions Recorded Confirmed Type ALPRAZolam [Xanax] 1 mg PO BID 06/15/23 03/31/24 History Atorvastatin [Lipitor] 40 mg PO HS 06/15/23 03/31/24 History Cyanocobalamin [Vitamin B-12] 500 mcg PO DAILY 06/15/23 03/27/24 History Ezetimibe [Zetia] 10 mg PO HS 06/15/23 03/31/24 History Levothyroxine Sodium [Synthroid] 25 mcg PO DAILY 06/15/23 03/31/24 History Losartan Potassium 50 mg PO DAILY 06/15/23 03/31/24 History Venlafaxine HCl [Effexor] 37.5 mg PO QAM 06/15/23 03/31/24 History atenoloL [Tenormin] 50 mg PO DAILY 06/15/23 03/31/24 History Otc Nexium 1 tab PO DIRECTED PRN 03/27/24 03/27/24 History atenoloL [Atenolol] 25 mg PO HS 03/27/24 03/31/24 History Acetaminophen-Codeine 300-30mg 1 tab PO Q4H PRN 3 Days #6 tablet 03/31/24 Rx [Tylenol w/codeine #3] ALPRAZolam [Xanax] 1 mg PO BID 3 Days #6 tab 09/29/24 Rx Cephalexin [Keflex] 500 mg PO Q6HR #40 cap 10/08/24 Rx Nitrofurantoin Monohyd/M-Cryst 100 mg PO Q12HR #14 cap 10/22/24 Rx [Macrobid] Allergies Allergy/AdvReac Type Severity Reaction Status Date / Time gentamicin Allergy Anaphylaxis Verified 10/25/24 16:17 morphine AdvReac Nausea & Verified 10/25/24 16:17 Vomiting Physical Exam Vitals: Vital Signs Temp Pulse Pulse Resp BP BP Pulse Ox 10/29/24 02:00 98 F 69 17 142/86 98 10/28/24 22:54 59 L 18 120/72 98 10/28/24 20:53 63 18 139/73 99 10/28/24 16:18 97.9 F 72 20 146/74 98 Intake and Output 10/28/24 10/28/24 10/29/24 14:59 22:59 06:59 Other: Weight 65.771 kg Results CBC & Chem 7: 10/29/24 05:44 10/29/24 05:44 Labs: Abnormal Lab Results - Last 24 Hours (Table) 10/28/24 10/28/24 10/28/24 Range/Units 18:53 18:53 18:53 MCH 32.3 H (27.0-32.0) pg Eosinophils # 0.03 L (0.04-0.35) 10*3/uL Creatinine (0.52-1.04) mg/dL AST (14-36) U/L Ur Leukocyte Esterase Trace H (Negative) Urine Bacteria Rare H (None) /hpf U Benzodiazepines Scrn Detected H (NotDetected) 10/28/24 Range/Units 18:53 MCH (27.0-32.0) pg Eosinophils # (0.04-0.35) 10*3/uL Creatinine 0.49 L (0.52-1.04) mg/dL AST 41 H (14-36) U/L Ur Leukocyte Esterase (Negative) Urine Bacteria (None) /hpf U Benzodiazepines Scrn (NotDetected)
[2024-10-29] MEDS: DOCUSATE 100 MG CAP PO SCH (15:19)
[2024-10-29] MEDS: CYANOCOBALAMIN 1,000 MCG/ML 1 ML VIAL IM ONE (17:22)
[2024-10-29] MEDS: ARTIFICIAL TEARS-HYPROMELLOSE DROPS 15 ML BTL BOTH EYES PRN (18:19)
--- NOTE | 2024-10-29 19:26 | P.CNNES ---
History of Present Illness Consult date: 10/29/24 Requesting physician: Jim Singh Reason for Consult: AMS History of Present Illness: Patient is a 79-year-old right-handed female with history of bipolar depression, came to the hospital yesterday at 3:23 PM with altered mental status. Patient states that she has history of depression since her son was born 48 years ago. She has had depression off and on. She states that she feels like it is "f alling into a hole and now crawling up". Patient is also having some social issues, as her son does not want to be around her and does not go along with her. He states that she sees things which are not real. She states that he yells at her and would not discuss anything. He sees her about once every couple months. Patient also mentions that she is having issues with her , who is upset because of her sickness. She states that she has history of about 90 procedures in her lifetime for kidney stone. Her becomes upset saying that everything is going bad and they get into arguments easily. She also appears to be concerned that things are taken away from her home. She states that she finds things that are misplaced or taken away. She states that she had bundles of charge decorations and which are all gone now. At present she rates her depression 4-5 on a scale of 1-10. Patient states her paternal grandmother also suffered from severe depression. Patient herself had undergone electroconvulsive therapy about 14 sessions in 2001. She then states that she used to be a [employer] in 1963 or [place]. She also mentioned that she has had falls in May and then July 2024. She had another fall but that was accidental while gardening. She denies any other neurological symptoms. Vital signs on arrival blood pressure 146/74, pulse rate 72, temperature 97.9 Blood test shows normal CBC, CMP, UA and urine drug screen positive for benzodiazepine. Blood alcohol level negative. CT head revealed no acute intracranial process. Nonspecific white matter changes, likely secondary to chronic small vessel ischemic disease. CT of the cervical spine showed no ev idence of cervical spine fracture. Mild to moderate multilevel degenerative disc disease. I personally reviewed CT head, agree with the findings.. Patient denies any tobacco use, alcohol. She has hypertension. Home medications include Effexor 37.5 mg daily, Lipitor 40 mg, atenolol 50 mg, losartan, levothyroxine, Zetia, atenolol, nitrofurantoin, Xyzal and Ativan 0.5 mg daily as needed Review of Systems All pertinent positive and negative review of systems mentioned in the HPI, otherwise unremarkable. Past Medical History Past Medical History: Cancer, Hyperlipidemia, Hypertension, Thyroid Disorder Additional Past Medical History / Comment(s): "smell disorder" (unknown name), cant tolerate string smells. Bilat Breast cancer, Right 1998, Radiation. Left 2012 ?, surgery done, no other treatment, pt declined tx History of Any Multi-Drug Resistant Organisms: None Reported Past Surgical History: Breast Surgery Additional Past Surgical History / Comment(s): "Blocked small intestine 2 years ago.", kidney stones removed 08/2023, multiple lithotripsy procedures. Bilat breast cancer lumpectomy. Past Anesthesia/Blood Transfusion Reactions: No Reported Reaction Additional Past Anesthesia/Blood Transfusion Reaction / Comment(s): heart stopped during kidney surgery- had kidney infection Past Psychological History: Anxiety, Depression Smoking Status: Former smoker Past Alcohol Use History: None Reported Past Drug Use History: None Reported - Past Family History Mother Family Medical History: No Reported History Father Family Medical History: Cancer, Myocardial Infarction ([place]) Additional Family Medical History / Comment(s): pancreatic cancer Medications and Allergies Home Medications Medication Instructions Recorded Confirmed Type Atorvastatin [Lipitor] 40 mg PO HS 06/15/23 10/29/24 History Ezetimibe [Zetia] 10 mg PO HS 06/15/23 10/29/24 History Levothyroxine Sodium [Synthroid] 25 mcg PO DAILY 06/15/23 10/29/24 History Losartan Potassium 50 mg PO DAILY 06/15/23 10/29/24 History Venlafaxine HCl [Effexor] 37.5 mg PO DAILY 06/15/23 10/29/24 History atenoloL [Tenormin] 50 mg PO DAILY 06/15/23 10/29/24 History atenoloL [Atenolol] 25 mg PO HS 03/27/24 10/29/24 History Nitrofurantoin Monohyd/M-Cryst 100 mg PO Q12HR #14 cap 10/22/24 10/29/24 Rx [Macrobid] LORazepam [Ativan] 0.5 mg PO DAILY PRN 10/29/24 10/29/24 History Levocetirizine Dihydrochloride 5 mg PO BID 10/29/24 10/29/24 History [Xyzal] Allergies Allergy/AdvReac Type Severity Reaction Status Date / Time gentamicin Allergy Anaphylaxis Verified 10/25/24 16:17 morphine AdvReac Nausea & Verified 10/25/24 16:17 Vomiting Physical Examination - Vital Signs Vital Signs: Vital Signs Temp Pulse Pulse Resp BP BP Pulse Ox 10/29/24 02:00 98 F 69 17 142/86 98 10/28/24 22:54 59 L 18 120/72 98 10/28/24 20:53 63 18 139/73 99 10/28/24 16:18 97.9 F 72 20 146/74 98 Intake and Output 10/28/24 10/29/24 10/29/24 22:59 06:59 14:59 Other: Voiding Method Toilet # Voids 2 Weight 65.771 kg Patient is an elderly female, in no acute distress. Patient is alert awake oriented to time place and person. Patient knows it is 10/29/2024 and that she is in [facility] imported on [place] and that she lives in [facility]. Speech and language functions are normal. Patient can name and repeat very well. No aphasia or dysarthria. Attention, concentration and fund of knowledge is adequate. On cranial nerve examination, pupils are equal, round and reacting to light, visual rojas are full on confrontation, with no neglect on double simultaneous stimulation. Extraocular muscles are intact with no nystagmus. Face is symmetric, tongue protrudes to the midline. Palatal elevation and sensation normal, hearing and shoulder shrug normal, facial sensation normal. On muscle strength testing, there is no pronator drift and the strength is normal in arms and legs distally and proximally, except hip flexion which is about 5-on the right, normal on the left. Deep tendon reflexes are symmetric 1+ in the arms and legs. Sensory to touch is equal with no neglect on double simultaneous stimulation. Cerebellar function showed no ataxia for [id number] testing. No dysdia dochokinesia. No ataxia for [id number] testing on either side. Tone and bulk of muscles normal. Gait deferred.. On general examination, there is no carotid bruit or murmur, S1-S2 audible. Chest is clear on consultation. Abdomen is soft nontender. No organomegaly, bowel sounds present. Peripheral pulses are present. No peripheral edema. Results - Laboratory Findings CBC and BMP: 10/29/24 05:44 10/29/24 05:44 Abnormal Lab Findings: Abnormal Labs 10/28/24 10/28/24 10/28/24 18:53 18:53 18:53 RBC Hct MCV MCH 32.3 H Eosinophils # 0.03 L Chloride Creatinine Glucose AST Total Protein Ur Leukocyte Esterase Trace H Urine Bacteria Rare H U Benzodiazepines Scrn Detected H 10/28/24 10/29/24 10/29/24 18:53 05:44 05:44 RBC 3.78 L Hct 36.8 L MCV 97.4 H MCH Eosinophils # Chloride 109 H Creatinine 0.49 L Glucose 104 H AST 41 H Total Protein 6.2 L Ur Leukocyte Esterase Urine Bacteria U Benzodiazepines Scrn Assessment and Plan Assessment: * Altered mental status, likely due to underlying psychiatric condition. Patient has been diagnosed with major depressive disorder with psychotic features. Neurological examination is normal. * Hypertension * Hyperlipidemia * Hypothyroidism * History of breast cancer Plan: * Patient's neurological examination is normal. * No other neurological workup indicated. * Patient to follow-up with a psychiatrist. * Patient's B12 349, MMA 0.12, folate 12.2, TSH 0.688, A1c 5.7 and LDL 59. We will start B12 500 mcg orally daily for borderline B12. * Neurologically clear for discharge. We will sign off. Thank you for the consult.
[2024-10-29] MEDS: ATORVASTATIN 40 MG TAB PO SCH (20:22)
[2024-10-29] MEDS: EZETIMIBE 10 MG TAB PO SCH (20:23)
[2024-10-30] MEDS: LEVOTHYROXINE 25 MCG TAB PO SCH (06:12)
[2024-10-30] MEDS: LORATADINE 10 MG TAB PO SCH (08:31)
[2024-10-30] MEDS: LOSARTAN 50 MG TAB PO SCH (08:31)
[2024-10-30] MEDS: VENLAFAXINE HCL 37.5 MG TAB PO SCH (08:31)
--- NOTE | 2024-10-30 13:14 | P.PN ---
Subjective Progress Note Date: 10/30/24 HISTORY OF PRESENT ILLNESS: This is an 79-year-old female patient of [facility] with a previous medical history significant for hypertension and hypertensive heart vascular disease, mixed hyperlipidemia, hypothyroidism, history of burning mouth syndrome, allergic rhinitis, vitamin D deficiency, bilateral tinnitus, anxiety and major depressive disorder, kidney stone, irritable bowel syndrome, history of malignant neoplasm of the left breast status post left lumpectomy in 1999 as well as right lumpectomy for breast cancer and radiation therapy back in 2016 and recent surgery with lumpectomy of the left breast in March 2024 due to her breast cancer as well, patient has been having issues with benzodiazepine withdrawal she was taken off Xanax and she was placed on the longer acting benzodiazepine in the form of Ativan 0.5 mg orally once every day as needed however the patient was not able to tolerate the medication very well, eventually she was taken off this medication, and then she has been having issues with not sleeping well at night, she was having electricity going through her body, associated with a lot of psychotic symptoms, she had visited the emergency department numerous times over the last few weeks, to try to get some help, she ended up coming back to the office multiple times to try to get some help initially she was tried on top of her venlafaxine and Abilify that she could not take, she was offered Seroquel she refused to take, and the patient only takes venlafaxine 37.5 mg orally once every day patient son called yesterday and stated that his mother is not sleeping very well, and she is having issues at home, she was directed to go to the emergency department, I spoke with the emergency room physician stating that the patient will need some help with the mental health unit, I was surprised when he called me back and stated that the nurse did not feel the patient need to be admitted to the mental health unit at this point in time, medically she was stable, because of her presentation I kept her in the hospital and I recommended consultation by yakelin nair for further evaluation recommendation for symptoms as the patient is not able to cope very well with her symptoms. 10/30: Patient is laying down in bed in no apparent distress, she stated that she is not feeling well at all today, she denies any chest pain, she has no shortness of breath, she stated that she was eating a chicken sandwich and she felt that the piece of chicken get stuck in her throat, she does not appear to have a significant amount of drooling or any acute hypoxemia, we will consider surgery for possible EGD to make sure the patient does not need to have an EGD to remove the piece of meat, patient still waiting to see the psychiatrist at this point in time, she has been on venlafaxine 37.5 mg once every day, she continues to be very anxious, her urine drug screen is showing benzodiazepine, and the patient was taken off of this recently, I will follow-up with the ligia sandra very closely, we will await general surgery consultation for possible EGD to be done the soonest possible. REVIEW OF SYSTEMS: Constitutional: No documented fever, no chills, no night sweats. positive for weight change. No weakness, fatigue or lethargy. positive for daytime sleepiness.insomnia EENT: occasional headache. No blurred vision or double vision, no loss of vision. No loss of Hearing, no ringing in the ears, no dizziness. No nasal drainage or congestion. No epistaxis. No sore throat. Lungs: No shortness of breath, no cough, no sputum production. No wheezing. Reports dyspnea with activity. Cardiovascular: No chest pain, no lower extremity edema. No palpitations. No paroxysmal nocturnal dyspnea. No orthopnea. No lightheadedness or dizziness. No syncopal episodes. Abdominal: Reports no abdominal pain. occasional nausea, no vomiting. No diarrhea. No constipation. No bloody or tarry stools reports loss of appetite. She feels a piece of chicken stuck in her esophagus Genitourinary: No dysuria, increased frequency, urgency. No urinary retention. Musculoskeletal: No myalgias. No muscle weakness, no gait dysfunction, no frequent falls. No back pain. No neck pain. Integumentary: No wounds, no lesions. No rash or pruritus. No unusual bruising. No change in hair or nails. Neurologic: No aphasia. No facial droop. No change in mentation. No head injury. No headache. No paralysis. No paresthesia. Psychiatric: positive for depression. positive for anxiety. positive for mood swings. Endocrine: No abnormal blood sugars. positive for weight change. PHYSICAL EXAMINATION: General: 79-year-old female laying down in bed in no distress HEENT: Head is atraumatic, normocephalic, pupils were equal round reactive to light and recommendation, extraocular muscle movement were intact, sclera nonicteric, conjunctivae were pale, mucous membranes of the mouth are somewhat dry. Neck: Supple, no JVP, normal carotid upstroke bilaterally, no lymphadenopathy. Chest: Decreased breath sounds at the bases, few rhonchi, no expiratory wheezes, no chest wall tenderness, no intercostal retractions. Heart: First heart sound is normal, second heart sounds normal there are systolic ejection murmur 2 over systolic in the left sternal border. Abdomen: Soft, nontender, nondistended, positive bowel sounds. Extremities: There is no edema no calf tenderness DP +2 bilaterally. Neurologic examination: Patient is awake alert and oriented x3, cranial nerves II-12 appear grossly intact, muscle power were 5 out of 5 in upper extremities and 5 out of 5 in bilateral lower extremities, deep tendon reflexes normal bilaterally. ASSESSMENT AND PLAN: 1. Major depressive disorder with psychotic features. Continue patient on venlafaxine 37.5 mg once every day, I will consult psychiatry for further recommendation and how to proceed with her care at this point in time. 2. Hypertension and hypertensive cardiovascular disease continue patient on losartan 25 mg orally once every day, continue atenolol 25 mg orally twice every day monitor the patient blood pressure very closely. 3. Mixed hyperlipidemia. Continue atorvastatin 40 mg once every day, Zetia 10 mg once every day, monitor lipid panel, keep LDL 55-70. 4. Hypothyroidism. Continue patient on levothyroxine 25 mcg orally once every day. 5. Allergic rhinitis. Continue patient on levocetirizine 5 mg at bedtime 6. GERD with esophagitis. Continue omeprazole 20 mg once every day as well as famotidine 20 mg at bedtime. 7. Osteoarthritis patient has been on meloxicam 15 mg orally once every day as needed. 8. Burning mouth syndrome. Continue venlafaxine 37.5 mg orally once every day. 9. Breast cancer status post left lumpectomy March 2024 stable at this time. 10. DVT prophylaxis. Continue patient on Lovenox 40 mg subcutaneously every 24 hours. 11. GI prophylaxis. Continue patient on PPI as well as Pepcid. 12. Significant dysphagia due to a piece of chicken stuck in her esophagus. Consult surgery for possible EGD with Dr. Tenorio 13. Further recommendations to follow the patient condition and the underwriting consultant recommendations. Objective - Vital Signs Vital signs: Vital Signs Temp 98.1 F 10/30/24 07:13 Pulse 59 L 10/30/24 07:13 Resp 15 10/30/24 08:31 BP 114/62 10/30/24 07:13 Pulse Ox 99 10/30/24 07:13 FiO2 Intake & Output 10/29/24 10/30/24 10/30/24 18:59 06:59 18:59 Intake Total 720 Balance 720 Weight 65.771 kg Intake: Oral 720 Other: Voiding Method Toilet # Voids 0 4 - Labs CBC & Chem 7: 10/29/24 05:44 10/29/24 05:44
--- NOTE | 2024-10-30 15:37 | P.CN ---
Psychiatric Consult - . Consult date: 10/30/24 Consult:: 10/30/24 15:27 IDENTIFYING DATA: This patient is a 79-year-old female currently living with her and retired REASON FOR REFERRAL: Psychiatry was consulted for medication management HISTORY OF PRESENT ILLNESS: The patient presented to the hospital due to feeling not well. Recently patient was taken off of Xanax 0.5 mg at night and placed on Ativan 0.5 mg and noted that her symptoms returned of burning nose and mouth as well as trouble swallowing. She notes that in the past she had been on over 5 mg and most recently 0.5 mg 3 times daily back in November 2023.. At this time patient denies any suicidal or homical ideations, intent or plan. She notes that her anxiety symptoms when she does have panic attacks include shaking, burning and lasting all day. She notes her first problems with mental health was and becoming severely depressed. She notes that depression has waxed and waned throughout her lifetime. She is currently on Effexor 37.5 mg and notes that she is getting brain zaps. Most recently she rates her depression 6/10 and her anxiety 8/10 with 10 being worse. She notes over the last 4 days she has not been sleeping. She notes no energy, appetite or concentration. She feels helpless and has been crying. She notes feelings of guilt and shame. She denies any suicidal or homicidal ideations. notes that there are firearms in the house but they are unloaded. He notes that she is concerned about the medications and he feels that she is on too many. PAST PSYCHIATRIC HISTORY: Patient has a a history of Major depressive disorder and panic attacks. Effexor 37.5 and Ativan 0.5 once daily. Past history of Xanax for 8 years, Lexapro. Patient has over 3 prior admissions for depression. The patient currently does not have a mental health provider. The patient denies any prior suicide attempts. The patient has never had psychotherapy but has been with a psychiatrist in the past. She denies any childhood abuse or legal problems in her life. PAST MEDICAL HISTORY: As per EMR. ALLERGIES: as per EMR. CHEMICAL DEPENDENCY HISTORY: as per HPI. FAMILY PSYCHIATRIC/SUBSTANCE USE HISTORY: Denies SOCIAL HISTORY: Patient was born and raised in [place] and notes that her childhood was "okay". 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 She has 1 son and 2 grandchildren. She notes that she completed high school at some community college with average grades. She notes that she was raised [employer]. She denies any service. MENTAL STATUS EXAM: General Appearance: Patient appears to be stated age is alert, pleasant, and cooperative. Patient appears to have fair hygiene and grooming wearing hospital gown with fair eye contact. Behavior: Patient is calmly lying in bed without any agitated behavior. Speech: Patient's speech is fluent and nonpressured. Mood/Affect: Patient reports their mood is "anxious", affect is congruent Suicidality/Homicidality: Patient denies having any suicidal or homicidal ideation intent or plan. Perceptions: Patient denies any visual hallucinations and denies any auditory hallucinations Though content/process: There is no evidence of any delusional thought content and thought process is linear and goal-directed. Memory and concentration: AOX3, grossly intact for the purposes of this session. Can spell "WORLD" backwards Judgment and insight: Fair-Fair Diagnoses: Major depressive disorder moderate Generalized anxiety disorder R/O Serotonin withdrawal syndrome Psychosomatic PLAN: -At this time patient DOES NOT meet criteria for inpatient psychiatric admission. -Would recommend the following medication changes/additions: Recommendations Restart patient's Xanax 0.5 mg at night for anxiety Continue venlafaxine 37.5 mg once daily in order to prevent further sensations of serotonin withdraw. Outpatient provider should take patient off of venlafaxine and possibly more of a long-acting agent such as Prozac. -Can discontinue 1:1 sitter at this time as patient is not currently an imminent threat to themselves -rehabilitation caseworker to provide patient with outpatient mental health/psychiatry resources for appropriate follow up upon discharge (patient's and patient highly demanded to be set up with a psychiatrist on an outpatient basis) -Communicated plan to patient's nurse -Psychiatry will sign off at this time -Please contact with any questions.
[2024-10-30 15:38] VITALS: RESP 16
--- NOTE | 2024-10-30 17:04 | P.GSCN ---
History of Present Illness Consult date: 10/30/24 Reason for Consult: Dysphagia, constipation History of present illness: 79-year-old female known to our service from previous breast cancer treatment. Patient apparently today was having some difficulty swallowing a chicken sandwich. She was concerned it was stuck. No longer feels that way. Tolerating liquids since that occurred. Patient also describes constipation going on for the last few weeks. She has moved her bowels a few small times during this hospital stay. Denies abdominal pain. Review of Systems The patient denies any acute changes in vision or hearing, no chest pain or shortness of breath, no dysuria or hematuria, no headache, no runny nose, no rectal bleeding or melena, no unexplained weight loss Past Medical History Past Medical History: Cancer, Hyperlipidemia, Hypertension, Thyroid Disorder Additional Past Medical History / Comment(s): "smell disorder" (unknown name), cant tolerate string smells. Bilat Breast cancer, Right 1998, Radiation. Left 2012 ?, surgery done, no other treatment, pt declined tx History of Any Multi-Drug Resistant Organisms: None Reported Past Surgical History: Breast Surgery Additional Past Surgical History / Comment(s): "Blocked small intestine 2 years ago.", kidney stones removed 08/2023, multiple lithotripsy procedures. Bilat breast cancer lumpectomy. Past Anesthesia/Blood Transfusion Reactions: No Reported Reaction Additional Past Anesthesia/Blood Transfusion Reaction / Comm: heart stopped during kidney surgery- had kidney infection Past Psychological History: Anxiety, Depression Smoking Status: Former smoker Past Alcohol Use History: None Reported Past Drug Use History: None Reported - Past Family History Mother Family Medical History: No Reported History Father Family Medical History: Cancer, Myocardial Infarction ([place]) Additional Family Medical History / Comment(s): pancreatic cancer Medications and Allergies Home Medications Medication Instructions Recorded Confirmed Type Atorvastatin [Lipitor] 40 mg PO HS 06/15/23 10/29/24 History Ezetimibe [Zetia] 10 mg PO HS 06/15/23 10/29/24 History Levothyroxine Sodium [Synthroid] 25 mcg PO DAILY 06/15/23 10/29/24 History Losartan Potassium 50 mg PO DAILY 06/15/23 10/29/24 History Venlafaxine HCl [Effexor] 37.5 mg PO DAILY 06/15/23 10/29/24 History atenoloL [Tenormin] 50 mg PO DAILY 06/15/23 10/29/24 History atenoloL [Atenolol] 25 mg PO HS 03/27/24 10/29/24 History Nitrofurantoin Monohyd/M-Cryst 100 mg PO Q12HR #14 cap 10/22/24 10/29/24 Rx [Macrobid] LORazepam [Ativan] 0.5 mg PO DAILY PRN 10/29/24 10/29/24 History Levocetirizine Dihydrochloride 5 mg PO BID 10/29/24 10/29/24 History [Xyzal] Allergies Allergy/AdvReac Type Severity Reaction Status Date / Time gentamicin Allergy Anaphylaxis Verified 10/25/24 16:17 morphine AdvReac Nausea & Verified 10/25/24 16:17 Vomiting Surgical - Exam Vital Signs Temp Pulse Resp BP Pulse Ox 97.9 F 72 20 146/74 98 10/28/24 16:18 10/28/24 16:18 10/28/24 16:18 10/28/24 16:18 10/28/24 16:18 Physical exam: General: Well-developed, well-nourished HEENT: Normocephalic, sclerae nonicteric Abdomen: Nontender, nondistended Extremities: No edema Neuro: Alert and oriented Results - Labs 10/29/24 05:44 10/29/24 05:44 Assessment and Plan (1) Dysphagia Narrative/Plan: Patient was having dysphagia earlier. That is resolved. Will add lactulose for complaints of constipation. Continue psychiatric workup. Current Visit: Yes Status: Acute Code(s): R13.10 - DYSPHAGIA, UNSPECIFIED SNOMED Code(s): 41040150
[2024-10-30] MEDS: LACTULOSE 20 GM/30 ML CUP PO SCH (20:46)
[2024-10-31 07:58] VITALS: BP 129/75; PULSE 61; TEMP 98.1
[2024-10-31 08:57] LABS: Basophils # (A) 0.02 X 10*3/uL (0.00-0.10); Basophils % (A) 0.5 %; Eosinophils # (A) 0.12 X 10*3/uL (0.04-0.35); Eosinophils % (A) 2.7 %; HCT 38.3 % (37.2-46.3); HGB 12.2 g/dL (12.0-15.0); Immature Grans, Automated 0.50 %; Lymphocytes # (A) 1.14 X 10*3/uL (0.90-5.00); Lymphocytes % (A) 25.8 %; MCH 31.4 pg (27.0-32.0); MCHC 31.9 g/dL (32.0-37.0); MCV 98.7 FL (80.0-97.0); Monocytes # (A) 0.53 X 10*3/uL (0.20-1.00); Monocytes % (A) 12.0 %; NRBC Per 100 WBC 0 X 10*3/uL (0.00-0.01); Neutrophils # (A) 2.59 X 10*3/uL (1.80-7.70); Neutrophils % (A) 58.5 %; Platelet Count 192 X 10*3/uL (140-440); RBC 3.88 X 10*6/uL (4.10-5.20); RDW 13.0 % (11.5-14.5); WBC 4.42 X 10*3/uL (4.50-10.00)
[2024-10-31 09:18] LABS: ALT 31 U/L (8-44); AST 37 U/L (13-35); Albumin 3.8 g/dL (3.8-4.9); Albumin/Globulin Ratio 1.90 Ratio (1.60-3.17); Alkaline Phosphatase 83 U/L (41-126); Anion Gap 9.40 mmol/L (4.00-12.00); BUN/Creat Ratio 14.86 Ratio (12.00-20.00); Blood Urea Nitrogen 10.4 mg/dL (9.0-27.0); Calcium 8.7 mg/dL (8.7-10.3); Carbon Dioxide 23.6 mmol/L (21.6-31.8); Chloride 108 mmol/L (96-109); Globulin 2.0 g/dL (1.6-3.3); Glucose 95 mg/dL (70-110); Potassium 3.8 mmol/L (3.5-5.5); Sodium 141 mmol/L (135-145); Total Protein 5.8 g/dL (6.2-8.2)
--- NOTE | 2024-10-31 13:14 | P.PN ---
Subjective Progress Note Date: 10/31/24 Principal diagnosis: Dysphagia, constipation Patient doing better today. Had multiple stools. Feels a bit gassy. No nausea or vomiting. No further dysphagia. Objective - Vital Signs Vital signs: Vital Signs Temp 98.1 F 10/31/24 07:05 Pulse 61 10/31/24 07:05 Resp 16 10/31/24 07:05 BP 129/75 10/31/24 07:05 Pulse Ox 98 10/31/24 07:05 FiO2 Intake & Output 10/30/24 10/31/24 10/31/24 18:59 06:59 18:59 Intake Total 720 118 Balance 720 118 Intake: Oral 720 118 Other: Voiding Method Toilet Toilet # Voids 2 - Exam Abdomen: Soft, nontender, nondistended - Labs CBC & Chem 7: 10/31/24 05:29 10/31/24 05:29 Labs: Abnormal Lab Results - Last 24 Hours (Table) 10/31/24 10/31/24 Range/Units 05:29 05:29 WBC 4.42 L (4.50-10.00) X 10*3/uL RBC 3.88 L (4.10-5.20) X 10*6/uL MCV 98.7 H (80.0-97.0) FL MCHC 31.9 L (32.0-37.0) g/dL AST 37 H (13-35) U/L Total Protein 5.8 L (6.2-8.2) g/dL Assessment and Plan (1) Dysphagia Narrative/Plan: Patient doing well at this time. Apparently she is being discharged. That seems quite reasonable. Follow-up if any GI symptoms redevelop. Current Visit: Yes Status: Acute Code(s): R13.10 - DYSPHAGIA, UNSPECIFIED SNOMED Code(s): 66250532
[2024-10-31] MEDS ORDERED: ALPRAZolam 0.5 MG TAB PO SCH (21:00)
== END 2024-10-31 13:28 | disposition home health service (06) ==
LOC: EC 15:23 → 6NMEDSUR 22:49
PROVIDERS: ADMIT Internal Medicine; ATTEND Internal Medicine
DX: F32.3 Major depressive disorder, single episode, severe with psychotic features (principal); R13.10 Dysphagia, unspecified; E78.2 Mixed hyperlipidemia; F41.1 Generalized anxiety disorder; I11.9 Hypertensive heart disease without heart failure; F45.9 Somatoform disorder, unspecified; R53.1 Weakness; J30.9 Allergic rhinitis, unspecified; E55.9 Vitamin D deficiency, unspecified; H93.13 Tinnitus, bilateral; K58.1 Irritable bowel syndrome with constipation; M17.10 Unilateral primary osteoarthritis, unspecified knee; K14.6 Glossodynia; E03.9 Hypothyroidism, unspecified; K21.00 Gastro-esophageal reflux disease with esophagitis, without bleeding; S16.1XXA Strain of muscle, fascia and tendon at neck level, initial encounter; Z85.3 Personal history of malignant neoplasm of breast; Z87.440 Personal history of urinary (tract) infections; Z87.891 Personal history of nicotine dependence; Z79.1 Long term (current) use of non-steroidal anti-inflammatories (NSAID); Z79.899 Other long term (current) drug therapy; Z79.890 Hormone replacement therapy; Z88.1 Allergy status to other antibiotic agents; Z88.5 Allergy status to narcotic agent; X58.XXXA Exposure to other specified factors, initial encounter
CPT/HCPCS: 96372 ×3; 82075; 96374; 99285; 36415; 80053 ×3; 83735 ×2; 84100 ×2; 84484; 85025 ×3; 81001; 80306; 80143; 80179; 72125; 70450; G0378 ×4; G0480; J2060; J3420; J1650 ×2; 80320